=== PATIENT | female | born 1955 | race Caucasian/White ===

== ENCOUNTER 2016-09-28 15:03 | Emergency (ER) ==
[2016-09-28 15:11] VITALS: BP 131/71
[2016-09-28] MEDS ORDERED: NORCO-5 PO ONE (16:14)
--- NOTE | 2016-09-28 16:19 | PROVIDER DOCUMENTATION ---
HPI-Musculoskeletal Pain/Inj - GENERAL Source: patient - HX OF PRESENT ILLNESS-MUSKULOSKELTAL Quality of Pain: reports: aching Severity in ED: mild Onset/Duration: just prior to arrival Timing: still present, intermittent Modifying Factors: improves with: nothing Any recent injury?: Yes (fall ) Locality of Occurance: Home Similar Symptoms Previously?: Yes Recently seen or treated by another doctor?: No - FALL INJURY Location of Pain/Injury: reports: lower extremity (L knee) Pain Radiation: reports: no radiation Reason for Fall: reports: tripped Symptoms prior to fall:: reports: none Loss of Consciousness: no loss of consciousness Injury Associated Symptoms: reports: other (L knee pain) - LOWER EXTREMITY PAIN/INJURY Lower Extremities Pain: knee: left (pain ) Context / Method of Injury: reports: fell Associated Symptoms: reports: denies symptoms <Maia Bailey - Last Filed: 09/28/16 16:13> <Maxine Brannon - Last Filed: 09/28/16 16:26> - GENERAL Chief Complaint: Fall Stated Complaint: FALL Time Seen by Provider: 09/28/16 16:04 - HX OF PRESENT ILLNESS-MUSKULOSKELTAL Nature of Presenting Problem: Pt is 61 y/o F presents to the ED with L knee pain. Pt states tripping through door and landing on L knee. Pt denies LOC. Pt states fall happened today. (Maia Bailey) Review of Systems - Adult - REVIEW OF SYSTEMS - ADULT Constitutional: reports: no symptoms reported Eyes: reports: no symptoms reported Ears, Nose, Mouth & Throat: reports: no symptoms reported Cardiovascular: reports: no symptoms reported Respiratory: reports: no symptoms reported Gastrointestinal: reports: no symptoms reported Genitourinary: reports: no symptoms reported Musculoskeletal: reports: other (L knee). denies: bone pain, joint pain, neck pain Integumentary: reports: no symptoms reported Neurological: reports: no symptoms reported Psychiatric: reports: no symptoms reported Endocrine: reports: no symptoms reported Hematologic/Lymphatic: reports: no symptoms reported Allergic/Immunologic: reports: no symptoms reported All Other Systems: Reviewed and Negative <Maia Bailey - Last Filed: 09/28/16 16:13> Past History - Adult - PAST MEDICAL HISTORY-ADULT Review of Records: reports: Nursing Assessment Review, Medications Reviewed, Social history reviewed & non-contributory. Major Childhood Illnesses: reports: denies history Cardiovascular: reports: cardiac disease, HTN, hyperlipidemia Respiratory: reports: denies history Gastrointestinal: reports: denies history Obstetrical/Gynecological: reports: denies history Genitourinary: reports: denies history Musculoskeletal: reports: other (carpal tunnel) Neurological: reports: Multiple Sclerosis Endocrine/Immune: reports: Diabetes Other Conditions: reports: denies history - PRIOR SURGERIES/PROCEDURES Surgical/Procedure History: reports: CABG, hysterectomy, other (AAA repair, ulnar nerve release bilat UE) - IMMUNIZATION STATUS Childhood Immunizations: See Nurse Assessment Flu Vaccine: See Nurse Assessment - FAMILY HISTORY Family History: reviewed, not pertinent - SOCIAL HISTORY Smoking: denies Substance Use: denies Living Situation: family <Maia Bailey - Last Filed: 09/28/16 16:13> Physical Exam-Injury Related - Physical Exam-Injury Related Initial Vital Signs Reviewed: Yes General Appearance: appears well, alert, no apparent distress Eyes: PERRL/EOMI, pink conjunctivae, fundi clear, no AV nicking Head, Ears, Nose, Mouth & Throat: normocephalic/atraumatic, moist mucous membranes, normal ENT inspection, TMs normal, pharynx normal Neck: non-tender, full range of motion, supple, normal inspection Respiratory: chest non-tender, lungs clear, normal breath sounds, no pleuratic chest pain, no respiratory distress, no accessory muscle use Cardiovascular: normal peripheral pulses, regular rate, rhythm, no edema, no gallop, no JVD, no murmur Abdominal Exam: normal bowel sounds, non tender, soft, no organomegaly, no pulsatile mass Lymphatic: no adenopathy Back Exam: normal inspection, no CVA tenderness, no vertebral tenderness Extremity: normal range of motion, no pedal edema, no calf tenderness, normal capillary refill, tenderness (L knne) Integumentary: normal color, warm/dry Neurologic: grossly normal Psych/Mental Status: normal mood/affect, oriented x 3 <Maia Bailey - Last Filed: 09/28/16 16:13> Progress - XRAY 1 XRAY: Left XRAY Study: Knee Impression: Abnormal XRAY Interpretation: ? small nondepressed fracture of lateral tibial plateau <Maia Bailey - Last Filed: 09/28/16 16:13> <Maxine Brannon - Last Filed: 09/28/16 16:26> - PLAN OF CARE/RESULTS Progress/Plan/Lab Results: Orders Category Date Time Status Crutches DIRECTED Care 09/28/16 16:14 Active Knee Immobilizer .left Care 09/28/16 16:14 Active KNEE 3 VIEWS LEFT [RAD] Stat Exams 09/28/16 15:11 Taken Hydrocodone/APAP 5 mg/325 mg [Belt-5] Med 09/28/16 16:14 Discontinued 1 each PO NOW ONE Vital Signs - 24 hr 09/28/16 15:07 Temperature 98 F Pulse Rate 90 Respiratory 18 Rate Blood Pressure 131/71 O2 Sat by Pulse 98 Oximetry (Maia Bailey) Discussed results and plan of care with patient. Patient agrees with plan and verbalizes understanding. Vital Signs Temp Pulse Resp BP Pulse Ox 09/28/16 15:07 98 F 90 18 131/71 98 No Known Allergies Allergy (Verified 09/01/16 18:32) Aspirin 325 mg PO DAILY 05/15/15 Clonazepam [Klonopin] 0.5 mg PO DAILY PRN PRN 05/15/15 Clopidogrel Bisulfate [Plavix] 75 mg PO DAILY 05/15/15 Ezetimibe [Zetia] 10 mg PO DAILY 05/15/15 Levothyroxine [Synthroid] 25 mcg PO DAILY 05/15/15 Sertraline HCl 50 mg PO DAILY 05/15/15 Tramadol [Ultram] 50 - 100 mg PO Q6H PRN PRN 02/18/16 Amlodipine Besylate 10 mg PO DAILY 07/02/16 Atorvastatin Calcium 20 mg PO DAILY 07/02/16 Bupropion HCl 100 mg PO BID 07/02/16 Carvedilol 12.5 mg PO BID 07/02/16 Hydrocodone/Acetaminophen [Belt 5-325 Tablet] 1 each PO Q4-6H PRN PRN #20 tablet 07/02/16 Insulin Aspart [Novolog] 0 unit SQ DIRECTED 07/02/16 Insulin Aspart [Novolog] 28 unit SQ TID 07/02/16 Insulin Glargine [Lantus] 45 unit SUBQ BID 07/02/16 Nortriptyline HCl 75 mg PO HS 07/02/16 Phenytoin Sodium Extended 300 mg PO HS 07/02/16 Pregabalin [Lyrica] 300 mg PO BID 07/02/16 Tizanidine [Zanaflex] 4 - 8 mg PO TID 07/02/16 Trazodone HCl 150 mg PO HS 07/02/16 Tramadol [Ultram] 50 mg PO TID #10 tablet 09/01/16 Orders Category Date Time Status Crutches DIRECTED Care 09/28/16 16:14 Active Knee Immobilizer .left Care 09/28/16 16:14 Active KNEE 3 VIEWS LEFT [RAD] Stat Exams 09/28/16 15:11 Taken Hydrocodone/APAP 5 mg/325 mg [Belt-5] Med 09/28/16 16:14 Discontinued 1 each PO NOW ONE (Maxine Brannon) Departure <Maia Bailey - Last Filed: 09/28/16 16:13> - Departure Time of Disposition Order: 16:22 Certified Medical Emergency: Emergent <Maxine Brannon - Last Filed: 09/28/16 16:26> - Departure DIAGNOSIS: Tibia fracture Qualifiers: Encounter type: initial encounter Tibia location: proximal Fracture type: closed Fracture morphology: unspecified fracture morphology Laterality: left Qualified Code(s): S82.102A - Unspecified fracture of upper end of left tibia, initial encounter for closed fracture Disposition: HOME 01 Condition: Stable Additional Instructions: Follow up with primary care physician Follow up with orthopedic physician Take medications as directed Return to ED for any concerns or worsening of symptoms ED Follow Up Instructions: You have been treated by a care provider in the Emergency Department. These instructions are being provided to you so you can have an understanding of how to care for yourself upon discharge. Upon discharge from the Emergency Department, you are responsible for making arrangements for follow-up care by a physician of your choice. Take all prescribed medications as directed. Return to the Emergency Department immediately for any new or worsening symptoms. You may call the Physician Referral phone number at [phone] to obtain a list of Physicians who are taking new patients. Prescriptions: Hydrocodone/APAP 5 mg/325 mg [Belt-5] 1 each PO Q6H PRN PRN #12 tablet PRN Reason: Pain Referrals: Gumaro Person MD [Primary Care Provider] - Rubia Barraza MD [STAFF PHYSICIAN] - Attestation - Scribe Verification/Attestation Scribe:: Maia Bailey Acting as Scribe for:: Maxine Brannon Scribe documention review:: This chart was documented by a scribe and accurately reflects the service the provider performed and the decisions made by the provider. <Maia Bailey - Last Filed: 09/28/16 16:13> - Physician/ JHONATHAN Attestation Patient care was provided by Advanced Practice Provider:: Yes Advanced Practice Provider:: Maxine Brannon Advanced Practice Provider documentation review:: The Mid-level provider documentation, treatment plan and medical decision making was reviewed by the physician who agrees with all treatment and medical decision making by the MLP. <Maxine Brannon - Last Filed: 09/28/16 16:26> Physician Attestation
--- NOTE | 2016-09-28 19:07 | Diag Imaging Result Document ---
PROCEDURE NAME: KNEE 3 VIEWS LEFT - 09/28/2016 LEFT KNEE 3 VIEWS: FINDINGS: Compared with 07/02/2016. There is a questionable small nondisplaced fracture of the lateral tibial plateau. There is no other fracture identified. There is no dislocation seen. There is no substantial thickening of the suprapatellar bursa seen. There are scattered atherosclerotic calcifications, and metallic surgical clips noted. IMPRESSION: Questionable small nondepressed fracture of lateral tibial plateau.
== END 2016-09-28 16:50 | disposition home or self-care (01) ==
LOC: P.ED 15:03
DX: S82.102A Unspecified fracture of upper end of left tibia, initial encounter for closed fracture (principal); M25.562 Pain in left knee; I10 Essential (primary) hypertension; E78.5 Hyperlipidemia, unspecified; E11.9 Type 2 diabetes mellitus without complications; G35 Multiple sclerosis; Z95.1 Presence of aortocoronary bypass graft; W01.0XXA Fall on same level from slipping, tripping and stumbling without subsequent striking against object, initial encounter

== ENCOUNTER 2016-12-05 20:54 | Inpatient (IN) ==
[2016-12-05] MEDS ORDERED: DILAUDID IV ONE (23:20)
[2016-12-05] MEDS ORDERED: NORCO-5 PO PRN (23:34)
[2016-12-05] MEDS ORDERED: TYLENOL PO PRN (23:37)
[2016-12-05] MEDS ORDERED: DILAUDID IV PRN (23:37)
[2016-12-05] MEDS ORDERED: ZOFRAN IV PRN (23:37)
[2016-12-05] MEDS ORDERED: NS 1,000 ML IV SCH (23:37)
[2016-12-05] MEDS ORDERED: OXY IR PO PRN (23:48)
[2016-12-06] MEDS: COREG PO SCH ×3 (00:24→20:45)
[2016-12-06] MEDS: OFIRMEV 1000 MG/ISOTONIC SOLN 1,000 MG/100 ML BOTTLE IV SCH ×3 (00:24→17:01)
[2016-12-06] MEDS: KLONOPIN PO PRN ×2 (00:24→20:46)
[2016-12-06] MEDS: MIRALAX PO SCH ×3 (00:24→20:43)
[2016-12-06] MEDS: LANTUS SUBQ SCH ×3 (00:25→20:49)
--- NOTE | 2016-12-06 03:34 | HISTORY AND PHYSICAL ---
PRIMARY CARE PHYSICIAN: REASON FOR ADMISSION: Left hip pain after a fall today. HISTORY OF PRESENT ILLNESS: Analilia Birmingham is a 61-year-old lady with past medical history of multiple sclerosis, IBS, coronary artery disease, sleep apnea, type 2 diabetes, hyperlipidemia, reflux disease, kidney stones, multiple sclerosis. She reports that she has had numerous falls and sustained 3 fractures since July 02 of last year. The most recent fracture was 4 metatarsal fractures of her right foot for which she was prescribed an orthopedic boot. She was trying to put on the boot today when she for some reason fell backwards, hit her head, and landed on the left side of her body. She denies any loss of consciousness. No headache or visual problems. When she tried to get up she could not because she had excruciating pain on the left hip. Her daughter was nearby and she managed to get her up and drove her to the ER in [facility]. During the evaluation they discovered she had a nondisplaced femoral neck fracture and contacted Dr. Price, the orthopedist, who recommended she be transferred to our service. The patient is complaining of pain 8 out of 10, excruciating, nonradiating, worse when she moves the slightest. Denies any numbness in her left lower extremity. No urinary incontinence. No cardiorespiratory complaints. Last took Plavix 3 days ago because she ran out of it. She takes Plavix and aspirin for CABG done several years ago. No blood loss. No cardiorespiratory complaints, GI, or any neurological complaints. REVIEW OF SYSTEMS: Twelve system review is negative. Positives per HPI. Notable for constipation. ALLERGIES: None. HOME MEDICATIONS: 1. Norvasc 5 mg daily. 2. Amantadine 100 mg b.i.d. 3. Aspirin 325 mg daily. 4. Plavix 75 mg daily. 5. Lipitor 20 mg daily. 6. Baclofen 10 mg t.i.d. 7. Tizanidine 48 mg t.i.d. 8. Bupropion 75 mg b.i.d. 9. Coreg 25 mg b.i.d. 10. Klonopin 0.5 mg b.i.d. 11. Klonopin 0.1 mg daily p.r.n. 12. Zetia 10 mg daily. 13. [place] 7.5 q.4h. p.r.n. 14. Ibandronate 150 mg monthly I presume . 15. NovoLog 28 units subcutaneous. 16. Lantus 45 units b.i.d. 17. Synthroid 25 mcg daily. 18. Lisinopril 20 mg b.i.d. 19. Nortriptyline 50 mg at bedtime. 20. Phenytoin 200 mg at bedtime. 21. Lyrica 300 mg b.i.d. 22. Zoloft 50 mg daily. 23. Tramadol 50 mg to 100 mg p.r.n. 24. Trazodone 150 mg at bedtime. SURGICAL HISTORY: Patient has had bypass surgery. She has had a AAA repair. Carpal tunnel surgery x2. Right ulnar nerve release. Bilateral shoulder surgery. Hysterectomy. FAMILY HISTORY: Positive for heart disease, diabetes and lung cancer in first-degree relative. SOCIAL HISTORY: Lives with daughter. She is . She has no habits whatsoever. LABORATORY WORK: BUN 20, creatinine 0.8. Glucose 63. Urinalysis is clean. White count 8000, H and H 12 and 37, platelets 178,000. EKG showed LVH with normal sinus rhythm. X-rays showed nondisplaced femoral neck fracture. PHYSICAL EXAMINATION: VITAL SIGNS: Her blood pressure is 194/73, heart rate is 85, respirations 18, temperature is 98.1. GENERAL: She is a middle-aged woman who is in moderate distress from her pain. She is A and O x3. Normal mood and affect. HEENT: Head is normocephalic, atraumatic. Eyes: NICHOLE, EOMI. She is anicteric, not pale. ENT: Exam is grossly normal. No central cyanosis. NECK: Supple. No JVD or carotid bruit. No thyromegaly. CHEST: Clear to auscultation with good air entry both lung harper. CARDIOVASCULAR: First and second heart sounds heard. No gallops, rubs. Rhythm is regular. ABDOMEN: Full, soft, nontender. No masses or organomegaly. Bowel sounds are hypoactive. RECTAL: Deferred at this time. EXTREMITIES: Left lower extremity is slightly shorter than the right and is not rotated. Pulses distally both extremities are intact. No sensory deficits. The patient is able to wiggle both sets of toes, but left less so than right because of the pain. No edema, clubbing or cyanosis. NEUROLOGIC SYSTEM: Grossly intact, although left lower extremity exam is limited due to the pain. SKIN: Intact. No breakdown, lesions or erythema. MUSCULOSKELETAL: Exam is grossly normal. ASSESSMENT: 1. Left hip fracture. 2. Coronary artery disease. 3. Peripheral artery disease. 4. Type 2 diabetes. 5. Hypertension. 6. Multiple sclerosis. 7. Hyperlipidemia. 8. Sleep apnea. PLAN: At this time, the patient will be admitted for pain control in anticipation of surgery tomorrow. The patient has no acute coronary symptoms. Due to the acute nature of her problems and stability of her problems, she can proceed with surgery with usual cardiovascular risk. For now, she says she ran out of her Plavix and this can be restarted postoperatively; however, she needs to be on aspirin throughout the course of her stay. This patient is on a ton of medications which could influence her sensorium and level of lucidity. The patient does not think this is causing any problems, but I am concerned that she has had several falls culminated in 4 fractures in less than 6 months. I strongly recommend that her medications be reviewed and either discontinued or tapered off most of these medications. Follow labs in the a.m. and I have cut the dose of her Lantus and insulin in light of the fact that she will be n.p.o. and probably her oral intake will also decline. Recommended A1c in a.m. and modify her insulin regimen accordingly. cc: Rocco Reyes MD
[2016-12-06 06:07] LABS: MANUAL DIFF NEEDED? NO
[2016-12-06] MEDS ORDERED: DILAUDID IV ONE (06:08)
[2016-12-06 06:13] LABS: BASO% 0.3 % (0.0-0.8); EOS# 0.08 X1000 (0.0-0.7); EOS% 1.2 % (0.0-10.0); HEMATOCRIT 33.4 % (37.0-47.0); HEMOGLOBIN 11.2 g/dL (12.0-16.0); IMM GRAN# 0.04 X1000 (0.0-0.04); IMM GRAN% 0.6 % (0.0-0.5); LYMPH# 1.79 X1000 (1.2-3.4); LYMPH% 26.4 % (20.5-51.1); MCH 30.9 PG (27-31); MCHC 33.5 g/dL (33-37); MONO# 0.59 X1000 (0.11-0.59); MONO% 8.7 % (1.7-9.3); MPV 11.1 FL (7.4-10.4); NEUT% 62.8 % (42.2-75.2); PLT 143 X1000 (130-400); RBC 3.63 XMIL (4.2-5.4)
[2016-12-06] MEDS ORDERED: DILAUDID ONE (06:21)
[2016-12-06 06:28] LABS: HEMOGLOBIN A1C 7.3 % (4.8-6.0)
[2016-12-06 06:38] LABS: AGAP 15; ALBUMIN 3.5 g/dL (3.5-5.0); ALKALINE PHOSPHATASE 111 U/L (32-104); BUN 16 mg/dL (8-22); CALCIUM 8.6 mg/dL (8.8-10.2); CHLORIDE 103 mmol/L (98-107); COSMO 283; GOT 14 U/L (10-30); GPT 16 U/L (10-36); POTASSIUM 3.8 mmol/L (3.5-5.1); SODIUM 141 mmol/L (136-145); TCO2 23 mmol/L (25-35); TOTAL BILIRUBIN 0.16 mg/dL (0.20-1.00); TOTAL PROTEIN 6.3 g/dL (6.3-8.3)
[2016-12-06] MEDS: HUMALOG SUBQ SCH ×4 (06:59→20:45)
[2016-12-06] MEDS ORDERED: INSULIN PEN NEEDLES ONE (07:36)
[2016-12-06] MEDS: DILAUDID IV PRN ×3 (09:23→23:21)
[2016-12-06] MEDS: ZOLOFT PO SCH (09:28)
[2016-12-06] MEDS: LYRICA PO SCH ×2 (09:29→20:44)
[2016-12-06] MEDS: SYMMETREL PO SCH ×2 (09:29→20:45)
[2016-12-06] MEDS: WELLBUTRIN PO SCH ×2 (09:30→20:45)
[2016-12-06] MEDS: ASPIRIN PO SCH (09:30)
[2016-12-06] MEDS: PRINIVIL PO SCH ×2 (09:30→20:46)
[2016-12-06] MEDS: NORVASC PO SCH (09:30)
[2016-12-06] MEDS: LIORESAL PO SCH ×3 (09:31→17:02)
[2016-12-06] MEDS ORDERED: KEFZOL 1 GM/D5W 1 GM/50 ML IVPB IV ONE (09:36)
[2016-12-06] MEDS: DILAUDID ONE ×4 (14:42→14:57)
[2016-12-06] MEDS ORDERED: NS 1,000 ML ONE (14:44)
[2016-12-06] MEDS ORDERED: MILK OF MAGNESIA PO PRN (16:01)
[2016-12-06] MEDS ORDERED: ZOFRAN IV PRN (16:01)
[2016-12-06] MEDS ORDERED: NS 1,000 ML IV SCH (16:01)
[2016-12-06] MEDS ORDERED: HALDOL IV PRN (16:01)
[2016-12-06] MEDS: OXY IR PO PRN ×2 (17:01→20:56)
[2016-12-06] MEDS: TYLENOL PO SCH (17:01)
--- NOTE | 2016-12-06 17:19 | CONSULTATION ---
DATE OF CONSULTATION: 12/06/2016 CHIEF COMPLAINT: Left hip pain. HISTORY OF PRESENT ILLNESS: This is a 61-year-old female who had a fall last night. Presented to the ER in [facility] and diagnosed with an impacted subcapital femoral neck fracture suspected by x- ray and confirmed by CT scan and then was referred to [facility]. She complains of intractable left hip pain and inability to ambulate. PHYSICAL EXAMINATION: General: Well-developed, well-nourished female. She is alert, oriented, and cooperative with the exam. She is painful just lying in bed. She has pain with any range of motion of her hip. Her leg is neurovascularly intact. DIAGNOSTIC STUDIES: X-rays of her hip from [place] show an impacted femoral neck fracture. IMPRESSION: Left impacted femoral neck fracture. PLAN: I have discussed treatment options with her and she wishes to proceed with closed reduction and percutaneous pinning of her left hip. I have discussed with her the risks, benefits, and alternatives of this including, but not limited to, bleeding, nerve damage, infection, risk from anesthesia, continued hip pain, hardware failure, malunion, nonunion, possibility of further surgery required up to and including loss of limb, life, and other imponderables. She voices her understanding. All questions were answered. She would requests we proceed as planned. No guarantees were given. cc: Ruy Price MD
--- NOTE | 2016-12-06 18:23 | PROGRESS NOTE ---
DATE: 12/06/2016 SUBJECTIVE: Today Ms. Birmingham referred to be doing relatively fine. Continues to have some pain in the left hip. Has been evaluated by orthopedics and she is pending surgery today. OBJECTIVE: Vital signs: Blood pressure is 162/70, pulse of 72, respirations 18, temperature 98.6 degrees, O2 saturation is 93%. General: Ms. Birmingham is a 61-year-old female. She is in bed. No significant distress. HEENT: Mucosa slightly dry. Anicteric and acyanotic. Neck: Supple. Chest: Good air entry bilateral. No crepitations. No rhonchi. Cardiovascular: Regular rate and rhythm. Chest: There is an old sternotomy scar on the anterior chest wall. Abdomen: Soft, nontender. Bowel sounds are present. Extremities: No pedal edema. Musculoskeletal: There is tenderness mobilizing the left hip. LABORATORY DATA: WBC is 6.79, hemoglobin is 11.2, platelet count of 143,000. Chemistry is reviewed and completely unremarkable. ASSESSMENT: 1. Left hip fracture. The patient has been evaluated by orthopedics and there is a plan to intervene. 2. History of coronary artery disease status post coronary artery bypass graft. Patient does not have any active signs and does not have any chest pain, shortness of breath, and there is no active symptoms related to the heart. I will do an EKG to make sure that she is safe for the surgery. 3. History of multiple sclerosis. According to the patient that is the reason why she has very poor balance and keeps on falling down. 4. Hypertension. Stable. 5. Dyslipidemia. Stable. 6. Diabetes mellitus with a presenting A1c of 7.3. Stable. PLAN: So in general, I think Ms. Birmingahm is relatively stable. She does not have any acute cardiac symptoms. We will do an EKG. I think if the EKG is okay she should be okay for her orthopedic surgery. cc: Gabriel Gibson MD
[2016-12-06] MEDS ORDERED: DIPRIVAN 1% ONE (19:57)
[2016-12-06] MEDS: PERIDEX MT SCH (20:43)
[2016-12-06] MEDS: DILANTIN PO SCH (20:44)
[2016-12-06] MEDS: LIPITOR PO SCH (20:45)
[2016-12-06] MEDS: SYNTHROID PO SCH (20:45)
[2016-12-06] MEDS: COLACE PO SCH (20:45)
[2016-12-06] MEDS: KEFZOL 1 GM/D5W 1 GM/50 ML IVPB IV SCH (20:48)
--- NOTE | 2016-12-06 22:43 | OPERATIVE NOTE ---
PROCEDURE DATE: 12/06/2016 PREOPERATIVE DIAGNOSIS: Left impacted femoral neck fracture. POSTOP DIAGNOSIS: Left impacted femoral neck fracture. PROCEDURE: Closed reduction and percutaneous pinning of left impacted femoral neck fracture. ANESTHESIA: General. SURGEON: Ruy Price MD. COMPLICATIONS: None. BLOOD LOSS: Minimal. DESCRIPTION OF PROCEDURE: The patient brought to operative suite and placed in supine position. After successful administration of general anesthesia, the patient's left hip was reduced under fluoroscopy and the left hip was prepped and draped in usual sterile fashion on the OSI bed. A longitudinal incision made overlying the flare of the greater trochanter, cannulated screw, guide pin was placed in center of the femoral canal on AP and lateral images. Once it was verified to be in good position 2 other pins were placed in inverted triangle position. Excellent placement of the pins was obtained. They were measured 80 mm inferiorly and 85 mm for the 2 superior pins and then the lateral cortex was reamed and the screws were driven into place under fluoroscopy. Once they were verified to be in good position the guide pins were removed and fluoroscopy again showed the pins in good position with the fracture well reduced. Wound was copiously irrigated. Skin edge approximated with 2-0 Vicryl. Skin was closed with skin tyler and a sterile dressing was applied. The patient tolerated the procedure well without complication. At the end the procedure all counts correct x2. The patient transferred to recovery room in stable condition. cc: Ruy Price MD
[2016-12-07] MEDS: DILAUDID IV PRN ×3 (03:16→23:03)
[2016-12-07] MEDS: OXY IR PO PRN ×3 (04:32→20:02)
[2016-12-07 06:17] LABS: HEMATOCRIT 33.5 % (37.0-47.0)
[2016-12-07] MEDS: KEFZOL 1 GM/D5W 1 GM/50 ML IVPB IV SCH (06:25)
[2016-12-07] MEDS: TYLENOL PO SCH ×3 (06:31→16:08)
[2016-12-07 06:45] LABS: AGAP 13; BUN 8 mg/dL (8-22); CALCIUM 8.4 mg/dL (8.8-10.2); CHLORIDE 104 mmol/L (98-107); COSMO 274; POTASSIUM 4.5 mmol/L (3.5-5.1); SODIUM 139 mmol/L (136-145); TCO2 22 mmol/L (25-35)
[2016-12-07] MEDS: HUMALOG SUBQ SCH ×4 (07:40→20:00)
[2016-12-07] MEDS: MIRALAX PO SCH ×2 (09:00→19:59)
[2016-12-07] MEDS: FERROUS SULFATE PO SCH (09:01)
[2016-12-07] MEDS: PERIDEX MT SCH ×2 (09:01→19:59)
[2016-12-07] MEDS: SYMMETREL PO SCH ×2 (09:01→20:01)
[2016-12-07] MEDS: ASPIRIN PO SCH (09:02)
[2016-12-07] MEDS: WELLBUTRIN PO SCH ×2 (09:02→20:01)
[2016-12-07] MEDS: PRINIVIL PO SCH ×2 (09:02→20:01)
[2016-12-07] MEDS: ZOLOFT PO SCH (09:02)
[2016-12-07] MEDS: NORVASC PO SCH (09:02)
[2016-12-07] MEDS: LIORESAL PO SCH ×3 (09:02→16:08)
[2016-12-07] MEDS: LYRICA PO SCH ×2 (09:03→20:01)
[2016-12-07] MEDS: COREG PO SCH ×2 (09:06→20:01)
[2016-12-07] MEDS ORDERED: EPHEDRINE ONE (09:07)
[2016-12-07] MEDS ORDERED: XYLOCAINE-MPF 2% ONE (09:07)
[2016-12-07] MEDS ORDERED: OFIRMEV 1000 MG/ISOTONIC SOLN 1,000 MG/100 ML BOTTLE ONE (09:07)
[2016-12-07] MEDS ORDERED: ROBINUL ONE (09:07)
[2016-12-07] MEDS ORDERED: NEO-SYNEPHRINE ONE (09:07)
[2016-12-07] MEDS ORDERED: ZOFRAN ONE (09:07)
[2016-12-07] MEDS ORDERED: DECADRON ONE (09:07)
--- NOTE | 2016-12-07 17:16 | PROGRESS NOTE ---
DATE: 12/07/2016 SUBJECTIVE: Today Ms. Farrell refers to be doing a lot better. She says she is not hurting at all. She had the surgery done yesterday and she is fine. OBJECTIVE: Vital signs: Blood pressure is 113/50, pulse of 71, respirations 18, temperature is 98.3 degrees. General: Ms. Birmingham is a 61-year-old female. She is in bed, not seemingly distressed. HEENT: Mucosa is pink and moist. Anicteric and acyanotic. Neck: Supple. Chest: Clear. Cardiovascular: Regular rate and rhythm. Abdomen: Soft, nontender. Extremities: No pedal edema. The left hip is mildly tender on palpation. LABORATORY DATA: Hemoglobin is 11. Chemistry is reviewed, completely normal. ASSESSMENT: 1. Left hip fracture status post intervention. Two screws were applied. This was done by Dr. Price yesterday. 2. History of coronary artery disease status post coronary artery bypass graft . The patient is stable. There are not any active signs of coronary artery disease. 3. History of multiple sclerosis. 4. Hypertension. 5. Dyslipidemia. 6. Diabetes mellitus with presenting A1c of 7.3. PLAN: In general, Ms. Birmingham is doing fine. She got physical therapy today, she was able to sit up in a chair. She is going to continue with physical therapy. We will plan her discharge possibly for tomorrow. We did discuss the possibility of rehab with her, but she thinks she will be okay at home. She already has a home health agency that checks on her. cc: Gabriel Gibson MD
[2016-12-07] MEDS: LANTUS SUBQ SCH (19:59)
[2016-12-07] MEDS: SYNTHROID PO SCH (20:00)
[2016-12-07] MEDS: DILANTIN PO SCH (20:00)
[2016-12-07] MEDS: COLACE PO SCH (20:01)
[2016-12-07] MEDS: LIPITOR PO SCH (20:02)
[2016-12-07] MEDS: KLONOPIN PO PRN (23:03)
[2016-12-08] MEDS: TYLENOL PO SCH ×2 (04:02→05:20)
[2016-12-08] MEDS: OXY IR PO PRN (05:21)
[2016-12-08 05:37] LABS: HEMOGLOBIN 11.5 g/dL (12.0-16.0)
[2016-12-08] MEDS: HUMALOG SUBQ SCH (07:22)
[2016-12-08] MEDS: PRINIVIL PO SCH (08:18)
[2016-12-08] MEDS: SYMMETREL PO SCH (08:18)
[2016-12-08] MEDS: MIRALAX PO SCH (08:18)
[2016-12-08] MEDS: LYRICA PO SCH (08:19)
[2016-12-08] MEDS: ASPIRIN PO SCH (08:19)
[2016-12-08] MEDS: FERROUS SULFATE PO SCH (08:19)
[2016-12-08] MEDS: WELLBUTRIN PO SCH (08:19)
[2016-12-08] MEDS: ZOLOFT PO SCH (08:19)
[2016-12-08] MEDS: COREG PO SCH (08:19)
[2016-12-08] MEDS: NORVASC PO SCH (08:19)
--- NOTE | 2016-12-08 08:34 | PROGRESS NOTE ---
DATE: 12/08/2016 SUBJECTIVE: Analilia Birmingham is a 61-year-old female who is postoperative day 2 from closed reduction and percutaneous pinning of her left hip. 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 However, she has not progressed much with therapy. She has no complaints as far as pain of her hip is concerned, however. OBJECTIVE: General: She is a well-developed, well-nourished female. She is cooperative with exam. She has no pain with range of motion of her hip. Her wound is clean, dry, and intact without sign of infection. ASSESSMENT: Stable left hip. PLAN: Given her recent falls and the fact that she has been unable to ambulate, I do not recommend that she be discharge to home. However, if she does leave AMA recommend that she have home health which she already has and be sure that she has close supervision. I suspect if she goes home this early she will likely fall again and we will be seeing her back in the hospital. If she does go home I would like to see her back in the office next week. I have made an appointment in the computer. cc: Ruy Price MD
[2016-12-08] MEDS ORDERED: PLAVIX PO SCH (09:00)
[2016-12-08] MEDS ORDERED: LIORESAL PO SCH (09:00)
[2016-12-08 11:07] VITALS: BP 151/67
--- NOTE | 2016-12-08 19:08 | DISCHARGE SUMMARY ---
ADMISSION DATE: 12/05/2016 DISCHARGE DATE: 12/08/2016 CONSULTATIONS: Dr. Ruy Price with Orthopedics. PERTINENT PROCEDURES: A closed reduction and percutaneous pinning of left impacted femoral neck fracture. DISCHARGE DIAGNOSES: 1. Left hip fracture status post intervention, two screws were applied by Dr. Price. The patient has worked with physical therapy. We talked extensively to the patient as well as the daughter about the patient's need to be discharged to rehab however they have declined. The patient has been set up with [facility] with physical therapy. 2. History of falls. Aware. The patient and daughter have refused rehab. They have been set up with [facility]. 3. Coronary artery disease history status post CORONARY ARTERY BYPASS GRAFT. Stable. 4. Multiple sclerosis history. Aware. 5. Hypertension. 6. Dyslipidemia. 7. Diabetes mellitus with an A1c of 7.3. HOSPITAL COURSE: Ms. Birmingham is a 61-year-old female with past medical history multiple sclerosis, IBS, coronary artery disease, sleep apnea, type 2 diabetes, hyperlipidemia, GERD, kidney stones, multiple sclerosis. She reports that she has had numerous falls and sustained 3 fractures since July 02 of last year. Most recent fracture was for metatarsal fractures on the right foot for which she was just prescribed an orthopedic boot. She was trying to put the boot on and fell backwards and hit her head and landed on the left side of her body. She denied any loss of consciousness. No headache or visual problems. When she tried to get up she could not because she had excruciating pain in her left hip. Her daughter was nearby and managed to get the patient up and drove her to the ED in [facility]. During the evaluation she was discovered to have a nondisplaced femoral neck fracture. They contacted Dr. Price, the orthopedist who recommended her to be transferred to [facility] where she underwent a closed reduction and percutaneous pinning of the left impacted femoral neck fracture by Dr. Price. Dr. Price, as well as Dr. Gibson and social work instructor suggested rehab however her and her daughter have refused to go to rehab so [facility] has been set up. They did want the patient to go to rehab because they suspect if she goes home she will likely fall again and we will be seeing her back in the hospital. Dr. Price would like to see her back in 1 week. The patient did work with physical therapy while she was in the hospital. They did speak with the daughter again about the patient being a fall risk however she stated that there would be family members present to help care for the patient. Vital signs at time of her discharge, temperature is 98.1 degrees, heart rate 78, respirations 16, blood pressure 151/67, O2 is 97 % on 3 L nasal cannula. DISCHARGE DIET: Diabetic. DISCHARGE MEDICATIONS: As per Dr. Gibson. Please see MAR. FOLLOWUP: The patient is being discharged home with home health with [facility]. She will follow up with her primary care physician as well as Dr. Price on 12/17/2016 at 8:30 a.m. Patient can return to the ED for any worsening of symptoms. Discharge time 30 minutes. Dictated by BEHZAD Armstrong for Gabriel iGbson MD cc: Gabriel Gibson MD MTDD
[2016-12-09] MEDS ORDERED: XARELTO PO SCH (06:00)
== END 2016-12-08 12:26 | disposition home health service (06) ==
LOC: SUATTDRO 20:54 → 4N 20:54
PROVIDERS: ATTEND Internal Medicine

== ENCOUNTER 2017-03-03 20:30 | Inpatient (IN) ==
[2017-03-03] MEDS ORDERED: TYLENOL PO PRN (21:59)
[2017-03-03] MEDS ORDERED: ATIVAN IV PRN (22:13)
--- NOTE | 2017-03-03 22:49 | HISTORY AND PHYSICAL ---
REASON FOR ADMISSION: Possible intentional drug overdose and seizure. HISTORY OF PRESENT ILLNESS: Ms. Analilia Birmingham is a 61-year-old lady with multiple sclerosis, coronary artery disease, hypertension, hyperlipidemia, who was last seen here in November 2016 for a left hip fracture after a fall. She also has a history of type 2 diabetes, sleep apnea, irritable bowel syndrome, reflux disease. She called her daughter yesterday stating that she was in excruciating pain and numbness in her right extremity at 5 a.m. yesterday. She eventually was seen at [facility] where they did a CT scan and ruled out a stroke and assumed this was a flare up of multiple sclerosis. She then went home and about 8:30 a.m. she called her daughter who lives with her and told her that her pain had gotten worse. Daughter called her neurologist in [place] who scheduled an appointment to see her in the office tomorrow. The patient's daughter said she came home and found her mother on the floor altered, drowsy and then called EMS to bring her in. On arrival to the ER there, she was very obtunded and they thought she may have overdosed on tramadol. This is based on the fact that several pills of tramadol were scattered on the floor around her. She was given Narcan and about 30 minutes later she had a tonic-clonic seizure. She became very restless, and she was given some Ativan which calmed her down. The patient is unable to give me a good detailed history because she is very lethargic, but she did tell me that she had been hearing voices and she was depressed and she wanted to kill herself, but she said the voices did not tell her to hurt herself. The daughter tells me that she knows her mother is depressed, but she does not think she is psychotic. She thinks it might be something to do with an auditory problem she has from hearing apparatus in her head. REVIEW OF SYSTEMS: Twelve system review is very limited because of the patient's drowsy sensorium. She denies any GI or cardiorespiratory complaints at this time. ALLERGIES: No allergies. HOME MEDICATION LIST: Could not be ascertained because nobody knows what she is currently taking but per her old records, she was on amantadine, amlodipine, aspirin, Lipitor, baclofen, bupropion, Coreg, clonazepam, clonidine, Colace, ferrous sulfate, Boniva, NovoLog, Lantus, Synthroid, lisinopril, oxycodone, Dilantin, Lyrica, Xarelto, Zoloft, tramadol. PAST SURGICAL HISTORY: Patient has had bypass surgery. Abdominal aortic aneurysm repair. Carpal tunnel surgery. Right ulnar release. Bilateral shoulder surgery. Hysterectomy. More recently, left hip surgery. FAMILY HISTORY: Notable for heart disease, diabetes and lung cancer. SOCIAL HISTORY: Does not smoke, drink or use illicit drugs. She is . Lost her in July 2016. Lives with her daughter. LABORATORY WORK: Her white count is 9000, hemoglobin and hematocrit 12 and 35, platelets 155,000. BUN is 18, creatinine 0.5. UDS positive for barbiturates. EKG: First-degree AV block, normal sinus rhythm. Glucose 173. Urinalysis only 2+ protein was noted. PHYSICAL EXAMINATION: GENERAL: Middle-aged woman who is very lethargic. Will open eyes to her name. She is oriented only to person. She will follow basic commands i.e. move her fingers and toes when instructed, but other than that, I could not get much out of her. She has a flat affect. HEENT: Head is normocephalic, atraumatic. Eyes: NICHOLE, EOMI. She is anicteric and not pale. No nystagmus noted. No anisocoria noted. ENT and oropharyngeal exam is very limited, but no central cyanosis is noted. NECK: Supple. No JVD or carotid bruit. No thyromegaly. CHEST: Clear to auscultation. Good air entry both lung harper. CARDIOVASCULAR: First and second heart sounds heard. No gallops, murmurs, rubs. Rhythm is regular. ABDOMEN: Protuberant, soft, no tenderness. No megaly. Bowel sounds are hypoactive. RECTAL: Deferred at this time. EXTREMITIES: No edema, clubbing or cyanosis. Pulses distally in all extremities and have good volume and symmetrical. No edema. NEUROLOGIC: No focal deficits. SKIN: Intact. No breakdown lesion or erythema. MUSCULOSKELETAL: Grossly normal otherwise. ASSESSMENT: 1. Toxic encephalopathy probably from intentional drug overdose. 2. Seizures, probably related to Narcan, effect of inducing withdrawal from synthetic opioids. 3. Coronary artery disease. 4. Peripheral artery disease. 5. Type 2 diabetes. 6. Hypertension. 7. Multiple sclerosis. 8. Sleep apnea. 9. Hyperlipidemia. PLAN: At this time, we will keep patient in intensive care unit for close observation to ensure she does not have a repeat seizure, check her Dilantin level and if it is low, this may need to be corrected. We will resume all home medications that have antiepileptic properties i.e. Dilantin, Lyrica and clonazepam. I do believe patient's medication list needs to be re-evaluated because she is on several medications. May be interacting. She also might benefit from seeing a psychiatrist once she is medically stable due to the fact that she has a depressive component. DVT prophylaxis will be instituted. Fluids will be given and other supportive care will be instituted. cc: Rocco Reyes MD
[2017-03-03] MEDS: NS 1,000 ML IV SCH (23:40)
[2017-03-03] MEDS: ZOFRAN IV PRN (23:41)
[2017-03-03] MEDS: HEPARIN SUBQ SCH (23:54)
[2017-03-03] MEDS: COREG PO SCH (23:59)
[2017-03-03] MEDS: KLONOPIN PO SCH (23:59)
[2017-03-03] MEDS: DILANTIN PO SCH (23:59)
[2017-03-03] MEDS: LYRICA PO SCH (23:59)
[2017-03-04 06:34] LABS: MANUAL DIFF NEEDED? NO
[2017-03-04 06:38] LABS: BASO% 0.2 % (0.0-0.8); EOS# 0.02 X1000 (0.0-0.7); EOS% 0.2 % (0.0-10.0); HEMATOCRIT 34.8 % (37.0-47.0); HEMOGLOBIN 11.6 g/dL (12.0-16.0); IMM GRAN# 0.03 X1000 (0.0-0.04); IMM GRAN% 0.2 % (0.0-0.5); LYMPH# 1.53 X1000 (1.2-3.4); LYMPH% 12.4 % (20.5-51.1); MCH 31.1 PG (27-31); MCHC 33.3 g/dL (33-37); MCV 93.3 FL (81-99); MONO# 0.86 X1000 (0.11-0.59); MONO% 6.9 % (1.7-9.3); MPV 11.4 FL (7.4-10.4); NEUT% 80.1 % (42.2-75.2); PLT 150 X1000 (130-400); RBC 3.73 XMIL (4.2-5.4)
[2017-03-04 07:04] LABS: AGAP 13; ALBUMIN 3.8 g/dL (3.5-5.0); ALKALINE PHOSPHATASE 114 U/L (32-104); BUN 13 mg/dL (8-22); CALCIUM 8.5 mg/dL (8.8-10.2); CHLORIDE 104 mmol/L (98-107); COSMO 286; GOT 19 U/L (10-30); GPT 25 U/L (10-36); MAGNESIUM 1.5 mg/dL (1.5-2.7); POTASSIUM 4.1 mmol/L (3.5-5.1); SODIUM 143 mmol/L (136-145); TCO2 26 mmol/L (25-35); TOTAL BILIRUBIN 0.12 mg/dL (0.20-1.00); TOTAL PROTEIN 6.2 g/dL (6.3-8.3)
--- NOTE | 2017-03-04 07:45 | EKG Report ---
Test Performed on : 03/04/2017 05:56:10 AM Test Reason : chest pain Blood Pressure : / mmHG Vent. Rate : 078 BPM Atrial Rate : 078 BPM P-R Int : 168 ms QRS Dur : 096 ms QT Int : 410 ms P-R-T Axes : 057 -19 079 degrees QTc Int : 467 ms Normal sinus rhythm. Moderate voltage criteria for LVH, may be normal variant Borderline ECG When compared with ECG of 03-MAR-2017 22:44, (Unconfirmed) Nonspecific ST and T wave abnormality aVL T wave amplitude has increased in V1 shifted left persistant inferiorly Confirmed by Fantasma Michael DO ([id number]) on 03/06/2017 3:45:41 PM
--- NOTE | 2017-03-04 07:46 | EKG Report ---
Test Performed on : 03/03/2017 10:44:05 PM Test Reason : drug od Blood Pressure : / mmHG Vent. Rate : 085 BPM Atrial Rate : 085 BPM P-R Int : 238 ms QRS Dur : 092 ms QT Int : 404 ms P-R-T Axes : 030 -16 095 degrees QTc Int : 480 ms Sinus rhythm. with 1st degree AV block. Possible Left atrial enlargement Left ventricular hypertrophy with repolarization abnormality Abnormal ECG When compared with ECG of 01-SEP-2016 18:42, NH interval has increased Confirmed by Fantasma Michael DO ([id number]) on 03/06/2017 3:44:34 PM
[2017-03-04] MEDS: ZOFRAN IV PRN ×2 (08:18→15:15)
[2017-03-04] MEDS: LYRICA PO SCH ×2 (08:18→20:33)
[2017-03-04] MEDS: KLONOPIN PO SCH ×2 (08:19→20:33)
[2017-03-04] MEDS: COREG PO SCH ×2 (08:19→20:33)
[2017-03-04] MEDS: ASPIRIN PO SCH (08:19)
[2017-03-04] MEDS ORDERED: TYLENOL PO PRN (09:41)
--- NOTE | 2017-03-04 12:07 | Diag Imaging Result Doc PS360 ---
EXAM: MRI BRAIN W W/O CONTRAST HISTORY: multiple sclerosis TECHNIQUE: Axial, sagittal, and coronal images obtained in multiple sequences. These are followed the post contrasted axial and coronal images. COMPARISON: CT from 07/02/2016 FINDINGS: There is a 6 mm area of increased signal on the diffusion images in the left parietal lobe just above the lateral ventricle. This has increased signal on the FLAIR and T2-weighted images. No enhancement on the post contrasted images. There is only a single other tiny area of increased signal on the T2 and FLAIR weighted images within the left temporal lobe measuring only 1 to 2 mm. No other areas of abnormal signal. No midline shift. No hydrocephalus. No epidural or subdural fluid collection. Normal corpus callosum. Mild atrophy. IMPRESSION: 1.Mild atrophy 2.No enhancing mass 3.7 mm area of abnormal signal in the left parietal lobe. This may simply be a tiny recent lacunar infarct. No other abnormal areas to suggest multiple sclerosis. Electronically signed by Shant Marina 03/04/2017 12:05 PM
[2017-03-04] MEDS: NS 1,000 ML IV SCH ×2 (12:29→15:15)
[2017-03-04] MEDS: HEPARIN SUBQ SCH ×2 (13:15→23:09)
--- NOTE | 2017-03-04 13:43 | CONSULTATION ---
DATE OF CONSULTATION: 03/04/2017 HISTORY OF PRESENT ILLNESS: Ms. Birmingham is 61 years old and she had apparent first ever seizure yesterday. History from review of the available hospital chart and discussion with daughter at the bedside and discussion with the patient is that she took too many pills. There was earlier concern that she had taken too many tramadol because tramadol bottle and pills were discovered near her. However, her report to me now is that she did not take too many tramadol, but that she did take too many Zanaflex. When asked if this was "a few or a bunch," she said "a bunch." She reports not certain how many extra pills she took. Daughter supervises medicines. Home medicines include clonazepam 0.5 mg b.i.d. p.r.n. and daughter reports patient takes 1 dose each night. Daughter provides tramadol 50 mg 2 tablets each night, and patient has access to tramadol bottle during the day. Daughter reports tizanidine two tablets each night and patient has access to tizanidine bottle during the day. Daughter does not count tizanidine or tramadol pills. She also has phenytoin 300 mg daily recently for limb pain and phenytoin level was 4.3 this admission. She takes Lyrica 300 mg b.i.d. regularly without recent missed doses. Other than tramadol, medicines on board that might influence seizure threshold include bupropion possibly 75 mg b.i.d. Workup here includes lab showing WBC count 12,000, mildly elevated blood sugars , nothing else remarkable on chemistry profile. We do not have urine toxicology screen. Brain imaging this admission includes MRI done with and without contrast today reported to show 7 mm area of abnormal signal in the left parietal lobe, which seems most consistent with ischemic lesion. There are a few other scattered ischemic changes. Features are not typical of multiple sclerosis. There is no enhancement. The daughter and patient report no previous history of seizure. She has had some periods of sluggishness associated with blood sugar too high or too low, but never seizure. There may have been some medication errors in the past, but never seizure. On exam, Ms. Birmingham is supine, intermittently attentive, answering questions appropriately, following simple commands. I do not see any major focal neurologic deficit. I did not examine her motor and sensory systems thoroughly. There is no meningismus. Head is unremarkable. IMPRESSION: Clinical appearance is global encephalopathy, likely toxic encephalopathy related to either tramadol or tizanidine or both. Report that she had likely seizure is more consistent with tramadol effect than tizanidine. With Lyrica and phenytoin on board, although phenytoin level subtherapeutic, seizure would have been thought less likely. Appearance does not seem to be clonazepam withdrawal, and daughter's history sounds like she has not had clonazepam withdrawal. I do not have any urgent suggestion. When she is more alert and attentive, we can be more vigorous with neurologic exam and try to determine if the MRI finding correlates with any neurologic deficit. We might consider EEG later. For now, I would continue support and be optimistic she will continue spontaneous recovery. I have encouraged her and her daughter to take medicines as directed. Thanks for asking me to see Ms. Birmingham. cc: Nilam Alvarez III, MD MTDD
--- NOTE | 2017-03-04 17:41 | PROGRESS NOTE ---
DATE: 03/04/2017 SUBJECTIVE: The patient is groggy but able to answer questions. No acute events noted overnight. OBJECTIVE: Vital Signs: Temperature 98.5 degrees, blood pressure 162/73, heart rate 74, respirations 18, O2 saturation 94% on 4 L nasal cannula. General: This is an elderly female, lying in bed, in no acute distress. Head: Normocephalic, atraumatic. Heart: S1, S2. Normal. Regular rate and rhythm. Lungs: Clear to auscultation bilaterally. No wheezes. No rales. No rhonchi. Abdomen: Positive bowel sounds. Soft, nontender, nondistended. Extremities: No edema. No cyanosis. No calf tenderness. Neurologic: The patient is alert and oriented x3. No focal neurologic deficits noted. LABS: White blood cell count 12, hemoglobin 11, hematocrit 34, platelets 150,000. BUN 13, creatinine 0.5, sodium 143, potassium 4.1, chloride 104, CO2 26, glucose 120. ASSESSMENT AND PLAN: 1. Toxic encephalopathy. The patient took multiple medications and this is likely the reason for the patient's lethargy at this time. We will continue with gentle IV fluid hydration and wait for the medications to clear the patient's system. The patient has been seen by the neurologist and an MRI was done today that showed a possible left parietal area of ischemia. 2. Left parietal ischemia. The patient is on aspirin and Lipitor. We will continue to monitor the patient closely. Physical therapy has been consulted. 3. Coronary artery disease. Aware. 4. Multiple sclerosis. Aware. 5. Leukocytosis. Will check a urinalysis and urine culture. We will hold off on antibiotic therapy until those results are available. 6. Deep vein thrombosis prophylaxis. Continue on heparin. cc: Nadia Carr MD
[2017-03-04 18:55] LABS: URINE MICRO REVIEW NEEDED? NO; URINE SOURCE CATH
[2017-03-04 19:21] LABS: BILIRUBIN URINE NEGATIVE (NEGATIVE); BLOOD URINE SMALL (NEGATIVE); COLOR YELLOW; GLUCOSE URINE 100 mg/dL (NEGATIVE); LEUKOCYTES URINE NEGATIVE (NEGATIVE); NITRITE URINE NEGATIVE (NEGATIVE); PROTEIN URINE 70 mg/dL (NEGATIVE); SP GRAVITY URINE 1.025; TURBIDITY URINE CLEAR (CLEAR); UROBILINOGEN URINE NORMAL (NORMAL)
[2017-03-04 19:22] LABS: UR EPITHELIAL CELLS <10 /HPF (<10); URINE BACTERIA NEGATIVE /HPF; URINE RBC 20-40 /HPF (<10); URINE WBC <10 /HPF (<10)
[2017-03-04] MEDS: DILANTIN PO SCH (20:33)
[2017-03-04] MEDS: LIPITOR PO SCH (20:33)
[2017-03-05] MEDS: NS 1,000 ML IV SCH (02:28)
[2017-03-05] MEDS: PRILOSEC PO SCH (06:01)
[2017-03-05 07:17] LABS: HEMATOCRIT 34.1 % (37.0-47.0); HEMOGLOBIN 11.3 g/dL (12.0-16.0); MCH 32.3 PG (27-31); MCHC 33.1 g/dL (33-37); MCV 97.4 FL (81-99); MPV 12.3 FL (7.4-10.4); RBC 3.5 XMIL (4.2-5.4)
[2017-03-05 07:36] LABS: AGAP 12; BUN 9 mg/dL (8-22); CALCIUM 8.3 mg/dL (8.8-10.2); CHLORIDE 101 mmol/L (98-107); COSMO 278; POTASSIUM 3.8 mmol/L (3.5-5.1); SODIUM 139 mmol/L (136-145); TCO2 26 mmol/L (25-35)
[2017-03-05] MEDS: COREG PO SCH ×2 (08:55→21:10)
[2017-03-05] MEDS: ASPIRIN PO SCH (08:55)
[2017-03-05] MEDS: KLONOPIN PO SCH ×2 (08:55→21:11)
[2017-03-05] MEDS: LYRICA PO SCH ×2 (08:55→21:10)
--- NOTE | 2017-03-05 09:50 | PROGRESS NOTE ---
DATE: 03/05/2017 SUBJECTIVE/OBJECTIVE: Ms. Birmingham is awake, alert, attentive, oriented. She carried on appropriate conversation. Speech is not dysarthric. Language function is intact on brief bedside testing. Head and neck are unremarkable. There is no focal neurologic finding on bedside testing of power and coordination. I did not test her gait. Visual harper are full. Facial motility is symmetric. Tongue is midline. Shoulder shrug is equal. She reports being more certain now that she took 2 small cupfuls of tizanidine and that she did not take extra tramadol. IMPRESSION AND PLAN: 1. Global encephalopathy, toxic encephalopathy related to drug ingestion, resolving predictably, no evidence of permanent neurologic residual. I strongly encouraged her, with daughter present, to be careful with her medicines and to take them as directed. 2. Imaging evidence of small left hemisphere lesion consistent with infarction. I do not find a definite clinical deficit to correlate with that imaging finding. I think this is incidental and not responsible for her recent encephalopathy. 3. I do not have any new suggestion from neurologic standpoint. I hope she will continue to improve, be discharged soon, and be in touch with her treating neurologist in [place] at that point. Thanks for asking me to see Ms. Birmingham here. cc: Nilam Alvarez III, MD
--- NOTE | 2017-03-05 10:47 | PROGRESS NOTE ---
DATE: 03/05/2017 SUBJECTIVE: This patient is alert and oriented x3 today. She is moving all 4 extremities. She does not have any specific complaints. Vital signs are stable, blood pressure is a little bit high, though. I will restart her home medications of lisinopril and amlodipine. She is already on carvedilol, and I will transfer this patient to the medical floor. OBJECTIVE: Temperature is 98.4, pulse 67, respiratory rate on the monitor is 18, blood pressure on the monitor is 161/58, oxygen saturation is 96% on 3 L nasal cannula. HEENT: Head is atraumatic and normocephalic. PERRLA. Neck: Supple. No JVD. Normal central trachea. Chest: Clear to auscultation. No wheezing, no rales. Cardiovascular: Regular rate and rhythm. Abdomen: Soft, nontender, nondistended. No hepatosplenomegaly. Extremities: No edema, no clubbing, no cyanosis. Neurologic: The patient is alert and oriented x3. No focal neurological deficits. DIAGNOSTIC DATA: WBC is 8.9, hemoglobin 11.3, hematocrit 34.1, platelets 143. Sodium is 139, potassium 3.8, chloride 101, bicarbonate 26, BUN is 9, creatinine 0.6, glucose 127, calcium 8.3. ASSESSMENT AND PLAN: 1. Toxic encephalopathy, resolved. This is likely related to multiple medications. She is completely alert and oriented x3. No focal deficits. Neurology Department is following this patient. I will transfer this patient to the medical floor. 2. Likely tiny recent lacunar infarct around 3.7 mm area of abnormal signal in the left parietal lobe, this is likely secondary to her high blood pressure that apparently has been uncontrolled for the past month. As per her daughter, her blood pressure sometimes runs around 220 and 120. I have restarted her blood pressure medications today. 3. History of coronary artery disease. Aware. Continue with home medications. 4. Multiple sclerosis. Aware. 5. Leukocytosis. This is better. No signs of infection at this moment. 6. DVT prophylaxis. Continue with heparin. 7. Hypertension. I will restart her home medications. 8. Diabetes. I would put this patient on Lantus and sliding scale insulin. 9. Physical deconditioning. I will ask for Physical Therapy. Critical care time was 35 minutes. cc: Neymar Livingston MD
[2017-03-05] MEDS: PRINIVIL PO SCH (10:57)
[2017-03-05] MEDS: NORVASC PO SCH (10:57)
[2017-03-05] MEDS: HEPARIN SUBQ SCH ×3 (10:58→23:36)
[2017-03-05] MEDS: LANTUS SUBQ SCH (10:58)
[2017-03-05] MEDS: HUMULIN R SUBQ SCH ×3 (10:59→21:11)
[2017-03-05] MEDS ORDERED: HUMULIN R SUBQ SCH (11:00)
[2017-03-05] MEDS ORDERED: ALLEGRA D PO SCH (21:00)
[2017-03-05] MEDS: LIPITOR PO SCH (21:10)
[2017-03-05] MEDS: DILANTIN PO SCH (21:11)
[2017-03-06] MEDS: HUMULIN R SUBQ SCH ×2 (05:59→11:18)
[2017-03-06] MEDS: PRILOSEC PO SCH (06:00)
[2017-03-06 06:58] LABS: AGAP 14; BUN 13 mg/dL (8-22); CHLORIDE 99 mmol/L (98-107); COSMO 281; POTASSIUM 3.8 mmol/L (3.5-5.1); SODIUM 139 mmol/L (136-145); TCO2 26 mmol/L (25-35)
[2017-03-06 08:36] VITALS: BP 194/70
[2017-03-06] MEDS: PRINIVIL PO SCH (09:24)
[2017-03-06] MEDS: COREG PO SCH (09:25)
[2017-03-06] MEDS: NORVASC PO SCH (09:25)
[2017-03-06] MEDS: ASPIRIN PO SCH (09:25)
[2017-03-06] MEDS: LANTUS SUBQ SCH ×2 (09:26→11:12)
[2017-03-06] MEDS: KLONOPIN PO SCH (09:29)
[2017-03-06] MEDS: LYRICA PO SCH (09:29)
[2017-03-06] MEDS: HEPARIN SUBQ SCH (11:12)
[2017-03-06] MEDS ORDERED: INSULIN PEN NEEDLES ONE (11:57)
--- NOTE | 2017-03-07 06:20 | DISCHARGE SUMMARY ---
ADMISSION DATE: 03/03/2017 DISCHARGE DATE: 03/06/2017 DISCHARGE DIAGNOSES: 1. Global/toxic encephalopathy, resolved. 2. Likely tiny recent lacunar infarct, around 3.7 cm area, of abnormal signal, in the left parietal lobe. 3. History of coronary artery disease. 4. Hypertension. 5. Leukocytosis, resolved. 6. Diabetes. HOSPITAL COURSE: A 61-year-old female with a past medical history of multiple sclerosis, coronary artery disease, hypertension, hyperlipidemia, type 2 diabetes, sleep apnea, GERD. She called her daughter the day before admission stating that she was in excruciating pain and numbness in the right lower extremity at 5 a.m. She eventually was seen at [facility], where they did a CT scan and ruled out stroke. They assumed this was a flareup of multiple sclerosis. She then went home about 8:30 a.m., and because the pain was getting worse, the daughter called the neurologist in [place], who scheduled an appointment to see her in the office in a couple days. When the daughter went to her house to visit her mom, she found her on the floor, altered and drowsy. She called EMS to bring her in. Upon arrival to the ER, she was very obtunded, and they thought she may have overdosed on tramadol. She was given Narcan, and about 30 minutes later, she had a tonic-clonic seizure. She became very restless, and she was given some Ativan, which calmed her down. This patient was transferred to the ICU. Neurology Department evaluated this patient. We treated this patient with supportive measures, and also we treated her diabetes and hypertension. The patient was improving on a daily basis. She was not complaining of any pain or shortness of breath, or any specific problem. She was evaluated by Neurology Department, who agreed with supportive treatment. Today, this patient was completely fine, no more complaints, tolerating p.o. and ambulating. This is why we decided to discharge this patient with strict followup by her neurologist and primary care doctor. PHYSICAL EXAMINATION: Vital Signs: Temperature 98 degrees, pulse 65, respiratory rate 18, blood pressure 157/54, oxygen saturation 95 on room air. HEENT: Head normocephalic. No trauma. PERRLA. Neck: Supple. No JVD. No masses. Central trachea. Chest: Clear to auscultation. No wheezing. No rales. Abdomen: Soft, nontender, nondistended. No hepatosplenomegaly. Extremities: No edema. No clubbing. No cyanosis. Neurological: The patient was alert and oriented x3. No focal deficits. LABORATORY STUDIES: Sodium 139, potassium 3.8, chloride 99, bicarbonate 26, BUN 13, creatinine 0.5, glucose 154. Calcium 9. DISCHARGE MEDICATIONS: Amlodipine 10 mg p.o. daily, atorvastatin 40 mg p.o. at bedtime, lisinopril 20 mg p.o. daily, insulin Lantus 25 units subcu every morning, sertraline 50 mg p.o. daily, aspirin 325 mg p.o. daily, levothyroxine 25 mcg p.o. daily, Lyrica 300 mg p.o. twice a day, carvedilol 25 mg p.o. twice a day, phenytoin 300 mg at bedtime p.o., clonidine 0.1 mg p.o. daily p.r.n. as needed, Boniva 150 mg p.o. every 30 days, glatiramer 40 mg subcutaneously as directed, clonazepam 0.5 mg p.o. twice a day as needed, tramadol 50 mg p.o. q.6 hours as needed. This patient has been told not to take more than 1 every 6 hours. TIME SPENT: Time discharging this patient: 35 minutes. cc: Neymar Livingston MD
== END 2017-03-06 12:12 | disposition home or self-care (01) ==
LOC: SUATTDRO 20:30 → ICU 20:30 → 4N 03-05 13:11
PROVIDERS: ATTEND Internal Medicine

== ENCOUNTER 2018-10-06 07:05 | Inpatient (IN) ==
[2018-10-06] MEDS ORDERED: NS 1,000 ML IV ONE ×2 (07:46→10:00)
--- NOTE | 2018-10-06 07:50 | PROVIDER DOCUMENTATION ---
HPI-General Adult - General Chief Complaint: Altered Mental Status Stated Complaint: syncope Time Seen by Provider: 10/06/18 07:35 Source: family Allergies/Adverse Reactions: Patient Allergies Allergy/AdvReac Type Severity Reaction Status Date / Time No Known Allergies Allergy Verified 01/18/18 14:45 Home Medications: Home Medication List Medication Instructions Recorded Confirmed Last Taken Type Aspirin [Aspirin EC] 81 mg PO DAILY 10/06/18 10/06/18 10/05/18 History Atorvastatin Calcium [Lipitor] 40 mg PO DAILY 10/06/18 10/06/18 10/05/18 History Calcium Carbonate/Vitamin D3 1 ea PO BID 10/06/18 10/06/18 10/05/18 History [Calcium 500 + Vit D Caplet] Carvedilol 25 mg PO BID 10/06/18 10/06/18 10/05/18 History Clonazepam 0.5 mg PO DAILY 10/06/18 10/06/18 10/05/18 History Fenofibrate Nanocrystallized 160 mg PO DAILY 10/06/18 10/06/18 10/05/18 History [Fenofibrate] Furosemide 40 mg PO DAILY 10/06/18 10/06/18 10/05/18 History Hydralazine HCl 100 mg PO TID 10/06/18 10/06/18 10/05/18 History Isosorbide Mononitrate E.r. [Imdur] 60 mg PO DAILY 10/06/18 10/06/18 10/05/18 History Leflunomide 20 mg PO DAILY 10/06/18 10/06/18 10/05/18 History Lisinopril 20 mg PO DAILY 10/06/18 10/06/18 10/05/18 History Magnesium 250 mg PO BID 10/06/18 10/06/18 10/05/18 History Nortriptyline HCl [Pamelor] 75 mg PO DAILY 10/06/18 10/06/18 10/05/18 History [place]-3 Acid Ethyl Esters [Lovaza] 2 cap PO BID 10/06/18 10/06/18 10/05/18 H istory Phenytoin Sodium Extended 300 mg PO DAILY 10/06/18 10/06/18 10/05/18 History [Dilantin] Pramipexole [Mirapex] 0.5 mg PO QHS 10/06/18 10/06/18 10/05/18 History Pregabalin [Lyrica] 1 cap PO TID 10/06/18 10/06/18 10/05/18 History Sertraline [Zoloft] 50 mg PO DAILY 10/06/18 10/06/18 10/05/18 History Spironolactone 25 mg PO DAILY 10/06/18 10/06/18 10/05/18 History Ticagrelor [Brilinta] 90 mg PO BID 10/06/18 10/06/18 10/05/18 History - History of Present Illness -Gen Adult Nature of Presenting Problems: Pt accidently took another dose of muscle relaxant a few days ago, this cleared from her system and she returned back to her baseline, found on floor near bed 24 four hours ago, fall not witnessed; she had not been her normal self half a day prior to this. She is not ambulating, eating or drinking since yesterday morning, she is complaining of pain in her vagina, no bleeding reported, no fever. No known accidental overdose again. PMH MS dx 4 years ago DM very high cholesterol [place] 8 stents CABG 3V AO repair Location of Pain/Injury: reports: none Quality of Pain: reports: aching Severity: reports: mild Onset/Duration: reports: unsure Timing: reports: still present Review of Systems - Adult - REVIEW OF SYSTEMS - ADULT Constitutional: reports: fatique. denies: fever, night sweats, weight gain, weight loss Eyes: reports: no symptoms reported. denies: discharge Ears, Nose, Mouth & Throat: reports: no symptoms reported. denies: ear discharge Cardiovascular: reports: no symptoms reported. denies: chest pain, palpitations Respiratory: reports: no symptoms reported. denies: chronic cough, shortness of breath Gastrointestinal: reports: diarrhea. denies: difficulty swallowing, rectal bleeding, vomiting Genitourinary: reports: other (vaginal pain) Musculoskeletal: reports: no symptoms reported Integumentary: reports: no symptoms reported Neurological: reports: other (decreased interaction, weak) Psychiatric: reports: no symptoms reported Endocrine: reports: no symptoms reported Hematologic/Lymphatic: reports: no symptoms reported Allergic/Immunologic: reports: no symptoms reported All Other Systems: Reviewed and Negative Past History - Adult - PAST MEDICAL HISTORY-ADULT Review of Records: reports: Nursing Assessment Review, Medications Reviewed Major Childhood Illnesses: reports: denies history Cardiovascular: reports: cardiac disease, CAD, HTN, hyperlipidemia, DE Respiratory: reports: denies history Gastrointestinal: reports: denies history Obstetrical/Gynecological: reports: denies history Genitourinary: reports: kidney disease Musculoskeletal: reports: other (carpal tunnel) Neurological: reports: Multiple Sclerosis, Seizures/Epilepsy Endocrine/Immune: reports: Diabetes, thyroid disorder Other Conditions: reports: denies history - PRIOR SURGERIES/PROCEDURES Surgical/Procedure History: reports: CABG, hysterectomy, other (AAA repair, u lnar nerve release bilat UE) - IMMUNIZATION STATUS Childhood Immunizations: See Nurse Assessment Flu Vaccine: See Nurse Assessment - FAMILY HISTORY Family History: reviewed, not pertinent Physical Exam-General - PHYSICAL EXAM-ADULT Initial Vital Signs Reviewed: Yes - CONSTITUTIONAL General Appearance: alert, mild distress (moaning, between moaning, difficult to keep her attention to answer questions which she does with yes and no), other (pale) - EYES Eyes: pink conjunctivae. negative: meningismus, pale conjunctivae, photophobia, sclera injected, scleral icterus, subconjunctival hemorrhage - HEAD, EARS, NOSE, MOUTH & THROAT HENMT: other (dry mucus membranesl; PERRL) - NECK Neck: non-tender, supple - RESPIRATORY Respiratory: chest non-tender, lungs clear, normal breath sounds, no pleuratic chest pain, no respiratory distress, no accessory muscle use - CARDIOVASCULAR Cardiovascular: normal peripheral pulses, regular rate, rhythm, no edema, no murmur - GASTROINTESTINAL (ABDOMEN) Abdominal Exam: non tender, soft, other (diminished bowel sounds diffusley) - LYMPHATIC Lymphatic: no adenopathy - MUSCULOSKELETAL Extremity: normal range of motion, non-tender, normal inspection. negative: normal gait - SKIN Integumentary: normal turgor, warm/dry - NEUROLOGIC Neurologic: grossly normal, no motor/sensory deficits - PSYCHIATRIC Psych/Mental Status: normal mood/affect, normal thought content, other (Slow to answer yes and no and slow to tell me her name; Sultana 13) Progress - PLAN OF CARE/RESULTS Progress/Plan/Lab Results: Vital Signs - 8 hr 10/06/18 07:11 10/06/18 07:20 Temperature 97.9 F Pulse Rate 57 L 57 L Respiratory Rate 20 14 Blood Pressure 206/78 180/90 O2 Sat by Pulse Oximetry 98 98 Orders Category Date Time Status CBC WITH ELECTRONIC DIFF [HEME] Stat Lab 10/06/18 07:28 Ordered CK PROFILE [SP CHEM] Stat Lab 10/06/18 07:28 Ordered COMPREHENSIVE METABOLIC PANEL [CHEM] Stat Lab 10/06/18 07:28 Ordered TROPONIN T Stat Lab 10/06/18 07:28 Ordered CP/SOB/Palp >45 yrs of Age Stat Oth 10/06/18 07:12 Ordered EKG [EKG] Stat Ther 10/06/18 07:13 Ordered Wide differential not limited to post DE (EKG no stemi now), MS flare, AO problem, UTI, pneumonia, constipation Had on Depends opened for u cath, no blood in Depends or vaginal are Per chest xray worsening ill defined infiltrate in lingula, will start Rocephin and give Azithromycin by IV as pt po ability/safety may be limited at this time, WBC wnl but immature a bit elevated, lactate and trop wnl CK 314 likely reflects being in bed for 24 hours without leaving it, BUN/cr 56/1.8 last cr 1.67 with much lower BUN, dehydration, due to the fall rec to daughter head CT and CT cspine and would consider IV chest and abdomen CT if creatinine was not too high due to AO surgical history and vaginal pain (referred?), but creatinine elevated, will d/w hospitalist when CT results of head and cspine are done d/w daughter results and need to admit, she agreed 0951 d.w [place] HPI exam PMH results treatment, agreed to admit, will see pt in ED Result Diagrams: 10/06/18 08:00 10/06/18 08:00 - EKG 1 Time of EKG reading by physician:: 08:10 EKG Read and Signed by:: Jennifer Conde EKG Interpretation (*Must complete 3 of following elements*): Abnormal Rate: 63 Rhythm: NSR with PVCs [place]: normal QRS: normal [place] Interval: normal ST Wave: normal Departure - Departure Date of Disposition Decision: 10/06/18 Time of Disposition Decision: 10:01 DIAGNOSIS: Dehydration Altered mental status Qualifiers: Altered mental status type: unspecified Qualified Code(s): R41.82 - Altered mental status, unspecified Pneumonia Qualifiers: Laterality: left Lung location: unspecified part of lung Disposition: ADMITTED INPATIENT 09 Certified Medical Emergency: Emergent Condition: Good Referrals and Follow-Ups: Gumaro Person MD [Primary Care Provider] - - Critical Care Note This patient required my direct & personal management of CC.: No Attestation - Physician/ JHONATHAN Attestation The physician spent face to face time with patient:: Yes Advanced Practice Provider documentation review:: Supervising physician onsite and consulted in the evaluation and care of this patient. The physician did have a face to face encounter with the patient.
[2018-10-06 08:05] LABS: BASO# 0.03 X1000 (0.0-0.2); BASO% 0.4 % (0.0-0.8); EOS# 0.16 X1000 (0.0-0.7); EOS% 1.9 % (0.0-10.0); HEMATOCRIT 32.6 % (37.0-47.0); HEMOGLOBIN 10.5 g/dL (12.0-16.0); IMM GRAN# 0.05 X1000 (0.0-0.04); IMM GRAN% 0.6 % (0.0-0.5); LYMPH# 1.72 X1000 (1.2-3.4); LYMPH% 20.2 % (20.5-51.1); MCH 30.8 PG (27-31); MCHC 32.2 g/dL (33-37); MCV 95.6 FL (81-99); MONO# 0.46 X1000 (0.11-0.59); MONO% 5.4 % (1.7-9.3); MPV 11.8 FL (7.4-10.4); NEUT# 6.09 X1000 (1.4-6.5); NEUT% 71.5 % (42.2-75.2); PLT 149 X1000 (130-400); RBC 3.41 XMIL (4.2-5.4); RDW 13.7 % (11.5-14.5); WBC 8.51 X1000 (4.8-10.8)
--- NOTE | 2018-10-06 08:11 | Diag Imaging Result Doc PS360 ---
CHEST-PORTABLE - 10/06/2018 INDICATION: cough COMPARISON: 11/16/2017 FINDINGS: Stable sternotomy wires. There is some worsening ill-defined infiltrate in the lingula. Heart size and pulmonary vascularity are top normal. No pneumothorax or pleural effusion. IMPRESSION: Worsening ill-defined infiltrate in the lingula. Electronically signed by Randal Tao 10/06/2018 8:09 AM
[2018-10-06 08:17] LABS: BILIRUBIN URINE NEGATIVE (NEGATIVE); BLOOD URINE NEGATIVE (NEGATIVE); CLARITY CLEAR (CLEAR); COLOR YELLOW; GLUCOSE URINE NEGATIVE (NEGATIVE); KETONE URINE NEGATIVE (NEGATIVE); LEUKOCYTES URINE NEGATIVE (NEGATIVE); NITRITE URINE NEGATIVE (NEGATIVE); PH URINE 6.5; PROTEIN URINE NEGATIVE (NEGATIVE); SP GRAVITY URINE 1.015; UROBILINOGEN URINE NORMAL
[2018-10-06 08:19] LABS: URINE RBC <10 /HPF (<10); URINE SOURCE CATH
[2018-10-06 08:20] LABS: INR 1.05; PROTIME 14.2 Seconds (11.0-16.0)
[2018-10-06 08:23] LABS: AGAP 13; ALBUMIN 4.5 g/dL (3.5-5.0); ALKALINE PHOSPHATASE 23 U/L (32-104); BUN 56 mg/dL (8-22); CALCIUM 9.4 mg/dL (8.8-10.2); CHLORIDE 108 mmol/L (98-107); CK PROFILE 314 U/L (24-173); COSMO 308; CREATININE 1.8 mg/dL (0.5-0.9); ESTIMATED GFR 28; GLUCOSE 131 mg/dL (70-104); GOT 19 U/L (10-30); GPT 18 U/L (10-36); POTASSIUM 4.6 mmol/L (3.5-5.1); SODIUM 146 mmol/L (136-145); TCO2 25 mmol/L (25-35); TOTAL BILIRUBIN < 0.15 mg/dL (0.20-1.00); TOTAL PROTEIN 7.3 g/dL (6.3-8.3)
[2018-10-06] MEDS ORDERED: ROCEPHIN IM ONE (08:29)
[2018-10-06] MEDS ORDERED: XYLOCAINE-MPF 1% INJ ONE (08:29)
[2018-10-06] MEDS ORDERED: ZITHROMAX 500 MG/NS 500 MG/250 ML IVPB IV ONE (08:29)
[2018-10-06 08:30] LABS: UR AMPHETAMINES QUAL NONE DETECTED (NONE DETECT); UR BARBITUATES QUAL PRESUMPTIVE POSITIVE (NONE DETECT); UR BENZODIAZEPIN QUAL NONE DETECTED (NONE DETECT); UR COCAINE QUAL NONE DETECTED (NONE DETECT); UR METHADONE QUAL NONE DETECTED (NONE DETECT); UR METHAMPHETAMINE QUAL NONE DETECTED (NONE DETECT); UR OPIATES QUAL NONE DETECTED (NONE DETECT); UR OXYCODONE QUAL NONE DETECTED (NONE DETECT); UR PCP QUAL NONE DETECTED (NONE DETECT); UR PROPOXYPHENE QUAL NONE DETECTED (NONE DETECT); UR TCA QUAL PRESUMPTIVE POSITIVE (NONE DETECT)
[2018-10-06 08:31] LABS: UR CANNABINOIDS QUAL NONE DETECTED (NONE DETECT)
[2018-10-06 08:40] LABS: CK INDEX 1.1 (0.0-2.5); CK-MB 3.56 ng/mL (0.0-5.0)
--- NOTE | 2018-10-06 09:02 | Diag Imaging Result Doc PS360 ---
EXAM : CT HEAD/C-SPINE W/O CONTRAST HISTORY: head injury/pain TECHNIQUE: 1. CT head without contrast 2. CT cervical spine without contrast COMPARISON: Head compared to 07/02/2016 FINDINGS: Head: No parenchymal hemorrhage. No epidural or subdural hematoma. No subarachnoid hemorrhage. Old lacunar infarct near the frontal horn of the left internal capsule. This was not present on the prior study. No mass identified on this noncontrasted exam. No hydrocephalus. No skull fracture. Cervical spine: Mild scoliosis. No precervical soft tissue swelling. No subluxation. No fracture. IMPRESSION: Head: No hemorrhage. No injury. Cervical spine: No acute fracture. This exam was performed using automated exposure control, adjustment of mA or kV according to patient size, and/or use of iterative reconstruction technique. Electronically signed by Shant Marina 10/06/2018 8:59 AM
--- NOTE | 2018-10-06 09:05 | ED EKG INTERP ---
This chart was entered by La Raines Scribe, acting as scribe for Jennifer Conde MD. EKG Interpretation - EKG Time of EKG reading by physician:: 08:10 EKG Read and Signed by:: Jennifer Conde EKG Interpretation (*Must complete 3 of following elements*): Abnormal Rate: 63 Rhythm: sinus rhythm with occ pvc [place]: normal QRS: PVC's [place] Interval: normal ST Wave: normal Attestation - Physician/ JHONATHAN Attestation Patient care was provided by Advanced Practice Provider:: No The physician spent face to face time with patient:: Yes Advanced Practice Provider documentation review:: Supervising physician onsite and consulted in the evaluation and care of this patient. The physician did have a face to face encounter with the patient. This chart was documented by the indicated scribe, (La Raines Scribe) and accurately reflects the services I performed and decisions made by me, Jennifer Conde MD, as attested by the provider's signature.
--- NOTE | 2018-10-06 09:14 | EKG Report ---
Test Performed on : 10/06/2018 08:09:11 AM Test Reason : syncope Blood Pressure : / mmHG Vent. Rate : 063 BPM Atrial Rate : 063 BPM P-R Int : 178 ms QRS Dur : 094 ms QT Int : 446 ms P-R-T Axes : 057 015 077 degrees QTc Int : 456 ms Sinus rhythm. with occasional premature ventricular complexes. Cannot rule out Inferior infarct (cited on or before 25-JAN-2018) Abnormal ECG When compared with ECG of 06-OCT-2018 08:08, (Unconfirmed) premature ventricular complexes. are now present Unconfirmed Result
[2018-10-06] MEDS ORDERED: ZOFRAN IV PRN (10:39)
--- NOTE | 2018-10-06 13:33 | HISTORY AND PHYSICAL ---
CHIEF COMPLAINT: Altered mental status. HISTORY OF PRESENT ILLNESS: This is a 63-year-old female with a history of coronary artery disease, hypertension, diabetes mellitus. She presents to the emergency room with her daughter. The patient is altered. She mumbles. Occasionally she will answer with a yes or no question, so history is taken from the daughter as well as the chart. The daughter states that the patient was at an outlying facility Wednesday night for an accidental overdose of her medications. She stated that once that got out of her system, she was back to her normal self. The daughter states she has had work this week, so she had family members coming in and checking on the patient and she was found on the floor about 24 hours ago by a family member. She did not remember falling. She denied any specific pain. There is no visible injury. The daughter states that she has not walked, eaten or drank anything since yesterday morning. It is unsure if she took extra medications. PAST MEDICAL HISTORY: 1. Multiple sclerosis. 2. Hypertension. 3. Anxiety. 4. Coronary artery disease status post stents. 5. Coronary artery bypass grafting and subsequent PCI. 6. Hyperlipidemia. 7. Severe hypertriglyceridemia. 8. Diabetes mellitus type 2. 9. Hypothyroid. 10. Anemia. 11. Gastroparesis. 12. Gastroesophageal reflux disease. 13. PVD. PAST SURGICAL HISTORY: 1. Coronary artery bypass graft. 2. AAA repair. 3. Bilateral upper extremity ulnar nerve release. 4. Hysterectomy. 5. Cardiac stents x4, on Brilinta. 6. Left hip repair. SOCIAL HISTORY: They deny alcohol, tobacco, or illicit drug use. ALLERGIES: No known drug allergies. HOME MEDICATIONS: A list will be obtained by the nursing staff and once verified, will review and order as is appropriate. REVIEW OF SYSTEMS: Unable to obtain from the patient. At the time of my exam, the patient just moans. PHYSICAL EXAMINATION: GENERAL: This is a 63-year-old female who is lying in the bed in no distress. VITAL SIGNS: Blood pressure is 159/66 with a heart rate of 69, respirations are 20, temperature is 97.4 degrees with room air saturation 98%. EYES: Pupils are equal, round, react to light. EOMs are intact. She has pale conjunctivae. HEENT: Head is normocephalic, atraumatic. Mucous membranes are dry. NECK: Supple with trachea midline. She has no JVD. CARDIOVASCULAR: Regular rate and rhythm. S1 and S2 appreciated. Peripheral pulses are palpable x4 extremities. No murmur noted. PULMONARY: Breath sounds are clear. They are decreased in the bases. Chest rise and fall symmetric with respiration. Chest wall is nontender to palpation. GASTROINTESTINAL: Abdomen is soft, nondistended, nontender with decreased bowel sounds throughout. NEUROLOGIC: She does not follow commands. She does withdraw to pain. She will mumble yes or no occasionally, but this is not necessarily related to questions asked. LABORATORY DATA: WBC is 8.5 with hemoglobin 10.5, hematocrit 32.6, and platelets of 149,000. Sodium is 146, potassium 4.6, BUN 56, creatinine 1.8 with a glucose of 131. CPK is 314. Urinalysis is essentially negative. Urine drug screen is presumptive positive for barbiturates and tricyclics. IMAGIN. Chest x-ray reveals worsening ill-defined infiltrate in the lingula. 2. CT of the head and cervical spine reveal mild scoliosis, no precervical soft tissue swelling, no subluxation, no fracture, head with no hemorrhage, no injury. ASSESSMENT AND PLAN: 1. Altered mental status. Causes are multifactorial. The patient did overdose on Wednesday. She does have some pneumonia on the chest x-ray. There could be a component of aspiration. She is dehydrated. She does have polypharmacy with a history of overtaking her medications. She will be placed in ICU with neuro checks and close monitoring. 2. Pneumonia, left lung. We will obtain blood cultures. We will start her on Rocephin and azithromycin. We will add clindamycin in the chance that there is aspiration, and we will follow. We will give supplemental oxygen as needed. 3. Diabetes mellitus. She will be placed on patterned blood glucose with sliding scale insulin. 4. Acute kidney injury. This is very likely secondary to dehydration. We will rehydrate, renal dose any medications and trend labs. 5. History of coronary artery disease status post coronary artery bypass graft with subsequent PCI. She will be placed on telemetry. Will continue medications as is appropriate. 6. Hypothyroid. We will check a TSH and continue medications as appropriate. 7. Gastroesophageal reflux disease with Protonix q.12 hours. 8. Severe hypertriglyceridemia. Aware. 9. Deep venous thrombosis prophylaxis. We will use sequential compression devices. We will not give any anticoagulants as we are unsure of any injuries or exactly the component of her fall. 10. Gastrointestinal prophylaxis. Protonix. We will check a CBC with differential, CMP, and a total CK in the morning. Further treatments pending hospital course. Dictated by BEHZAD Espitia for Bo Lock MD This chart was documented by, BEHZAD Espitia and accurately reflects the services performed, treatment plan and medical decisions as attested by the providers signature Bo Lock MD. cc: BEHZAD Espitia MD
--- NOTE | 2018-10-06 13:40 | EKG Report ---
Test Performed on : 10/06/2018 1:36:26 PM Test Reason : PVCS Blood Pressure : / mmHG Vent. Rate : 091 BPM Atrial Rate : 065 BPM P-R Int : 190 ms QRS Dur : 092 ms QT Int : 384 ms P-R-T Axes : 075 024 054 degrees QTc Int : 472 ms Sinus rhythm. with marked sinus arrhythmia. with occasional premature ventricular complexes. ST & T wave abnormality, consider inferolateral ischemia Prolonged QT Abnormal ECG No previous ECGs available Unconfirmed Result
[2018-10-06] MEDS: ZITHROMAX 500 MG/NS 500 MG/250 ML IVPB IV SCH (15:41)
[2018-10-06 15:43] LABS: CK INDEX 1.6 (0.0-2.5); CK-MB 4.71 ng/mL (0.0-5.0)
[2018-10-06] MEDS: PROTONIX IV SCH ×2 (15:58→22:18)
[2018-10-06] MEDS: NS 1,000 ML IV SCH (15:59)
[2018-10-06] MEDS: ROCEPHIN 1 GM in NS 50 ML IV SCH (16:03)
[2018-10-06] MEDS: HUMALOG (PARKWAY) SUBQ SCH ×3 (16:32→20:00)
[2018-10-06] MEDS: CLINDAMYCIN 900 MG/D5W 900 MG/50 ML IVPB IV SCH ×2 (16:32→22:18)
--- NOTE | 2018-10-06 18:03 | CARDIOLOGY CONSULTATION ---
DATE: 10/06/2018 CHIEF COMPLAINT ON PRESENTATION: Altered mental status, drowsy. HISTORY OF PRESENT ILLNESS: Ms. Birmingham is a 63-year-old female with a history of coronary disease, normally followed by Dr. Sawyer, last visit September 22 of this year. She was in her usual state of health until just a few days ago when she mistakenly took extra medication. She lives with her daughter and her daughter told her that in a few days she would be out of some medications and she mistook what she had said and accidentally took an extra dose of another medication. She was somewhat drowsy. They brought her to the ER and she was evaluated and sent home. Over the next day or 2. She was a little bit more drowsy. The daughter had family members come in and check on her. Yesterday while the daughter was at work she had, I believe, a brother or a nephew come see her and they actually found her on the floor. The patient is not aware of how she got there. She is a somewhat poor historian. She cannot think of any pain complaints presently; she just say she does not feel good. The daughter woke up today and went to see how her mother was doing. Her mother would not wake up and she subsequently brought her into the ER for further evaluation. The patient cannot endorse any fevers. The daughter reports she has not been eating or drinking very well recently. She has maintained compliance with all of her medications. PAST MEDICAL HISTORY: 1. Coronary disease. Last cardiac catheterization was September 09, 2018. Left main had a widely patent stent. The LAD was a medium-sized vessel diffusely diseased to around 40%. The LAD was occluded in the mid segment. It was seen filling through the COL[place]N to the LAD that was widely patent with no significant disease. The circumflex had a small first obtuse marginal that had a focal 60 to 70% lesion. There was a vein graft to the marginal that has a critical 99% anastomotic stenosis. The previously placed stents in the vessel were widely patent. This anastomotic lesion was treated with a drug-eluting stent. The RCA was dominant and known to be occluded. Vein graft to the RCA was known to be occluded. The patient also had a cardiac catheterization in June of 2018 and had angioplasty/drug-eluting stent to the proximal mid saphenous vein graft to the first diagonal. She had a catheterization in January of 2018 with an eccentric 90% stenosis in a vein graft to an obtuse marginal, treated with a drug- eluting stent. 2. Ischemic cardiomyopathy. Most recent ejection fraction based on echo in August was 30 to 35% with severe hypokinesis of the basal inferior septal wall, basal inferior wall, mid inferior septal wall, and mid inferior wall. 3. SVT. 4. Hypertension. 5. Hyperlipidemia. 6. Severe hypertriglyceridemia with triglycerides greater than 4,000. She [place] a clinic [place] [facility] [place]. 7. Diabetes. 8. Abdominal aortic aneurysm. 9. CKD. 10. Carotid vascular disease. 11. Multiple sclerosis. 12. Reflux disease. 13. Seizure disorder. 14. Sleep apnea. SOCIAL HISTORY: She denies any alcohol, tobacco, or illicit drugs. She lives with her daughter. FAMILY HISTORY: Hypertension. REVIEW OF SYSTEMS: A 10 system review of systems is negative except for those things mentioned in HPI. PHYSICAL EXAMINATION: Vital signs: She is afebrile. Heart rate is in the 50s to 60s. Blood pressure 196/78. General: No acute distress. HEENT: Oropharynx moist. Poor dentition. Eye examination shows pink conjunctivae, white sclerae. Neck: No obvious thyromegaly or thyroid tenderness. Cardiovascular: She is a irregular rate and rhythm. She is in sinus with PVCs in a bigeminal pattern. She has no lower extremity edema. Chest: Clear bilaterally. She has no increased work of breathing. Abdomen: Soft, nontender, nondistended. She has no obvious organomegaly. Skin: Warm and dry throughout without any rashes. Neurological: Moving all extremities well. She has no lateralizing deficits. Psychiatric: She seems alert. She is somewhat tearful. She is able to answer all questions. PERTINENT DATA: She had an EKG performed at 1336 today that shows sinus rhythm. She has PVCs that are in a bigeminal to trigeminal pattern. EKG at 8:09 this morning, sinus rhythm with a single PVC identified. No ischemic changes. Laboratory data shows a white count 8.5, hematocrit 32, platelet count is 149,000. Sodium 146, potassium 4.6, BUN 56, creatinine is 1.8, magnesium 2.9, albumin 4.5. Cardiac enzymes were negative thus far. TSH 4.34 on the 25 of January. UA is unremarkable. She did have a UDS positive for barbiturates and tricyclics which is consistent with her medications. ASSESSMENT: Ms. Birmingham is a 63-year-old female with a history of coronary disease with multiple recent stents. PLAN: At this point, I agree with fluid resuscitation. Chest x-ray demonstrated a possible infiltrate in the lingula. She is on antibiotics. Her electrolytes are abnormal in the form of her creatinine, sodium, and magnesium. Hopefully with correction of these we will see improvement in her bigeminy. I have restarted her medications in the form of her Coreg, Imdur, Brilinta, and aspirin. We will check an echo as well. cc: Delvis Michael MD
[2018-10-06] MEDS: COREG PO SCH (19:59)
[2018-10-06] MEDS: ATIVAN PO PRN (19:59)
[2018-10-06] MEDS: LIPITOR PO SCH (19:59)
[2018-10-06] MEDS: BRILINTA PO SCH (19:59)
[2018-10-06] MEDS ORDERED: FISH OIL CONCENTRATE PO SCH (21:00)
[2018-10-06] MEDS: SODIUM CHLORIDE 0.9% INJ SCH (22:18)
[2018-10-07] MEDS: NS 1,000 ML IV SCH ×2 (03:41→17:22)
[2018-10-07 06:10] LABS: BASO# 0.02 X1000 (0.0-0.2); BASO% 0.2 % (0.0-0.8); EOS# 0.14 X1000 (0.0-0.7); EOS% 1.3 % (0.0-10.0); HEMATOCRIT 31.7 % (37.0-47.0); HEMOGLOBIN 10.2 g/dL (12.0-16.0); IMM GRAN# 0.03 X1000 (0.0-0.04); IMM GRAN% 0.3 % (0.0-0.5); LYMPH# 1.52 X1000 (1.2-3.4); LYMPH% 14.6 % (20.5-51.1); MCH 30.7 PG (27-31); MCHC 32.2 g/dL (33-37); MCV 95.5 FL (81-99); MONO# 0.65 X1000 (0.11-0.59); MONO% 6.2 % (1.7-9.3); MPV 12.3 FL (7.4-10.4); NEUT# 8.05 X1000 (1.4-6.5); NEUT% 77.4 % (42.2-75.2); PLT 162 X1000 (130-400); RBC 3.32 XMIL (4.2-5.4); RDW 13.8 % (11.5-14.5); WBC 10.41 X1000 (4.8-10.8)
[2018-10-07] MEDS: CLINDAMYCIN 900 MG/D5W 900 MG/50 ML IVPB IV SCH ×3 (06:20→22:04)
[2018-10-07 06:35] LABS: CALCIUM 8.2 mg/dL (8.8-10.2); CREATININE 1.3 mg/dL (0.5-0.9); MAGNESIUM 2.4 mg/dL (1.5-2.7); POTASSIUM 4.4 mmol/L (3.5-5.1); TOTAL BILIRUBIN 0.2 mg/dL (0.20-1.00); TOTAL PROTEIN 6.6 g/dL (6.3-8.3)
[2018-10-07] MEDS: HUMALOG (PARKWAY) SUBQ SCH ×4 (06:59→22:05)
[2018-10-07] MEDS: ASPIRIN EC PO SCH (09:56)
[2018-10-07] MEDS: TRICOR PO SCH (09:56)
[2018-10-07] MEDS: COREG PO SCH ×2 (09:56→22:06)
[2018-10-07] MEDS: BRILINTA PO SCH ×2 (09:57→22:05)
[2018-10-07] MEDS: IMDUR PO SCH (09:57)
[2018-10-07] MEDS: FISH OIL CONCENTRATE PO SCH ×2 (10:10→22:06)
[2018-10-07] MEDS: PROTONIX IV SCH ×2 (10:11→22:04)
[2018-10-07] MEDS ORDERED: ARAVA PO SCH (10:45)
[2018-10-07] MEDS: DILANTIN PO SCH (11:05)
[2018-10-07] MEDS: PAMELOR PO SCH (11:29)
[2018-10-07] MEDS: ROCEPHIN 1 GM in NS 50 ML IV SCH (12:30)
[2018-10-07] MEDS: APRESOLINE PO SCH ×2 (13:20→17:22)
--- NOTE | 2018-10-07 13:20 | ECHO REPORT ---
ORDER DATE: 10/07/2018 INDICATION FOR THE STUDY: 1. Acute kidney injury. 2. Bigeminy. 3. Coronary disease. FINDINGS: 1. The right atrium appears normal in size at 3.6 cm. 2. Mild tricuspid regurgitation. RV systolic pressure of 57. 3. Normal RV size and systolic function. 4. Mild pulmonic insufficiency. 5. Mild left atrial enlargement with a volume index of 33. 6. No mitral prolapse. There is mild and possibly moderate mitral regurgitation. This is a somewhat eccentric jet. 7. Normal LV size with an end-diastolic dimension of 5 cm. There is mild left ventricular hypertrophy with a posterior and interventricular septal wall thickness of 1.3 cm each. There is mild reduction in LV systolic function with an estimated EF of 45%. There does appear to be some hypokinesis in the inferior and inferior septum. This area is hyperechoic and thinned out suggesting previous infarct. 8. Aortic valve opens well. Trace insufficiency. It is trileaflet. No evidence of stenosis. 9. Aorta appears normal in visualized segments. 10. No pericardial effusion seen. cc: Delvis Michael MD MTDD
[2018-10-07] MEDS: ZITHROMAX 500 MG/NS 500 MG/250 ML IVPB IV SCH (14:00)
[2018-10-07] MEDS: ARAVA PO SCH (14:05)
[2018-10-07] MEDS ORDERED: MAGNESIUM 250 MG PO SCH (21:00)
[2018-10-07] MEDS: CALTRATE 600 + D PO SCH (22:06)
[2018-10-07] MEDS: MIRAPEX PO SCH (22:06)
[2018-10-07] MEDS: LIPITOR PO SCH (22:06)
--- NOTE | 2018-10-08 01:48 | PROGRESS NOTE ---
DATE: 10/07/2018 SUBJECTIVE: Patient is much more alert. She has actually eaten a little bit today. PHYSICAL EXAMINATION: Vital Signs: Temperature 97.9 degrees, pulse 97, respiratory 18, BP 107/61. General: Patient is awake, alert. She is currently getting an echo. She is in no respiratory distress. HEENT: Normocephalic. Neck: Supple. Cardiovascular: Regular rate. Chest: Decreased due to effort, but no crackles, no wheezing. Abdomen: Soft, nondistended, nontender. Extremities: Moves all extremities. Neurologic: Patient seems to be improving. She is able to tolerate lunch without much difficulty. ASSESSMENT: 1. Hypernatremia. 2. Chronic renal failure. 3. Altered mental status, appears to be getting closer back to her baseline. 4. Pneumonia. 5. Diabetes. 6. Known coronary artery disease. PLAN: We will continue patient in the hospital. Continue to follow her labs. Continue Rocephin, clindamycin. Get Physical Therapy involved. We will await echo results. Further orders. cc: Bo Lock MD
[2018-10-08] MEDS: NS 1,000 ML IV SCH ×2 (05:12→20:55)
[2018-10-08] MEDS: CLINDAMYCIN 900 MG/D5W 900 MG/50 ML IVPB IV SCH ×2 (05:12→13:00)
[2018-10-08 07:24] LABS: BASO# 0.02 X1000 (0.0-0.2); BASO% 0.3 % (0.0-0.8); EOS# 0.05 X1000 (0.0-0.7); EOS% 0.7 % (0.0-10.0); HEMATOCRIT 29.9 % (37.0-47.0); HEMOGLOBIN 9.4 g/dL (12.0-16.0); IMM GRAN# 0.03 X1000 (0.0-0.04); IMM GRAN% 0.4 % (0.0-0.5); LYMPH# 1.32 X1000 (1.2-3.4); LYMPH% 18.6 % (20.5-51.1); MCH 30.8 PG (27-31); MCHC 31.4 g/dL (33-37); MONO# 0.61 X1000 (0.11-0.59); MONO% 8.6 % (1.7-9.3); MPV 12.5 FL (7.4-10.4); NEUT# 5.07 X1000 (1.4-6.5); NEUT% 71.4 % (42.2-75.2); PLT 142 X1000 (130-400); RBC 3.05 XMIL (4.2-5.4); RDW 13.9 % (11.5-14.5)
[2018-10-08 07:33] LABS: ALBUMIN 3.9 g/dL (3.5-5.0); CALCIUM 7.9 mg/dL (8.8-10.2); CREATININE 1.1 mg/dL (0.5-0.9); POTASSIUM 4.6 mmol/L (3.5-5.1); TOTAL BILIRUBIN 0.2 mg/dL (0.20-1.00); TOTAL PROTEIN 6.5 g/dL (6.3-8.3)
[2018-10-08] MEDS: HUMALOG (PARKWAY) SUBQ SCH ×4 (07:45→21:32)
[2018-10-08] MEDS: ASPIRIN EC PO SCH (08:26)
[2018-10-08] MEDS: ZOLOFT PO SCH (08:27)
[2018-10-08] MEDS: APRESOLINE PO SCH ×3 (08:27→16:03)
[2018-10-08] MEDS: CALTRATE 600 + D PO SCH ×2 (08:30→20:56)
[2018-10-08] MEDS: COREG PO SCH ×2 (08:33→20:55)
[2018-10-08] MEDS: PAMELOR PO SCH (08:33)
[2018-10-08] MEDS: IMDUR PO SCH (08:33)
[2018-10-08] MEDS: BRILINTA PO SCH ×2 (08:34→20:56)
[2018-10-08] MEDS: TRICOR PO SCH (08:34)
[2018-10-08] MEDS: DILANTIN PO SCH (08:34)
[2018-10-08] MEDS: LASIX PO SCH (08:34)
[2018-10-08] MEDS: ARAVA PO SCH (08:35)
[2018-10-08] MEDS: FISH OIL CONCENTRATE PO SCH ×2 (08:56→20:55)
[2018-10-08] MEDS: SODIUM CHLORIDE 0.9% INJ SCH (11:05)
[2018-10-08] MEDS: SOLU-MEDROL IV SCH ×2 (11:05→18:26)
[2018-10-08] MEDS: PROTONIX IV SCH (11:05)
[2018-10-08] MEDS: ROCEPHIN 1 GM in NS 50 ML IV SCH (12:49)
[2018-10-08] MEDS: ZITHROMAX 500 MG/NS 500 MG/250 ML IVPB IV SCH (12:50)
[2018-10-08] MEDS: LIPITOR PO SCH (20:56)
[2018-10-08] MEDS: MIRAPEX PO SCH (20:56)
--- NOTE | 2018-10-09 00:36 | PROGRESS NOTE ---
DATE: 10/08/2018 SUBJECTIVE: Patient currently is stable. She is not answering questions nor following commands which is different from yesterday. PHYSICAL EXAMINATION: Vital Signs: Temperature 98.7 degrees, pulse 94, respiratory 18, BP 141/64. General: Patient is in no current respiratory distress. She is lying in bed flatly. She does respond to painful stimuli, but does not answer questions nor does she follows commands. She is lying in bed with her eyes closed in no respiratory distress. HEENT: Normocephalic. Neck: Supple. Cardiovascular: Regular rate. Chest: Clear and unlabored. No crackles. Abdomen: Soft, nondistended. Extremities: Patient is noted to move all extremities. Neurologic: Unable to assess due to her acute delirium. ASSESSMENT: 1. Acute delirium with altered mental status. 2. Pneumonia. 3. Diabetes. 4. Multiple sclerosis. 5. Known coronary artery disease. PLAN: We will continue patient in the hospital. Continue to follow. At this point, we will add high-dose steroids to see if this helps as she does have MS and this certainly could be an MS exacerbation. She has no history of dementia or major depression per the daughter. In the differential certainly could be seizures. If she does not improve, she will need to have an EEG. We will continue to follow. cc: Bo Lock MD
[2018-10-09] MEDS: CLINDAMYCIN 900 MG/D5W 900 MG/50 ML IVPB IV SCH ×4 (00:55→22:01)
[2018-10-09] MEDS: PROTONIX IV SCH ×3 (00:55→22:01)
[2018-10-09] MEDS: SOLU-MEDROL IV SCH ×3 (02:45→17:59)
[2018-10-09 04:22] LABS: BASO# 0.02 X1000 (0.0-0.2); BASO% 0.3 % (0.0-0.8); HEMATOCRIT 29.3 % (37.0-47.0); HEMOGLOBIN 9.3 g/dL (12.0-16.0); IMM GRAN# 0.07 X1000 (0.0-0.04); LYMPH# 0.67 X1000 (1.2-3.4); LYMPH% 9.8 % (20.5-51.1); MCH 30.6 PG (27-31); MCHC 31.7 g/dL (33-37); MCV 96.4 FL (81-99); MONO# 0.28 X1000 (0.11-0.59); MONO% 4.1 % (1.7-9.3); MPV 12.2 FL (7.4-10.4); NEUT# 5.77 X1000 (1.4-6.5); NEUT% 84.8 % (42.2-75.2); PLT 140 X1000 (130-400); RBC 3.04 XMIL (4.2-5.4); RDW 13.8 % (11.5-14.5); WBC 6.81 X1000 (4.8-10.8)
[2018-10-09 04:56] LABS: AGAP 13; ALBUMIN 3.9 g/dL (3.5-5.0); ALKALINE PHOSPHATASE 20 U/L (32-104); BUN 31 mg/dL (8-22); CALCIUM 8.3 mg/dL (8.8-10.2); CHLORIDE 116 mmol/L (98-107); COSMO 306; ESTIMATED GFR 56; GLUCOSE 231 mg/dL (70-104); GOT 12 U/L (10-30); GPT 13 U/L (10-36); POTASSIUM 4.6 mmol/L (3.5-5.1); SODIUM 147 mmol/L (136-145); TCO2 18 mmol/L (25-35); TOTAL BILIRUBIN < 0.15 mg/dL (0.20-1.00); TOTAL PROTEIN 6.6 g/dL (6.3-8.3)
[2018-10-09] MEDS: NS 1,000 ML IV SCH (09:27)
[2018-10-09] MEDS: PAMELOR PO SCH (09:28)
[2018-10-09] MEDS: TRICOR PO SCH (09:28)
[2018-10-09] MEDS: FISH OIL CONCENTRATE PO SCH ×2 (09:28→22:01)
[2018-10-09] MEDS: ASPIRIN EC PO SCH (09:28)
[2018-10-09] MEDS: APRESOLINE PO SCH ×3 (09:29→16:01)
[2018-10-09] MEDS: LASIX PO SCH (09:29)
[2018-10-09] MEDS: ZOLOFT PO SCH (09:29)
[2018-10-09] MEDS: CALTRATE 600 + D PO SCH ×2 (09:29→22:00)
[2018-10-09] MEDS: DILANTIN PO SCH (09:29)
[2018-10-09] MEDS: COREG PO SCH ×2 (09:29→22:01)
[2018-10-09] MEDS: BRILINTA PO SCH ×2 (09:29→22:01)
[2018-10-09] MEDS: IMDUR PO SCH (09:29)
[2018-10-09] MEDS: ARAVA PO SCH (09:30)
[2018-10-09] MEDS: HUMALOG (PARKWAY) SUBQ SCH ×4 (12:09→22:02)
[2018-10-09] MEDS: ZITHROMAX 500 MG/NS 500 MG/250 ML IVPB IV SCH (12:10)
[2018-10-09] MEDS: ROCEPHIN 1 GM in NS 50 ML IV SCH (12:10)
[2018-10-09] MEDS: SODIUM CHLORIDE 0.9% INJ SCH (12:10)
[2018-10-09] MEDS: MIRAPEX PO SCH (22:00)
[2018-10-09] MEDS: LIPITOR PO SCH (22:00)
--- NOTE | 2018-10-09 22:05 | PROGRESS NOTE ---
DATE: 10/09/2018 SUBJECTIVE: Staff notes that the patient was much more awake and alert last evening and this morning. States she told them she wanted mashed potatoes for breakfast. Currently, she is not answering my questions. OBJECTIVE: Vital signs: Temperature 97.9, pulse 86, respiratory rate 18, BP 183/88. General: Patient is much more alert this morning. Her eyes are open. She does respond when her daughter repeatedly asks her questions. She is in no current respiratory distress. HEENT: Normocephalic. Neck: Supple. Cardiovascular: Regular rate. Chest: Clear, nonlabored. Abdomen: Soft, nondistended. Extremities: Moves all extremities. ASSESSMENT: 1. Acute delirium of undetermined origin. 2. Pneumonia. 3. Diabetes. 4. Multiple sclerosis. 5. Acute kidney injury, resolved. 6. Hypernatremia. 7. Hypothyroidism. PLAN: We will continue antibiotics. Currently, patient is much improved, much more awake and alert today than she has been. Likely the steroids have had an effect. This certainly could be an MS exacerbation induced by her pneumonia. We will continue to follow. We will wean steroids as soon as possible, given her diabetes. We will leave her in the ICU today and hopefully can move to the floor tomorrow. Certainly may need an MRI if symptoms do not improve. cc: Bo Lock MD
[2018-10-10] MEDS: SOLU-MEDROL IV SCH ×3 (02:31→20:45)
[2018-10-10] MEDS: ATIVAN PO PRN (02:31)
[2018-10-10] MEDS: NS 1,000 ML IV SCH (06:31)
[2018-10-10] MEDS: HUMALOG (PARKWAY) SUBQ SCH ×5 (06:32→22:26)
[2018-10-10] MEDS: CLINDAMYCIN 900 MG/D5W 900 MG/50 ML IVPB IV SCH ×2 (06:32→13:50)
[2018-10-10] MEDS: PAMELOR PO SCH (09:02)
[2018-10-10] MEDS: APRESOLINE PO SCH ×3 (09:02→16:17)
[2018-10-10] MEDS: ARAVA PO SCH (09:02)
[2018-10-10] MEDS: CALTRATE 600 + D PO SCH ×2 (09:03→21:09)
[2018-10-10] MEDS: LASIX PO SCH (09:03)
[2018-10-10] MEDS: DILANTIN PO SCH (09:03)
[2018-10-10] MEDS: FISH OIL CONCENTRATE PO SCH ×2 (09:03→21:08)
[2018-10-10] MEDS: BRILINTA PO SCH ×2 (09:03→21:09)
[2018-10-10] MEDS: IMDUR PO SCH (09:03)
[2018-10-10] MEDS: ASPIRIN EC PO SCH (09:03)
[2018-10-10] MEDS: TRICOR PO SCH (09:03)
[2018-10-10] MEDS: ZOLOFT PO SCH (09:03)
[2018-10-10] MEDS: COREG PO SCH ×2 (09:03→21:09)
[2018-10-10] MEDS: SODIUM CHLORIDE 0.9% INJ SCH (11:30)
[2018-10-10] MEDS: PROTONIX IV SCH ×3 (11:30→22:42)
[2018-10-10] MEDS: ROCEPHIN 1 GM in NS 50 ML IV SCH (13:22)
--- NOTE | 2018-10-10 14:24 | DISCHARGE SUMMARY ---
ADMISSION DATE: 10/06/2018 DISCHARGE DATE: 10/10/2018 PRIMARY CARE PHYSICIAN: Dr. Person. ADMISSION DIAGNOSES: 1. Altered mental status, causes are multifactorial. 2. Overdose. 3. Left lung pneumonia. 4. Diabetes. 5. Acute kidney injury, likely secondary to dehydration. 6. History of coronary artery disease, status post coronary artery bypass graft with subsequent PCI. 7. Gastroesophageal reflux disease. 8. Severe hypertriglyceridemia. DISCHARGE DIAGNOSES: 1. Altered mental status, resolved. 2. Overdose, stable. 3. Left lung pneumonia, improved. 4. Diabetes. 5. Acute kidney injury likely secondary to dehydration resolved. 6. History of coronary artery disease status post coronary artery bypass graft with subsequent PCI. 7. Hypothyroidism. 8. Gastroesophageal reflux disease. 9. Severe hypertriglyceridemia. SUMMARY OF FINDINGS: This is a 63-year-old female who presented to the emergency room with her daughter and was altered, mumbling, would occasionally answer yes or no questions, but primarily the history was taken from the daughter and her chart. Daughter stated that the patient was at an outlying facility Wednesday night for an accidental overdose of her medications. Once that got out of her system, she was back to her normal self. The daughter stated she had to work this prior week, and she had family members coming in and out to check on the patient. The patient was found on the floor approximately 24 hours prior to arriving by a family member. The patient did not remember falling, but had no visible injury. The daughter had stated that she was not walking, eating or drinking anything since the morning prior to arrival, and it was unclear if she had taken some other medicines. When she arrived, her chest x-ray also showed worsening ill-defined infiltrate in the lingula. We did a head and cervical spine CT that was normal. We did an echocardiogram on 10/07/2018 that showed an ejection fraction of 45% with some mild reduction in LV systolic function. Cardiology was consulted and followed along with this patient. She has improved, and is much more alert and awake. She had a history of MS, and it was felt that this could certainly be an MS exacerbation induced by her pneumonia. We have weaned her steroids, and it is now felt that she can safely be discharged home. DISCHARGE MEDICATIONS: 1. Aspirin 81 mg p.o. daily. 2. Atorvastatin 40 mg p.o. daily. 3. Calcium with vitamin D 1 p.o. b.i.d. 4. Coreg 25 mg p.o. b.i.d. 5. Fenofibrate 160 mg p.o. daily. 6. Lasix 40 mg p.o. daily. 7. Hydralazine 100 mg p.o. t.i.d. 8. Imdur 60 mg p.o. daily. 9. Leflunomide 20 mg p.o. daily. 10. Nortriptyline 75 mg p.o. daily. 11. Lovaza 1 g 2 capsules p.o. b.i.d. 12. Dilantin 300 mg p.o. daily. 13. Mirapex 0.5 mg p.o. at bedtime. 14. Zoloft 50 mg p.o. daily. 15. Brilinta 90 mg p.o. b.i.d. 16. A prescription of Augmentin 875/125 1 p.o. q.12 hours #14 with no refills. 17. Klonopin 0.5 mg p.o. daily. 18. Lisinopril 20 mg p.o. daily. 19. Magnesium 250 mg p.o. b.i.d. 20. Prednisone taper as directed. 21. Lyrica 150 mg p.o. t.i.d. 22. Spironolactone 25 mg p.o. daily. FOLLOW-UP: She will need to follow up with her primary care physician in 1 to 2 weeks and call their office for an appointment. All discharge instructions have been reviewed with the patient and she verbalizes understanding. TIME SPENT: 33 minute discharge. Dictated by BEHZAD Ayala for Enrico Bean MD cc: MD Monica Hernandes CRNP Alexis R. Penot, MD
[2018-10-10] MEDS ORDERED: IMODIUM PO PRN (14:51)
--- NOTE | 2018-10-10 17:35 | DISCHARGE SUMMARY ---
ADMISSION DATE: 10/06/2018 DISCHARGE DATE: 10/10/2018 SUBJECTIVE: Patient is requesting to go home. She seems to be mentating better, alert, oriented x3. She has no focal complaints and very insistent on going home. OBJECTIVE DATA: No fever. She has got a little bit of tachycardia, but overall she is improved. I think she is probably stable to go home. Anticipate discharge today. We will discharge her on Augmentin and a slow prednisone taper for her presumed MS exacerbation and follow closely. cc: Enrico Bean MD
[2018-10-10] MEDS: TEARISOL OPH SOLUTION BOTH EYES SCH (21:06)
[2018-10-10] MEDS: LIPITOR PO SCH (21:09)
[2018-10-10] MEDS: MIRAPEX PO SCH (21:09)
[2018-10-11] MEDS: SOLU-MEDROL IV SCH (04:25)
[2018-10-11] MEDS: HUMALOG (PARKWAY) SUBQ SCH ×3 (06:22→16:08)
[2018-10-11] MEDS ORDERED: PROTONIX PO SCH (07:00)
[2018-10-11] MEDS: APRESOLINE PO SCH ×3 (09:28→16:08)
[2018-10-11] MEDS: TRICOR PO SCH (09:28)
[2018-10-11] MEDS: COREG PO SCH (09:28)
[2018-10-11] MEDS: LASIX PO SCH (09:28)
[2018-10-11] MEDS: ASPIRIN EC PO SCH (09:28)
[2018-10-11] MEDS: IMDUR PO SCH (09:28)
[2018-10-11] MEDS: FISH OIL CONCENTRATE PO SCH (09:29)
[2018-10-11] MEDS: CALTRATE 600 + D PO SCH (09:29)
[2018-10-11] MEDS: ZOLOFT PO SCH (09:29)
[2018-10-11] MEDS: DILANTIN PO SCH (09:29)
[2018-10-11] MEDS: PAMELOR PO SCH (09:29)
[2018-10-11] MEDS: ARAVA PO SCH (09:29)
[2018-10-11] MEDS: BRILINTA PO SCH (09:29)
[2018-10-11] MEDS: TEARISOL OPH SOLUTION BOTH EYES SCH ×3 (09:34→16:43)
--- NOTE | 2018-10-11 11:00 | DISCHARGE SUMMARY ---
ADMISSION DATE: 10/06/2018 DISCHARGE DATE: DISCHARGE ADDENDUM: The patient was monitored overnight because she had persistent diarrhea, which she has had intermittently now for several days. No other major issues. Her C. Diff test was negative. Blood sugars have been stable. I feel like she is stable for discharge today. Abdominal exam is benign. Lungs are clear. I did increase her Questran to 4 g b.i.d. She had been on 4 daily previously. Anticipate discharge today to family, and we will continue to monitor closely. cc: MD Gumaro Thomas MD
[2018-10-11] MEDS ORDERED: QUESTRAN LIGHT PO ONE (11:08)
[2018-10-11] MEDS: ROCEPHIN 1 GM in NS 50 ML IV SCH (12:40)
[2018-10-11] MEDS ORDERED: SOLU-MEDROL IV SCH (16:00)
[2018-10-11] MEDS ORDERED: QUESTRAN LIGHT PO SCH (16:00)
[2018-10-11 16:42] VITALS: BP 157/79
== END 2018-10-11 17:05 | disposition home or self-care (01) | DRG 58 ==
LOC: P.ED 07:05 → P.ICU 10:52 → SUATTDRO 10:52
PROVIDERS: ATTEND Internal Medicine
CPT/HCPCS: 51702; 70450; 71010; 71045; 72125; 80053; 80104; 80301; 80305; 81001; 82550; 82553; 82948; 83605; 83735; 84484; 85025; 85610; 87040; 87324; 93005; 93306; 96361; 96365; 96372; 99285; A9270; C9113; G0431; G0434; G0477; J0456; J0696; J1815; J2920; J2930; J7030; S0164; XXXXX

== ENCOUNTER 2018-11-28 17:19 | Inpatient (IN) ==
[2018-11-28] MEDS ORDERED: NS 500 ML ONE (19:42)
[2018-11-28] MEDS ORDERED: TYLENOL PO PRN (19:53)
[2018-11-28] MEDS ORDERED: NS 1,000 ML IV SCH (20:00)
[2018-11-28] MEDS ORDERED: MIRAPEX PO SCH (21:00)
[2018-11-28] MEDS ORDERED: LIPITOR PO SCH (21:00)
--- NOTE | 2018-11-28 21:08 | Diag Imaging Result Doc PS360 ---
EXAM: CHEST-PORTABLE HISTORY: CP TECHNIQUE: Portable chest single view COMPARISON: 10/06/2018 FINDINGS: The lungs are well expanded. The heart is borderline mildly prominent. There are sternal wires and surgical clips. The vessels are not distended. There are no infiltrates. No effusion identified. IMPRESSION: Borderline mildly prominent heart, but no pneumonia on current exam. Electronically signed by Shant Marina 11/28/2018 9:06 PM
[2018-11-28 21:20] LABS: HDL < 3 mg/dL (45-65); HEMOGLOBIN A1C 7.1 % (4.8-6.0); LDL 655 mg/dL; VLDL 163 mg/dL
[2018-11-28] MEDS: PAMELOR PO SCH (21:23)
[2018-11-28] MEDS: DILANTIN PO SCH (21:23)
[2018-11-28] MEDS: COREG PO SCH (21:25)
[2018-11-28] MEDS: BRILINTA PO SCH (21:25)
[2018-11-28] MEDS: HUMALOG SUBQ SCH (21:26)
[2018-11-28 21:29] LABS: BASO# 0.05 X1000 (0.0-0.2); BASO% 0.6 % (0.0-0.8); EOS# 0.16 X1000 (0.0-0.7); HEMATOCRIT 29.1 % (37.0-47.0); HEMOGLOBIN 11.6 g/dL (12.0-16.0); IMM GRAN# 0.05 X1000 (0.0-0.04); IMM GRAN% 0.6 % (0.0-0.5); LYMPH# 1.08 X1000 (1.2-3.4); LYMPH% 13.3 % (20.5-51.1); MCH 38.2 PG (27-31); MCHC 39.9 g/dL (33-37); MCV 95.7 FL (81-99); MONO# 1.11 X1000 (0.11-0.59); MONO% 13.7 % (1.7-9.3); NEUT# 5.66 X1000 (1.4-6.5); NEUT% 69.8 % (42.2-75.2); PLT 117 X1000 (130-400); RBC 3.04 XMIL (4.2-5.4); RDW 13.5 % (11.5-14.5); WBC 8.11 X1000 (4.8-10.8)
[2018-11-28] MEDS: OSCAL 500 + D PO SCH (21:30)
[2018-11-28] MEDS: QUESTRAN PO SCH (21:31)
[2018-11-28 21:32] LABS: CHOLESTEROL 858 mg/dL (0-200); TRIGLYCERIDES > 4425 mg/dL (35-135)
[2018-11-28 21:35] LABS: FERRITIN 295 ng/mL (13-150); TIBC 80 ug/dL; TOTAL IRON 0 ug/dL (49-151)
[2018-11-28 21:36] LABS: EOS 1 % (1-10); LYMPHS 11 % (21-51); MONO 2 % (1-9); SEGS 86 % (42-75)
[2018-11-28 21:37] LABS: UNBOUND IRON 0 ug/dL (112-346)
[2018-11-28 21:38] LABS: IRON SATURATION 0 %
[2018-11-28 22:28] LABS: CALCIUM 8.3 mg/dL (8.8-10.2); CREATININE 0.8 mg/dL (0.5-0.9); POTASSIUM 3.6 mmol/L (3.5-5.1)
[2018-11-28 23:12] LABS: UR AMPHETAMINES QUAL NONE DETECTED (NONE DETECT); UR BARBITUATES QUAL NONE DETECTED (NONE DETECT); UR BENZODIAZEPIN QUAL NONE DETECTED (NONE DETECT); UR CANNABINOIDS QUAL NONE DETECTED (NONE DETECT); UR COCAINE QUAL NONE DETECTED (NONE DETECT); UR METHADONE QUAL NONE DETECTED (NONE DETECT); UR OPIATES QUAL PRESUMPTIVE POSITIVE (NONE DETECT); UR OXYCODONE QUAL NONE DETECTED (NONE DETECT); UR PCP QUAL NONE DETECTED (NONE DETECT)
[2018-11-28 23:15] LABS: URINE SOURCE CLEAN CATCH
[2018-11-28 23:27] LABS: BILIRUBIN URINE NEGATIVE (NEGATIVE); BLOOD URINE NEGATIVE (NEGATIVE); COLOR YELLOW; GLUCOSE URINE TRACE mg/dL (NEGATIVE); KETONE URINE NEGATIVE (NEGATIVE); LEUKOCYTES URINE NEGATIVE (NEGATIVE); NITRITE URINE NEGATIVE (NEGATIVE); PH URINE 6.5; PROTEIN URINE NEGATIVE (NEGATIVE); SP GRAVITY URINE 1.005; TURBIDITY URINE CLEAR (CLEAR); UR EPITHELIAL CELLS <10 /HPF (<10); URINE BACTERIA NEGATIVE /HPF; URINE RBC <10 /HPF (<10); URINE WBC <10 /HPF (<10); UROBILINOGEN URINE NORMAL (NORMAL)
[2018-11-29] MEDS: HUMALOG SUBQ SCH ×4 (01:13→12:09)
--- NOTE | 2018-11-29 04:55 | HISTORY AND PHYSICAL ---
CHIEF COMPLAINT: Chest pain. HISTORY OF PRESENT ILLNESS: Ms. Birmingham is a 63-year-old female with a fairly large cardiac history. She has known coronary artery disease, status post bypass grafting and subsequently with multiple cardiac stents. She has hyperlipidemia, severe hypertriglyceridemia, multiple sclerosis, hypertension, diabetes mellitus type 2, now insulin dependent, hypothyroidism, anemia, diabetic gastroparesis, GERD, and peripheral vascular disease. She originally went to [facility] related to having elevated blood sugars. She has been working with her golf caddie, Dr. Escalante in [place]. They have been titrating her insulin up, however her blood sugars have remained high. She had complained of polydipsia, polyphagia, and polyuria as well as the chest pain that had been off and on for the last couple of days. She then started having substernal chest pain that radiated into her jaws, did not radiate into her back or arms. She had nausea with no vomiting and became diaphoretic. She was also having dyspnea on exertion. The patient is known to have mild congestive heart failure. I believe her ejection fraction is around 45%. At any rate, baseline laboratory data was obtained at [facility] but related to her extensive cardiac history she was sent here for followup with a trimming cutter machine. She will be admitted to the medical floor for further evaluation and treatment. PAST MEDICAL HISTORY: See HPI. PREVIOUS SURGICAL HISTORY: 1. Coronary artery bypass graft. 2. Multiple cardiac stenting. 3. AAA repair. 4. Bilateral upper extremity ulnar nerve release. 5. Hysterectomy. 6. Left hip repair. SOCIAL HISTORY: No tobacco, alcohol or illicit drugs. FAMILY HISTORY: Mother had coronary artery disease. Had her first coronary artery bypass grafting in her 50s. ALLERGIES: No known drug allergies. HOME MEDICATIONS: Aspirin 81 mg p.o. daily, atorvastatin 40 mg p.o. daily, calcium 500+ vitamin D one p.o. b.i.d., carvedilol 12.5 mg p.o. b.i.d., fenofibrate 160 mg p.o. daily, furosemide 40 mg p.o. daily, hydralazine 100 mg p.o. t.i.d., Isosorbide 60 mg p.o. daily, nortriptyline 75 mg p.o. daily, phenytoin 300 mg p.o. daily, Mirapex 0.5 mg p.o. at bedtime, Lyrica 150 mg p.o. t.i.d., sertraline 50 mg p.o. daily, Brilinta 90 mg p.o. b.i.d., clonazepam 0.5 mg p.o. b.i.d. p.r.n., magnesium 250 mg p.o. daily, spironolactone 25 mg p.o. daily, Questran 4 grams p.o. b.i.d., Zanaflex 8 mg p.o. t.i.d., vitamin D2 100,000 units p.o. as directed, insulin aspart 28 units subcutaneously t.i.d., Lovaza 2 grams p.o. b.i.d. REVIEW OF SYSTEMS: Fourteen point review of systems conducted with the patient. Pertinent positives listed above in the HPI. She also had complaint of diarrhea, which has been chronic, that she takes Questran for. She is seeing her primary care provider for this. All other systems reviewed and found to be negative. PHYSICAL EXAMINATION: VITAL SIGNS: Temperature 98.5, pulse 71, respirations 17, blood pressure 150/74, oxygen saturation 95% on room air. GENERAL: A 63-year-old well developed, well nourished female lying in the medical floor bed. Answers all questions appropriate. She is alert and oriented x3. HEENT: Head is atraumatic, normocephalic. Pupils equal, round, reactive to light. Extraocular eye movement is intact. Sclerae is anicteric. Conjunctivae is pale. Oral mucosa is moist. NECK: Supple. No JVD. No thyromegaly. Trachea is midline. No cervical lymphadenopathy. CARDIAC: S1, S2 appreciated. No murmurs, gallops or rubs. LUNGS: Clear to auscultation bilaterally. No rhonchi, wheezes or rales. Symmetric rise and fall with respirations. ABDOMEN: Soft, nondistended, nontender. Bowel sounds present in all four quadrants. Normoactive. No pulsatile masses or organomegaly. EXTREMITIES: No clubbing, cyanosis or edema. 2+ pedal pulses bilaterally. GENITOURINARY: No bladder distention. Patient voids. Otherwise deferred. NEUROLOGICAL: Alert and oriented x3. Cranial nerves II-XII appear to be grossly intact. SKIN: Warm, dry, and intact. Mildly pale. No acute lesions or rash. MUSCULOSKELETAL: All four extremities within normal limits. DIAGNOSTIC DATA: Chest x-ray is pending. LABORATORY DATA: New laboratory data is pending. Laboratory data that will be listed was from earlier at [facility]. WBC 7.1. Hemoglobin 9.6. Hematocrit 26.9. Platelet count 120. Sodium 122. Potassium 3.3. Chloride 84. Carbon dioxide 25. BUN 19. Creatinine 1.1. Glucose 322. ASSESSMENT AND PLAN: 1. Chest pain with known coronary artery disease, rule out acute myocardial infarction. Will trend cardiac enzymes. Check a lipid profile. Continue patient's home medications. Consult Cardiology. Nothing by mouth after midnight. 2. Unstable angina. See above. 3. Hyperlipidemia with severe hypertriglyceridemia. Check a direct lipid profile. Continue fenofibrate and atorvastatin. 4. Diabetes mellitus, type 2, now insulin dependent with hyperglycemia. Check hemoglobin A1c. Sliding scale insulin with finger stick blood sugars every four hours. Will use moderate dosing. 5. Gastroesophageal reflux disease. Will give Prilosec. 6. Hyponatremia. This is likely related to patient's multiple antipsychotic medications. Will continue these at this time. Will give gentle fluid hydration while being mindful of fluid volume status as the patient does have mild congestive heart failure, she is not in exacerbation. On previous encounters the patient's sodium has been around the same level. 7. Chronic renal insufficiency. The patient is around baseline creatinine. Continue to monitor. Further recommendations per patient clinical course. Dictated by BEHZAD Broussard for Yonatan Hopper MD I have performed a face to face diagnostic evaluation. Labs/ xrays - reviewed. Exam- chest - clear, CV- regular A/P. Chest Pain- Admit, Cardiac work up, Cardiology consult. Dr. Hopper cc: MD hSine Hernandes CRNP Lloyd James, MD MTDD
[2018-11-29 06:17] LABS: BASO# 0.04 X1000 (0.0-0.2); BASO% 0.5 % (0.0-0.8); EOS# 0.13 X1000 (0.0-0.7); EOS% 1.7 % (0.0-10.0); HEMOGLOBIN 10.4 g/dL (12.0-16.0); IMM GRAN# 0.06 X1000 (0.0-0.04); IMM GRAN% 0.8 % (0.0-0.5); LYMPH# 0.66 X1000 (1.2-3.4); LYMPH% 8.8 % (20.5-51.1); MCH 34.9 PG (27-31); MCHC 37.1 g/dL (33-37); MONO% 14.7 % (1.7-9.3); MPV 12.1 FL (7.4-10.4); NEUT# 5.51 X1000 (1.4-6.5); NEUT% 73.5 % (42.2-75.2); PLT 118 X1000 (130-400); RBC 2.98 XMIL (4.2-5.4); RDW 13.5 % (11.5-14.5)
[2018-11-29 07:12] LABS: CHLORIDE 92 mmol/L (98-107); POTASSIUM 3.9 mmol/L (3.5-5.1); SODIUM 125 mmol/L (136-145); TCO2 17 mmol/L (25-35)
[2018-11-29 07:13] LABS: AGAP 16; BUN 16 mg/dL (8-22); GLUCOSE 245 mg/dL (70-104)
[2018-11-29 07:14] LABS: CALCIUM 7.9 mg/dL (8.8-10.2); CREATININE 0.8 mg/dL (0.5-0.9)
[2018-11-29 07:21] LABS: COSMO 260
[2018-11-29] MEDS: ZOFRAN IV PRN ×2 (07:35→12:51)
[2018-11-29] MEDS: MORPHINE IV PRN ×4 (08:22→20:21)
[2018-11-29] MEDS ORDERED: MAGNESIUM GLUCONATE PO SCH (09:00)
[2018-11-29] MEDS ORDERED: LASIX PO SCH (09:00)
[2018-11-29] MEDS ORDERED: ZOLOFT PO SCH (09:00)
[2018-11-29] MEDS ORDERED: LOFIBRA PO SCH (09:00)
[2018-11-29] MEDS ORDERED: ALDACTONE PO SCH (09:00)
[2018-11-29] MEDS ORDERED: SYNTHROID PO ONE (10:18)
[2018-11-29 10:41] LABS: AMYLASE 1446 U/L (20-200); IRON SATURATION 13 %; TIBC 206 ug/dL; TOTAL IRON 27 ug/dL (49-151); UNBOUND IRON 179 ug/dL (112-346)
[2018-11-29 10:50] LABS: LIPASE 2136 U/L (13-60); TRIGLYCERIDES > 4425 mg/dL (35-135)
[2018-11-29] MEDS ORDERED: SAMSCA PO ONE (10:54)
--- NOTE | 2018-11-29 11:04 | EKG Report ---
Test Performed on : 11/29/2018 10:47:48 AM Test Reason : chest pain Blood Pressure : / mmHG Vent. Rate : 074 BPM Atrial Rate : 074 BPM P-R Int : 166 ms QRS Dur : 090 ms QT Int : 448 ms P-R-T Axes : 046 001 118 degrees QTc Int : 497 ms Sinus rhythm. with occasional premature ventricular complexes. Left ventricular hypertrophy with repolarization abnormality Inferior infarct , age undetermined Abnormal ECG When compared with ECG of 06-OCT-2018 13:36, Inferior infarct is now present T wave inversion no longer evident in Inferior leads Confirmed by Nestor WADSWORTH, Judson Vallecillo ([id number]) on 11/30/2018 10:20:06 AM
[2018-11-29] MEDS: BRILINTA PO SCH ×2 (11:23→20:43)
[2018-11-29] MEDS: APRESOLINE PO SCH ×2 (11:24→12:10)
[2018-11-29] MEDS: PRILOSEC PO SCH (11:26)
[2018-11-29] MEDS: ZANAFLEX PO SCH ×2 (11:26→12:11)
[2018-11-29] MEDS: ASPIRIN EC PO SCH (11:28)
[2018-11-29] MEDS: COREG PO SCH ×2 (11:29→20:20)
[2018-11-29] MEDS: IMDUR PO SCH (11:29)
[2018-11-29] MEDS: OSCAL 500 + D PO SCH (11:30)
[2018-11-29] MEDS: QUESTRAN PO SCH (11:31)
--- NOTE | 2018-11-29 11:46 | CARDIOLOGY CONSULTATION ---
DATE: 11/29/2018 REASON FOR CONSULTATION: Cardiology was consulted for coronary artery disease, coronary artery bypass grafting, unstable angina. HISTORY OF PRESENT ILLNESS: Ms. Birmingham is a 63-year-old, lady with history of diabetes, coronary artery disease, coronary artery bypass grafting with multiple interventions. Over the last few years, has had severe hypertriglyceridemia and multiple sclerosis as well. She had severe retrosternal chest discomfort. She says it felt like the first time when she had a heart attack, and this radiated to her jaw and down both arms. This was not associated with any nausea or vomiting, but she became diaphoretic. Subsequently, she had further episodes of chest discomfort. She came to the emergency room, was admitted, and her cardiac enzymes so far have been negative. Her last coronary intervention at [facility] was on 09/09/2018. She aslo complained of abdominal discomfort. REVIEW OF SYSTEMS: General: A 14-point review of system was done. GI System: There is history of nausea, no vomiting or diarrhea.She has had abdominal discomfort There is no history of hematemesis or melena. Central nervous system: No focal weakness to suggest a CVA, TIA. System: There is no dysuria or hematuria. Endocrine System: She is followed by practice performance manager in [place], Dr. Escalante. However, her blood sugars have been out of control. PAST MEDICAL HISTORY: 1. Coronary artery disease, status post coronary artery bypass grafting in 2008 with COLÓN to left anterior descending artery, SVG to OM, SVG to PLS. 2. She had multiple cardiac catheterizations and intervention; the most recent cardiac catheterization was on 09/09/[address] [facility]. 3. Left main was a large vessel. Widely patent. Stent in the left anterior descending artery which protrudes into the left main. Beyond that, it bifurcates into LAD and circumflex. LAD is a medium-sized vessel with 2 small diagonals. LAD subsequently occluded. Circumflex is a medium-sized vessel, 60 to 70 percent stenosis in the proximal portion. RCA is dominant. Chronically occluded. 4. Graft anatomy COLÓN to LAD was patent with distal small vessel disease. SVG to OM critical 99% stenosis; previously placed stent was patent. SVG to RCA occluded, not injected. The patient underwent a drug-eluting stent to the SVG to OM. 5. She had a previous cardiac catheterization on 07/14/2018. At that time she had a drug-eluting stent again to the vein graft to the diagonal branch. At that time, the graft to the right coronary artery was occluded. 6. Hypertension. 7. History of premature ventricular beats. Frequent and supraventricular tachycardia in the past. 8. Severe hypertriglyceridemia. 9. Diabetes. 10. Hyperlipidemia. 11. Multiple sclerosis. 12. Hypothyroidism. 13. Nephrolithiasis. 14. Sleep apnea. 15. Seizure disorder. 16. She does not smoke. Does not drink. FAMILY HISTORY: Premature coronary artery disease. HOME MEDICATIONS: Aspirin 81 mg a day, atorvastatin 40, Coreg 12.5 b.i.d., fenofibrate 160, Lasix 40 mg a day, hydralazine 100 p.o. t.i.d., isosorbide 60 mg daily, nortriptyline 75, phenytoin 300 mg a day, Mirapex 0.5 at bedtime, Lyrica 150 p.o. t.i.d., sertraline 50 mg daily, Brilinta 90 mg p.o. b.i.d., clonazepam 0.5 mg as needed, spironolactone 25, Questran 4 g p.o. b.i.d., Zanaflex 8 mg p.o. t.i.d., insulin as directed, vitamin D, Lovaza. PHYSICAL EXAMINATION: Vital Signs: Blood pressure was 150/70. Cardiovascular System: Normal jugular venous pressure. First and second heart sounds were heard. There was no S3 gallop. Respiratory System: Normal air entry. There are no crepitations or rhonchi. Abdomen: Soft, she has epigastric tenderness. Bowel sounds audible. There was no guarding or rigidity. Bowel sounds were heard. Central nervous system: Alert and was moving all 4 extremities. Extremities: Examination of extremities revealed no edema. LABORATORY EXAMINATION: Revealed sodium 125, potassium 3.9, BUN 16, creatinine 0.8. Lipase 2136, triglycerides elevated at 4425. Amylase 1446. Cardiac enzymes were negative. Sodium 125, potassium 3.9, BUN 16, creatinine 0.8. Hematology: Hemoglobin 10.4, hematocrit 13.5, platelet count of 118. Urine negative. IMAGING STUDIES: Chest x-ray: Mild prominent cardiomegaly, otherwise unremarkable. ASSESSMENT AND PLAN: 1. Ms. Analilia Birmingham is a 63-year-old, lady with multiple medical problems. She has had coronary artery disease, coronary artery bypass grafting, intervention in 2018 and in August 2018 had severe triglyceridemia. Comes in with complaints of severe retrosternal chest discomfort radiating to the neck, as well as to down the arms typical of her anginal symptoms. From a cardiac standpoint, she has been ruled out for myocardial infarction by cardiac enzymes. She has hyponatremia as well. This could be secondary to the severe triglyceridemia. Given her severe hypertriglyceridemia, it may be a false positive sodium level. We will check her serum sodium again. 2. She has severe elevated amylase and lipase given her severe triglyceridemia her abdominal pain is likely to be from pancreatitis. A CT scan of her abdomen has been ordered; we will follow up on that. 3. From a cardiac standpoint, symptoms very typical of angina as well. For the present time, I have not made any changes continue all cardiac medications. We will continue with the aspirin and Brilinta. Recommend GI consultation 4. Continue with her medications for diabetes. 5. Continue with her medications for hypothyroidism. Thank you for the consult. We will follow hospital course. cc: Basil Sawyer MD [facility]
[2018-11-29 11:50] LABS: CHOLESTEROL 807 mg/dL (0-200)
[2018-11-29 11:51] LABS: HDL 7 mg/dL (45-65); TRIGLYCERIDES > 4425 mg/dL (35-135)
[2018-11-29] MEDS: LYRICA PO SCH ×2 (11:52→12:09)
[2018-11-29] MEDS ORDERED: LR 1,000 ML IV SCH ×2 (12:15→14:35)
--- NOTE | 2018-11-29 13:34 | PROGRESS NOTE ---
DATE: 11/29/2018 SUBJECTIVE: Ms. Birmingham is having abdominal pain that started during the night. She is having abdominal distention and nausea. OBJECTIVE: Vital Signs: Blood pressure is 170/60 with a heart rate of 70, respirations are 20, temperature is 98.1 degrees oral, room air saturations are 95-97%. Eyes: Pupils equal, round, react to light. EOMs are intact. Sclerae anicteric. HENT: Head is normocephalic, atraumatic. Mucous membranes are dry. Neck : is supple with trachea midline. She has no JVD. Cardiovascular: Regular rate and rhythm. S1 and S2 are appreciated. No murmurs. She has no lower extremity edema. Peripheral pulses are palpable x4 extremities. Bilateral calves are nontender to palpation. Pulmonary: Breath sounds are clear with no increased work of breathing noted. Chest rises and falls symmetrically with respiration. Chest wall is nontender to palpation. Gastrointestinal: Abdomen is distended. It is soft. She is tender in the right upper quadrant, umbilical, to right lower quadrant. Bowel sounds are hyperactive. : She has no CVAT nor suprapubic tenderness. Neurologic: She is alert and oriented x3. Cranial nerves 2-12 grossly intact. Skin is warm and dry, pale. Laboratory Data: WBC is 7.5, with a hemoglobin of 10.4, hematocrit 28, platelets of 113,500. Sodium 125, potassium 3.9, BUN 16, with a creatinine of 0.8, CO2 is 17. Blood sugars are running in the 240s to 260 range. Triglycerides are greater than 4425 which is chronic, with a cholesterol of 858. She was noted to have an HDL of less than 3. TSH is 10.9. Urinalysis essentially negative. Urine drug screen is presumptive positive for opiates. A chest x-ray reveals borderline mildly prominent heart but no pneumonia. Repeat chemistries: Amylase is 1446, lipase 2136. ASSESSMENT AND PLAN: 1. Acute pancreatitis. NPO except for medications. change her intravenous fluids to lactated Ringer's at 150 an hour. consult gastroenterology. She will be transferred to the intensive care unit for close monitoring. 2. Severe hypertriglyceridemia. This is chronic. She will be transferred to the intensive care unit, placed on an insulin drip per protocol 3. Coronary artery disease, status post coronary artery bypass grafting and multiple stents. The patient has been ruled out by enzymes. Continue with telemetry. Continue her medications and consult cardiology. 4. Chest pain, very typical of unstable angina. Cardiology will follow. 5. Insulin-dependent diabetes mellitus. insulin drip. 6. Hypothyroidism. Since the patient has not been on medication over the last few months, her TSH is elevated. As she is nothing per oral at present, we will give 12.5 mg of levothyroxine intravenous daily. 7. History of multiple sclerosis. 8. Hypertension. We will monitor vital signs and continue her home medications as is appropriate. 9. Seizure disorder. Aware. 10. History of nephrolithiasis. Aware. CT of the abdomen and pelvis with intravenous contrast. If hemorrhagic pancreatitis is noted, we will stop her aspirin and Brilinta. Otherwise, we will continue. Dictated by BEHZAD Espitia for Neymar Livingston MD cc: BEHZAD Espitia MD [facility]
--- NOTE | 2018-11-29 13:44 | Diag Imaging Result Doc PS360 ---
EXAM: CT ABD/PELVIS W/IV CONT ONLY 11/29/2018 HISTORY: pancreatitis TECHNIQUE: This exam was performed using automated exposure control, adjustment of mA or kV according to patient size, and/or use of iterative reconstruction technique. COMMENT: There is bilateral basilar atelectasis in the costophrenic sulci posteriorly. This was not present on 01/18/2018. There is mucosal thickening in the distal esophagus and there is a small hiatal hernia. There are atherosclerotic calcifications in the abdominal aorta. There has been aortobifemoral graft placement. The graft is PA. The mesenteric and renal arteries are patent. There is peripancreatic edema. There is no evidence of abscess there is no evidence of necrosis. There is minimal free fluid. There is no evidence of bowel obstruction. There is no evidence of significant adenopathy. The kidneys are without evidence of hydronephrosis. There are small cortical cysts bilaterally. Pelvis: The appendix is not distended. The urinary bladder is unremarkable. There has been hysterectomy. There has been internal fixation of the proximal left femur. There is no evidence of acute bony disease. IMPRESSION: Acute pancreatitis. Electronically signed by Petey Hill 11/29/2018 1:41 PM
[2018-11-29] MEDS ORDERED: SODIUM CHLORIDE 0.9% INJ PRN (14:35)
[2018-11-29] MEDS ORDERED: SODIUM CHLORIDE 0.9% INJ ONE (14:39)
[2018-11-29] MEDS ORDERED: PHENERGAN IV ONE (14:39)
[2018-11-29] MEDS: SYNTHROID IV SCH (15:16)
[2018-11-29] MEDS ORDERED: D50W SYRINGE IV SCH (15:45)
[2018-11-29] MEDS ORDERED: HUMULIN R 100 UNIT in NS 100 ML IV SCH ×2 (15:45→16:13)
[2018-11-29] MEDS: HUMULIN R 100 UNIT in NS 100 ML IV SCH (16:17)
[2018-11-29] MEDS: D5 NS 1,000 ML IV SCH ×2 (18:06→19:22)
[2018-11-29 18:16] LABS: ALB/GLOB RATIO 1.2; ALBUMIN 3.2 g/dL (3.5-5.0); ALKALINE PHOSPHATASE 43 U/L (32-104); GOT < 5 U/L (10-30); GPT < 5 U/L (10-36); TOTAL BILIRUBIN < 0.15 mg/dL (0.20-1.00); TOTAL PROTEIN 5.8 g/dL (6.3-8.3)
[2018-11-29] MEDS: KLONOPIN PO PRN (20:20)
[2018-11-29] MEDS: DILANTIN PO SCH (20:21)
[2018-11-29] MEDS: PAMELOR PO SCH (20:44)
[2018-11-29] MEDS ORDERED: TYLENOL PO PRN (22:40)
--- NOTE | 2018-11-29 22:49 | GASTROENTEROLOGY CONSULTATION ---
DATE: 11/29/2018 Reason for consultation: acute pancreatitis HPI: Ms. Analilia Birmingham is a 63 year old woman with HTN, HLD, probable familial hypertriglyceridemia, IDDM2, CAD s/p OH and CABGxv3 and stents, systolic CHF with EF 45%, AAA repair, hypothyroidism, depression/anxiety, chronic anemia, MS, gastroparesis, GERD, colonic polyps, and PVD who presented from outside hospital for worsening substernal chest pain. She describes developed substernal chest pressure that started yesterday morning and lasting all day. She describes associated neck pain, right arm tingling, and SOB. She reports also having NBNB emesis, periumbilical abdominal pain and diarrhea. On presentation, she was found to have elevated lipase 2136 consistent with pancreatitis in the setting of TG >4425. Of note, patient was started on Repatha in 07/2018 for her elevated lipids; her next dose is due tomorrow. Her last EGD and colonoscopy was 5 years ago. Her primarily GI is Kaur Brown MD in [place]. ROS: as per HPI; otherwise 12 point ROS negative PAST MEDICAL HISTORY: See HPI. PREVIOUS SURGICAL HISTORY: 1. Coronary artery bypass graft. 2. Multiple cardiac stenting. 3. AAA repair. 4. Bilateral upper extremity ulnar nerve release. 5. Hysterectomy. 6. Left hip repair. SOCIAL HISTORY: No tobacco, alcohol or illicit drugs. FAMILY HISTORY: Mother had coronary artery disease. Had her first coronary artery bypass grafting in her 50s. Multiple family members with elevated triglycerides ALLERGIES: No known drug allergies. HOME MEDICATIONS: Aspirin 81 mg p.o. daily, atorvastatin 40 mg p.o. daily, calcium 500+ vitamin D one p.o. b.i.d., carvedilol 12.5 mg p.o. b.i.d., fenofibrate 160 mg p.o. daily, furosemide 40 mg p.o. daily, hydralazine 100 mg p.o. t.i.d., Isosorbide 60 mg p.o. daily, nortriptyline 75 mg p.o. daily, phenytoin 300 mg p.o. daily, Mirapex 0.5 mg p.o. at bedtime, Lyrica 150 mg p.o. t.i.d., sertraline 50 mg p.o. daily, Brilinta 90 mg p.o. b.i.d., clonazepam 0.5 mg p.o. b.i.d. p.r.n., magnesium 250 mg p.o. daily, spironolactone 25 mg p.o. daily, Questran 4 grams p.o. b.i.d., Zanaflex 8 mg p.o. t.i.d., vitamin D2 100,000 units p.o. as directed, insulin aspart 28 units subcutaneously t.i.d., Lovaza 2 grams p.o. b.i.d. PE: T 100.6 HR 85 RR 23 BP 115/57 94% GEN: awake, alert, NAD HEENT: anicteric, MMM, EOMI NECK: supple, no JVD PULM: CTAB, no wheezing ABD: ND, TTP throughout, no rebound, BS present EXT: no cce NEURO: nonfocal LABS: Na 125 K 3.9 Cl 92 CO2 17<--10 BUN 16 Cr 0.8 glu 245 WBC 7.5 Hgb 10.4 plts 118K Alb 3.2 pro 5.8 Calcium 7.9 iron 27 TIBC 206 ferritin 237 LFTs WNL troponin 0.81 TG >4425 TC 807 lipase 2136 TSH 10.9 folate 11.9 EXAM: CT ABD/PELVIS W/IV CONT ONLY 11/29/2018 COMMENT: There is bilateral basilar atelectasis in the costophrenic sulci posteriorly. This was not present on 01/18/2018. There is mucosal thickening in the distal esophagus and there is a small hiatal hernia. There are atherosclerotic calcifications in the abdominal aorta. There has been aortobifemoral graft placement. The graft is PA. The mesenteric and renal arteries are patent. There is peripancreatic edema. There is no evidence of abscess there is no evidence of necrosis. There is minimal free fluid. There is no evidence of bowel obstruction. There is no evidence of significant adenopathy. The kidneys are without evidence of hydronephrosis. There are small cortical cysts bilaterally. Pelvis: The appendix is not distended. The urinary bladder is unremarkable. There has been hysterectomy. There has been internal fixation of the proximal left femur. There is no evidence of acute bony disease. IMPRESSION: Acute pancreatitis. ASSESSMENT AND PLAN: Ms. Analilia Birmingham is a 63 year old woman with HTN, HLD, probable familial hypertriglyceridemia, IDDM2, CAD s/p OH and CABGxv3 and stents, systolic CHF with EF 45%, AAA repair, hypothyroidism, depression/anxiety, chronic anemia, MS, gastroparesis, GERD, colonic polyps, and PVD who presented from outside hospital for worsening substernal chest pain found to have uncomplicated acute pancreatitis. Labs notable for hyponatremia, low bicarb, hyperglycemia, anemia, thrombocytopenia, severely elevated TGs. #Acute pancreatitis: - NPO, IVFs, analgesics, antiemetics prn - serial abdominal exams - trend I/O - no need to trend lipase #Fever: likely from pancreatitis: would hold off on antibiotics at this time #Hypertriglyceridemia: insulin, give repatha tomorrow; may need apheresis worsens; check TG daily #Chest pain/CAD: mild troponin leak likely demand; continue home meds; cardiology following #IDDM2: SSI; glucose control #GERD: continue PPI #Chronic diarrhea: trend BMs; continue home questran when resume PO intake #Hyponatremia: likely pseudohyponatremia in setting of elevated TG; corrected Na is 134 #Low bicarbonate: IVFs as above #Anemia: no overt GI bleeding #Thrombocytopenia: unclear etiology; no Hx of cirrhosis or signs of splenomegaly on imaging Thank you for this consult. Will follow with you. RIRI
[2018-11-29 23:47] LABS: URINE SOURCE CATH
[2018-11-29 23:57] LABS: BILIRUBIN URINE NEGATIVE (NEGATIVE); BLOOD URINE NEGATIVE (NEGATIVE); CLARITY CLEAR (CLEAR); COLOR YELLOW; GLUCOSE URINE 100 mg/dL (NEGATIVE); KETONE URINE NEGATIVE (NEGATIVE); LEUKOCYTES URINE NEGATIVE (NEGATIVE); NITRITE URINE NEGATIVE (NEGATIVE); PROTEIN URINE TRACE mg/dL (NEGATIVE); SP GRAVITY URINE <= 1.005; UROBILINOGEN URINE 0.2 EU/dL (0.2-1.0)
[2018-11-29 23:58] LABS: URINE BACTERIA NEGATIVE /HFP; URINE EPITHELIAL CELLS <10 /HPF (<10); URINE RBC <10 /HPF (<10); URINE WBC <10 /HPF (<10); URINE YEAST NONE SEEN /HPF
[2018-11-29 23:59] LABS: URINE CAST NONE SEEN /LPF; URINE CRYSTAL NONE SEEN /HPF
[2018-11-30] MEDS: MORPHINE IV PRN ×4 (04:48→22:36)
[2018-11-30] MEDS: D50W SYRINGE IV SCH ×2 (05:14→12:06)
[2018-11-30] MEDS: ZOFRAN IV PRN ×3 (05:15→22:30)
[2018-11-30 06:01] LABS: HEMATOCRIT 26.7 % (37.0-47.0); HEMOGLOBIN 8.8 g/dL (12.0-16.0); MCV 97.1 FL (81-99); MPV 12.1 FL (7.4-10.4); RBC 2.75 XMIL (4.2-5.4); RDW 13.7 % (11.5-14.5); WBC 7.86 X1000 (4.8-10.8)
[2018-11-30] MEDS: SYNTHROID IV SCH (06:31)
[2018-11-30 06:36] LABS: CHOLESTEROL 462 mg/dL (0-200)
[2018-11-30 06:37] LABS: CALCIUM 8.1 mg/dL (8.8-10.2); MAGNESIUM 1.6 mg/dL (1.5-2.7); POTASSIUM 3.1 mmol/L (3.5-5.1)
[2018-11-30] MEDS ORDERED: POTASSIUM CHLORIDE IV SCH (07:00)
[2018-11-30] MEDS ORDERED: D5 NS IV SCH (07:00)
[2018-11-30] MEDS ORDERED: SYNTHROID PO SCH (07:00)
[2018-11-30] MEDS: HUMULIN R 100 UNIT in NS 100 ML IV SCH (07:01)
--- NOTE | 2018-11-30 07:20 | Diag Imaging Result Doc PS360 ---
EXAM: CHEST-PORTABLE INDICATION: SOB TECHNIQUE: One view COMPARISON: 11/28/2018 FINDINGS: There has been development of mild pulmonary venous congestion and mild interstitial edema. No other new consolidation is identified. Cardiac silhouette is stable. IMPRESSION: Interval development of mild coronary venous congestion and interstitial edema. Electronically signed by Rolly Pierce 11/30/2018 7:18 AM
[2018-11-30] MEDS ORDERED: POTASSIUM CHLORIDE IV PRN (07:30)
[2018-11-30] MEDS ORDERED: D5 NS IV PRN (07:30)
[2018-11-30 07:52] LABS: HDL 19 mg/dL (45-65); TRIGLYCERIDES 2006 mg/dL (35-135)
--- NOTE | 2018-11-30 07:55 | PROGRESS NOTE ---
DATE: 11/30/2018 SUBJECTIVE: This patient is feeling better. Her abdominal pain is a little bit better compared with yesterday, but mule tender around 7 to 8/10. Yesterday, it was 10/10. She has been getting fluid consistently, but the urine output is borderline low and the creatinine is increased a little bit. She does have a Green. I will request an evaluation by Nephrology Department because there is a high probability of having an acute kidney injury on this patient. Cardiology Department as well as Gastroenterology Department on board. We have been treating her hypertriglyceridemia with insulin drip, and it seems to be working. The triglyceride level today is 2061. Cholesterol also decreased to 462. She does have some rales mostly at the bases. She was complaining of shortness of breath during the night. Apparently, she uses a CPAP machine at home, but since she is receiving fluids and she is not having a good urine output I will decrease a little bit the rate of the Ringer lactate. I will ask for an x-ray. I will continue with the D5NS, and I will add potassium to these fluids. She is receiving a total of 150 mL/h. We will monitor. OBJECTIVE: Vital Signs: Temperature 99.4 degrees, pulse 90, respiratory rate 19, blood pressure 145/68, and oxygen saturation 95% on 2 L of nasal cannula. HEENT: Head normocephalic. No trauma. PERRLA. Neck: Supple. No JVD. No masses. Central trachea. Chest: Decreased breath sounds at the bases with some rales at the bases as well. Abdomen: Soft. Tenderness to palpation at the level of the epigastric area and periumbilical area. No signs of peritoneal irritation. Extremities: No edema. No clubbing. No cyanosis. Neurological: The patient is alert and oriented x3. No focal deficits. LABORATORY: WBC 7.8, hemoglobin 8.8, hematocrit 26.7, and platelets 109,000. Sodium 139, potassium 3.1, chloride 102, bicarbonate 26, BUN 9, creatinine 1, and glucose 63. The most recent at 5:21 of 219. Calcium 8.1, magnesium 1.6, triglycerides 2062, and cholesterol 462. ASSESSMENT AND PLAN: 1. Acute pancreatitis secondary to hypertriglyceridemia. We have placed this patient on Lactate Ringer's. Also, since she is getting a drip of insulin, she is receiving D5NS. I will decrease a little bit the rate of the Ringer lactate. She will receive a total of 150 mL/h of fluids. 2. Severe triglyceridemia. Continue with heparin drip. This is not the first time that this patient has elevated triglyceride level. Actually, she has been having elevated triglycerides since 2018, and it has been consistently. We will continue with the same management for now. She has been getting treatment with Repatha. I think these should be given every 2 weeks, and I think it she is due for that. We will try to contact her provider to find out. 3. Pseudohyponatremia, likely secondary to elevated triglyceride level, improved. 4. Mild acute kidney injury, creatinine increased a little bit. BUN within normal limits, but the urine output dropped. She had an output of 250 mL in 8 hours. There is a high possibility of having kidney dysfunction on this patient given her severe pancreatitis. I have requested an evaluation by the Nephrology Department just to keep an eye on this patient and suggestions. 5. History of coronary artery disease, status post CABG and multiple stents aware. Cardiology Department on board. 6. History of congestive heart failure with an ejection fraction of 45% 45% aware. Cardiology Department evaluated this patient yesterday, and I personally talked to Dr. Sawyer about this patient. He suggested to continue with treatment and give her fluids since pancreatitis has an elevated rate of mortality. He does not feel that the pain is coming from the heart, likely from the pancreatitis. 7. Chest pain. Cardiology on board. She is not complaining of chest pain today. 8. Shortness of breath during the night. She has been placed on nasal cannula. It looks like she uses a CPAP machine during the night so probably we can use a BiPAP machine during this hospitalization. She has some rales at the bases likely because of the fluids. We will continue to monitor. X-ray is pending at this moment. 9. Insulin-dependent diabetes mellitus. She is still on the insulin drip. We will monitor. 10. Hypothyroidism. We will continue with levothyroxine IV. Her TSH level is elevated, and apparently at some point in the past she stopped taking the levothyroxine so we will put her back on her previous medication. 11. History of multiple sclerosis. She continues in remission. 12. Hypertension, stable. 13. Seizure disorder. Aware. 14. History of nephrolithiasis aware. 15. Overall, this patient feels a little bit better compared with yesterday, but I do believe she is still showing signs of pancreatitis and decompensation. She has mild increase of the creatinine, and decrease of the urine output even though she has been receiving fluids, probably this will get better, but I will get Nephrology Department to keep an eye on her. CRITICAL CARE TIME: 35 minutes. cc: Neymar Livingston MD
--- NOTE | 2018-11-30 08:05 | EKG Report ---
Test Performed on : 11/30/2018 07:35:54 AM Test Reason : chest pain Blood Pressure : / mmHG Vent. Rate : 085 BPM Atrial Rate : 085 BPM P-R Int : 168 ms QRS Dur : 090 ms QT Int : 404 ms P-R-T Axes : 035 009 122 degrees QTc Int : 480 ms Normal sinus rhythm. Left ventricular hypertrophy with repolarization abnormality Possible Inferior infarct (cited on or before 29-NOV-2018) Abnormal ECG When compared with ECG of 29-NOV-2018 10:47, (Unconfirmed) premature ventricular complexes. are no longer present ST now depressed in Anterior leads Confirmed by Nestor WADSWORTH, Judson Vallecillo ([id number]) on 11/30/2018 10:23:58 AM
[2018-11-30] MEDS: D5 NS IV SCH (08:19)
[2018-11-30] MEDS: POTASSIUM CHLORIDE IV SCH (08:19)
[2018-11-30] MEDS: COREG PO SCH ×2 (08:21→22:17)
[2018-11-30] MEDS: PRILOSEC PO SCH (08:21)
[2018-11-30] MEDS: BRILINTA PO SCH ×2 (08:22→22:17)
[2018-11-30] MEDS: IMDUR PO SCH (08:22)
[2018-11-30] MEDS: ASPIRIN EC PO SCH (08:22)
[2018-11-30] MEDS: LR 1,000 ML IV SCH ×2 (09:01→20:30)
--- NOTE | 2018-11-30 09:13 | NEPHROLOGY CONSULTATION ---
DATE: 11/30/2018 REASON FOR ADMISSION: Chest pain. REASON FOR REQUEST: Acute kidney injury with decreased urinary output. CONSULTING PHYSICIAN: Dr. Livingston. HISTORY OF PRESENT ILLNESS: Ms. Birmingham is a 63-year-old white female who has a large cardiac history with known chronic kidney disease stage 3, followed by Dr. Gomez in [place]. The patient states that last week she was told that her creatinine was slightly elevated. At that time she did not feel that she had any decreased urinary output. During her hospital workup, she has been found to have Cardiology on board with a history of coronary artery disease and status post bypass grafting with multiple cardiac stents. She has also had GI on board with acute pancreatitis. She currently has polydipsia. Chest pain has improved. No increased work of breathing. Abdomen is tender. Complains of nausea, minimal emesis during her hospital stay. No diarrhea. She gets diaphoretic at times. She does have chronic back pain. No lower extremity edema present. Able to move all extremities well and assist with her exam. PAST MEDICAL HISTORY: Coronary artery disease with status post coronary artery bypass graft in 2008. Multiple cardiac catheterizations with previous stents, known hypertension, coronary artery disease, history of premature ventricular beats, severe hypertriglyceridemia, diabetes mellitus type 2, hyperlipidemia, multiple sclerosis, hypothyroidism, nephrolithiasis, chronic kidney disease stage 3, sleep apnea, seizure disorder. SOCIAL HISTORY: She has family who are attentive to her care. Denies tobacco, alcohol or illicit drug use. FAMILY HISTORY: Positive for early-onset coronary artery disease. Negative for kidney disease. ALLERGIES: Listed as no known drug allergies. HOME MEDICATIONS: Aspirin, atorvastatin, fenofibrate, hydralazine, isosorbide, nortriptyline, phenytoin, Mirapex, Lyrica, sertraline, Brilinta, clonazepam, spironolactone, Zanaflex, insulin as directed with vitamin D and Lovaza. REVIEW OF SYSTEMS: Review of systems x10 with pertinent positives listed above in the HPI. DATA: Her most recent vital signs show her last temperature is 99.4 degrees, blood pressure 145/68, heart rate respirations are 18. She is currently on 2 L nasal cannula. Last recorded saturation is 95%. She has had 3292 in. She has had 1250 out with total void and Green catheter combination in the last 24 hours. Her most recent labs: Sodium is 139, potassium 3.1, chloride 102, CO2 26, BUN 9, creatinine 1, glucose 63. Anion gap 11, calcium 8.1, magnesium 1.6, albumin 3.2. White count 7.86, hemoglobin 8.8, hematocrit 26.7 with a platelet count of 109,000. The patient's triglycerides were 4425 last drawn, cholesterol 462. Her LDL last drawn 655. Her HDL is less than 3 and up to 7. The patient had a TSH checked that showed 10.9. Her amylase was 1446. Her lipase was 2136. The patient's total bilirubin is less than 0.15, direct bilirubin 0.20, AST less than 5, ALT less than 5, alkaline phosphatase 43. PHYSICAL EXAM: General: This is a 63-year-old white female resting quietly in bed. She is in no acute distress. Skin: Warm and dry. HEENT: Normocephalic, atraumatic. Conjunctiva is pale pink. She has NICHOLE. Mucous membranes are dry. Neck: Supple. Trachea midline. There is no evidence of JVD. Cardiovascular: She is regular rate and rhythm. No murmur or gallop were appreciated. Lungs: Clear to auscultation bilaterally. Equal excursion on O2. Abdomen: Soft. She has epigastric tenderness to palpation. Audible bowel sounds. There is slight guarding upon palpation. Genitourinary: Green catheter is in place with adequate urine output present. Extremities: Have no edema. No clubbing or cyanosis. Neurological: Alert and oriented x3. ASSESSMENT AND PLAN: 1. Acute kidney injury on chronic kidney disease stage 3. Patient's creatinine is down to 1 today, has been at 0.8 during her hospital stay. Her estimated GFR is 56%. Her urine output has improved after placement of Green catheter. She continues to receive IV fluid resuscitation. She has a CT of the abdomen and pelvis that was completed with IV contrast showing acute pancreatitis. There is no indications for intervention at this time. We will sign off and remain available if needed for further consult during her hospital stay. 2. Electrolytes, acid-base balance, and anemia. These are acceptable. 3. Acute pancreatitis. This is followed by Gastroenterology and Primary Care. 4. History of acute pancreatitis with a history of coronary artery disease. This is followed by Cardiology. I would like to thank you for allowing us to follow with this pleasant patient. Dictated by BEHZAD Chambers for Chema Masters MD cc: BEHZAD Chambers MD [facility]
[2018-11-30 10:54] LABS: UR CREAT RANDOM 156.4 mg/dL (11-20)
[2018-11-30] MEDS: TYLENOL PO PRN ×2 (15:52→22:30)
[2018-11-30] MEDS: PAMELOR PO SCH (22:17)
[2018-11-30] MEDS: DILANTIN PO SCH (22:17)
--- NOTE | 2018-11-30 23:20 | PROVIDER PROGRESS NOTE ---
Progress Note SUBJECTIVE: No acute overnight events. Febrile overnight. No N/V, CP, SOB. Abdominal pain improving. 12/26 today. No bowel movement. She reports having some appetite. On insulin drip. OBJECTIVE: Last Vital Signs Temp 99.7 F H 11/30/18 19:35 Pulse 87 11/30/18 22:01 Resp 29 H 11/30/18 22:01 BP 131/63 11/30/18 22:01 Pulse Ox 95 11/30/18 22:01 Height 5 ft 1 in Weight 129 lb GEN: awake, alert, NAD HEENT: anicteric, MMM, EOMI NECK: supple, no JVD PULM: CTAB, no wheezing ABD: ND, mild TTP throughout, no rebound, BS present EXT: no cce NEURO: nonfocal LABS: 11/30/18 11/30/18 11/30/18 05:52 05:52 05:52 WBC 7.86 Hgb 8.8 L D Plt Count 109 L Sodium 139 Potassium 3.1 L D Chloride 102 Carbon Dioxide 26 BUN 9 Creatinine 1.0 H Glucose 63 L D Calculated Osmolality 274 Triglycerides 2006 H Cholesterol 462 H ASSESSMENT AND PLAN: Ms. Analilia Birmingham is a 63 year old woman with HTN, HLD, probable familial hypertriglyceridemia, IDDM2, CAD s/p [place] and CABGxv3 and stents, systolic CHF with EF 45%, AAA repair, hypothyroidism, depression/anxiety, chronic anemia, MS, gastroparesis, GERD, colonic polyps, and PVD who presented from outside hospital for worsening substernal chest pain found to have uncomplicated acute pancreatitis. Labs notable for hyponatremia, low bicarb, hyperglycemia, anemia, thrombocytopenia, and severely elevated TGs. #Acute pancreatitis: improving - start clear liquid diet; IVFs, analgesics, antiemetics prn - serial abdominal exams - trend I/O - no need to trend lipase as it does not correlate to symptoms of worsening on imaging #Fever: likely from pancreatitis: would hold off on antibiotics at this time #Hypertriglyceridemia: improving; on insulin gtt, give repatha today; check TG daily #Chest pain/CAD: chest pain resolved; mild troponin leak likely demand; continue home meds; cardiology following #IDDM2: SSI; glucose control #GERD: continue PPI #Hyponatremia: resolved #Low bicarbonate: IVFs as above #Anemia: no overt GI bleeding #Thrombocytopenia: unclear etiology; no Hx of cirrhosis or signs of splenomegaly on imaging; may need hematology evaluation Thank you for this consult. Will follow with you.
[2018-12-01] MEDS: D50W SYRINGE IV SCH ×5 (02:04→16:32)
[2018-12-01] MEDS: HUMULIN R 100 UNIT in NS 100 ML IV SCH ×2 (03:24→15:29)
[2018-12-01] MEDS: D5 NS IV SCH ×2 (03:27→11:46)
[2018-12-01] MEDS: POTASSIUM CHLORIDE IV SCH ×2 (03:27→11:46)
[2018-12-01] MEDS: MORPHINE IV PRN ×4 (05:23→21:07)
[2018-12-01] MEDS: LR 1,000 ML IV SCH (05:23)
[2018-12-01] MEDS: TYLENOL PO PRN (05:31)
--- NOTE | 2018-12-01 07:23 | Diag Imaging Result Doc PS360 ---
EXAM: CHEST-PORTABLE INDICATION: dyspnea TECHNIQUE: One view COMPARISON: 11/30/2018 FINDINGS: Pulmonary venous congestion and mild interstitial edema has continued to worsen slightly previous study. No other new consolidation is identified. Cardiac silhouette is stable. IMPRESSION: Interval slight worsening of pulmonary venous congestion and interstitial edema. Electronically signed by Rolly Pierce 12/01/2018 7:20 AM
[2018-12-01 07:52] LABS: AGAP 9; ALB/GLOB RATIO 1.5; ALBUMIN 2.9 g/dL (3.5-5.0); ALKALINE PHOSPHATASE 44 U/L (32-104); BUN 5 mg/dL (8-22); CALCIUM 7.1 mg/dL (8.8-10.2); CHLORIDE 109 mmol/L (98-107); COSMO 278; CREATININE 0.8 mg/dL (0.5-0.9); ESTIMATED GFR > 60; GLUCOSE 90 mg/dL (70-104); GOT 147 U/L (10-30); GPT 105 U/L (10-36); POTASSIUM 3.6 mmol/L (3.5-5.1); SODIUM 141 mmol/L (136-145); TCO2 23 mmol/L (25-35); TOTAL BILIRUBIN 0.29 mg/dL (0.20-1.00); TOTAL PROTEIN 4.9 g/dL (6.3-8.3)
[2018-12-01 07:57] LABS: CHOLESTEROL 327 mg/dL (0-200); HDL 27 mg/dL (45-65); TRIGLYCERIDES 625 mg/dL (35-135)
[2018-12-01] MEDS ORDERED: PATIENT'S OWN MED SUBQ SCH (08:00)
[2018-12-01 08:19] LABS: BASO# 0.02 X1000 (0.0-0.2); BASO% 0.3 % (0.0-0.8); EOS# 0.11 X1000 (0.0-0.7); EOS% 1.4 % (0.0-10.0); HEMATOCRIT 22.6 % (37.0-47.0); HEMOGLOBIN 7.2 g/dL (12.0-16.0); IMM GRAN# 0.02 X1000 (0.0-0.04); IMM GRAN% 0.3 % (0.0-0.5); LYMPH# 0.84 X1000 (1.2-3.4); LYMPH% 10.6 % (20.5-51.1); MCH 30.3 PG (27-31); MCHC 31.9 g/dL (33-37); MONO# 0.75 X1000 (0.11-0.59); MONO% 9.4 % (1.7-9.3); PLT 109 X1000 (130-400); RBC 2.38 XMIL (4.2-5.4); RDW 13.6 % (11.5-14.5); WBC 7.94 X1000 (4.8-10.8)
[2018-12-01] MEDS: ASPIRIN EC PO SCH (09:19)
[2018-12-01] MEDS: SYNTHROID IV SCH (09:19)
[2018-12-01] MEDS: COREG PO SCH ×2 (09:20→20:58)
[2018-12-01] MEDS: PRILOSEC PO SCH (09:20)
[2018-12-01] MEDS: BRILINTA PO SCH ×2 (09:20→20:58)
[2018-12-01] MEDS: IMDUR PO SCH (09:20)
[2018-12-01] MEDS ORDERED: LR 1,000 ML IV SCH (11:05)
[2018-12-01] MEDS ORDERED: LASIX IV ONE ×2 (11:07→17:35)
[2018-12-01] MEDS: ZOFRAN IV PRN ×3 (11:45→21:07)
--- NOTE | 2018-12-01 12:01 | PROGRESS NOTE ---
DATE: 12/01/2018 SUBJECTIVE: This patient is lying comfortably in bed. She is still complaining of abdominal pain, but compared with the previous days, is much better. She has been tolerating a little bit of ice chips and sip of water. We have an x-ray that showed pulmonary edema, and she has been requiring oxygen now, so I discussed the case with Cardiology Department, Dr. Sawyer, and we will decrease a little bit the rate of the fluids. She will receive now 75 mL/h, which will be normal saline and D5 since this patient is getting an insulin drip. Her hemoglobin also dropped to 7.2. She will receive a unit of PRBC. Also, we will start this patient on Lasix twice a day, 40 mg IV. Again, the patient's case has been discussed with Cardiology Department. OBJECTIVE: Vital Signs: Temperature 98.6 degrees, pulse 74, respiratory rate 20, blood pressure 125/67, oxygen saturation 98 on 3 L of nasal cannula. HEENT: Head normocephalic. No trauma. PERRLA. Neck: Supple. No JVD. No masses. Central trachea. Chest: Decreased breath sounds at the bases with some rales at the bases as well. Abdomen: Soft. Tenderness to palpation at the level of the epigastric area and periumbilical area. No signs of peritoneal irritation. Positive bowel sounds. Extremities: Trace edema. No clubbing, no cyanosis. Neurological: The patient is alert and oriented x3. No focal neurological deficits. LABORATORY DATA: WBC 7.9, hemoglobin 7.2, hematocrit 22.6. Sodium 141, potassium 3.6, chloride 109, bicarbonate 23, BUN 5, creatinine 0.8, glucose 90, calcium 7.1. AST 147, ALT 105, alkaline phosphatase 44, albumin 2.9. Triglyceride level 625, cholesterol 327. ASSESSMENT AND PLAN: 1. Acute pancreatitis secondary to hypertriglyceridemia. Continue with intravenous fluids, which I have decreased. She will receive D5 normal saline at 75 mL/h. She has been getting an insulin drip. The reason why we decreased the intravenous fluids is because she has congestive heart failure, and now it looks like she is in exacerbation and pulmonary edema. I discussed the case with Cardiology Department. We agreed to decrease the rate of the intravenous fluids, and put her on Lasix as well to see if that helps. Kidney function seems to be doing better. 2. Severe triglyceridemia. Continue with insulin drip. She seems to be doing better. Triglyceride level today is around 625, and upon admission, it was higher than 4425. 3. Pseudohyponatremia, likely secondary to hypertriglyceridemia, resolved. 4. Mild acute kidney injury. It looks like the kidney function is better now. We will keep an eye on that. We have started this patient today on Lasix due to her fluid overload. 5. Fluid overload in a patient with congestive heart failure. Ejection fraction 45%. We have decreased the rate of the intravenous fluids. We have placed this patient on Lasix twice a day. Since she has a history of myocardial myopathy and the hemoglobin is 7.2, we will transfuse this patient also with 1 unit of packed red blood cells. Case discussed with Dr. Sawyer. 6. History of coronary artery disease, status post coronary artery bypass graft and multiple stents. Aware. She will receive 1 unit of packed red blood cells. 7. Anemia. As above. 8. Shortness of breath, likely secondary to fluid overload. We will decrease the rate. We will put this patient on Lasix twice a day. We will monitor this patient closely. 9. Type 2 diabetes. Continue with insulin drip. Will monitor. 10. Hypothyroidism. Continue with intravenous levothyroxine. 11. History of multiple sclerosis. She continues in remission. 12. Hypertension. Stable. 13. Seizure disorder. Aware. 14. History of nephrolithiasis. Aware. CRITICAL CARE TIME: 40 minutes. cc: Neymar Livingston MD
--- NOTE | 2018-12-01 13:59 | CARDIOLOGY PROGRESS NOTE ---
DATE: 12/01/2018 PROBLEM LIST: 1. Acute pancreatitis secondary to severe hypertriglyceridemia. Patient is receiving intravenous fluids at a rate of 150 mL per minute and she is on an insulin pump which has drastically decreased her triglyceridemia from 4000 to 653. 2. Severe aggressive coronary artery disease, status post coronary artery bypass grafting, and multiple interventions in 2017 and August 2018. 3. Chest pain, suggestive of angina. 4. Recent congestive heart failure. Overnight, given her intravenous fluids. 5. Anemia. 6. Pseudohyponatremia. Patient complained of shortness of breath. Chest x-ray revealed heart failure, pulmonary edema. PHYSICAL EXAMINATION: Vital Signs: Blood pressure 134/70. Bibasilar inspiratory crepitations were noted. There was no S3 gallop. Respiratory System: Examination revealed as above. Cardiovascular System: First and second heart sounds were heard. There was no S3 gallop. Abdomen was soft. There was epigastric tenderness. LABORATORY EXAMINATION: Revealed WBC 2.38, hemoglobin 7.2, hematocrit 22, platelet count of 109,000. Hemoglobin decreased from 11.6. Hematocrit decreased from 29.6. Chemistry: Sodium 141, potassium 3.6, BUN 5, creatinine 0.8. Triglycerides today 625. RECOMMENDATIONS: 1. Heart failure secondary to severe fluid overload which is being given for her acute pancreatitis treatment. Would recommend decreasing the IV fluids to 75 mL an hour. We will start her on Lasix 40 mg IV twice daily. 2. She is anemic. No obvious GI bleed. We will transfuse her with 1 unit of packed red cells and given extra dose of 40 Lasix for the same. 3. We will get a limited echocardiogram to reassess her valvular function. 4. She has had chest pains today as well, retrosternal. She is very tenuous as far as ischemia is concerned. Cardiac enzyme was negative. We will continue with all her medications as far as cardiac medications are concerned including aspirin and Brilinta. She received morphine for the chest pain which has abated her symptoms. 5. For diabetes, she is on an insulin drip. Of note is that given her insulin infusion, her triglycerides were down to being normal. However, she does take insulin at home and I do not have an opinion as to whether or not she would benefit from a continuous insulin therapy with insulin pump to treat her but I will have her discuss this with her computer science teacher post discharge, either with Dr. Escalante in [place] or to the [facility] which she goes to for treatment as well. 6. Coronary artery disease, coronary artery bypass grafting, with multiple coronary interventions in the past. Thank you. We will follow hospital course. cc: Basil Sawyer MD
[2018-12-01] MEDS ORDERED: NS 500 ML ONE (14:31)
[2018-12-01] MEDS: KLONOPIN PO PRN (17:30)
--- NOTE | 2018-12-01 17:52 | ECHO REPORT ---
ORDER DATE: 12/01/2018 INDICATION FOR STUDY: Coronary disease. FINDINGS: 1. The right atrium is mildly enlarged at 4.5 cm. 2. Moderate tricuspid regurgitation. RV systolic pressure of 54. 3. Normal RV size and systolic function. 4. Trace pulmonic insufficiency. 5. Mild left atrial enlargement at 4.2 cm. 6. No mitral valve prolapse. Mild mitral regurgitation. 7. Dilated left ventricle with an end-diastolic dimension of 5.9. Mild left ventricular hypertrophy with a posterior and interventricular septal wall thickness 1.1 and 1.2 cm respectively. There is a reduction in LV systolic function with an estimated EF of 40%. On some views, there does appear to be some hypokinesis of the inferior and inferior septum. 8. Aortic valve opens well. It is trileaflet. Trace insufficiency. No stenosis. 9. The aorta appears normal in visualized segments. 10. No pericardial effusion is identified. cc: MD Basil Barnhart MD
[2018-12-01] MEDS: LASIX IV SCH (19:30)
[2018-12-01] MEDS: PAMELOR PO SCH (20:57)
[2018-12-01] MEDS: DILANTIN PO SCH (20:58)
[2018-12-02] MEDS: D50W SYRINGE IV SCH ×4 (00:07→08:21)
[2018-12-02] MEDS: POTASSIUM CHLORIDE IV SCH (01:00)
[2018-12-02] MEDS: D5 NS IV SCH (01:00)
[2018-12-02] MEDS: MORPHINE IV PRN ×4 (02:24→21:12)
[2018-12-02 05:50] LABS: BASO# 0.03 X1000 (0.0-0.2); BASO% 0.4 % (0.0-0.8); EOS# 0.19 X1000 (0.0-0.7); EOS% 2.3 % (0.0-10.0); HEMATOCRIT 25.4 % (37.0-47.0); HEMOGLOBIN 8.5 g/dL (12.0-16.0); IMM GRAN# 0.05 X1000 (0.0-0.04); IMM GRAN% 0.6 % (0.0-0.5); LYMPH# 1.11 X1000 (1.2-3.4); LYMPH% 13.3 % (20.5-51.1); MCH 30.4 PG (27-31); MCHC 33.5 g/dL (33-37); MCV 90.7 FL (81-99); MONO# 0.83 X1000 (0.11-0.59); MONO% 9.9 % (1.7-9.3); MPV 11.4 FL (7.4-10.4); NEUT# 6.15 X1000 (1.4-6.5); NEUT% 73.5 % (42.2-75.2); PLT 136 X1000 (130-400); RDW 14.7 % (11.5-14.5); WBC 8.36 X1000 (4.8-10.8)
[2018-12-02 06:03] LABS: ALBUMIN 2.9 g/dL (3.5-5.0); CALCIUM 7.6 mg/dL (8.8-10.2); POTASSIUM 3.4 mmol/L (3.5-5.1); TOTAL BILIRUBIN 0.26 mg/dL (0.20-1.00); TOTAL PROTEIN 5.8 g/dL (6.3-8.3)
[2018-12-02 06:15] LABS: CHOLESTEROL 326 mg/dL (0-200); HDL 27 mg/dL (45-65); TRIGLYCERIDES 438 mg/dL (35-135)
[2018-12-02] MEDS: SYNTHROID IV SCH (06:49)
--- NOTE | 2018-12-02 07:27 | Diag Imaging Result Doc PS360 ---
EXAM: CHEST-PORTABLE INDICATION: dyspnea TECHNIQUE: One view COMPARISON: 12/01/2018 FINDINGS: Inspiration is suboptimal. Pulmonary venous congestion and interstitial edema are approximately stable. No new consolidation is identified. Cardiac silhouette is stable. IMPRESSION: Slightly lower lung volumes. Stable chest, otherwise. Electronically signed by Rolly Pierce 12/02/2018 7:25 AM
[2018-12-02] MEDS ORDERED: NS 1,000 ML IV SCH (07:45)
[2018-12-02] MEDS: NS + KCL 20 MEQ 1,000 ML IV SCH ×2 (08:18→21:08)
[2018-12-02] MEDS: BRILINTA PO SCH ×2 (08:19→21:12)
[2018-12-02] MEDS: COREG PO SCH ×2 (08:19→21:11)
[2018-12-02] MEDS: ASPIRIN EC PO SCH (08:19)
[2018-12-02] MEDS: LASIX IV SCH ×3 (08:19→21:08)
[2018-12-02] MEDS: IMDUR PO SCH (08:20)
[2018-12-02] MEDS: PRILOSEC PO SCH (08:20)
[2018-12-02] MEDS: FISH OIL CONCENTRATE PO SCH ×2 (08:21→21:12)
[2018-12-02] MEDS: LOFIBRA PO SCH (08:28)
--- NOTE | 2018-12-02 08:49 | PROGRESS NOTE ---
DATE: 12/02/2018 SUBJECTIVE: This patient is lying comfortably in bed. She is complaining of abdominal soreness but the pain is much better. She has been tolerating a liquid diet. I will continue with that. I will stop the insulin drip since her triglyceride level is below 500. I will put her on fenofibrate and [place] 3/[place] 6/[place] 9 fatty acids, which is her home medications. Also, she received a dose of Repatha yesterday. Her abdomen is a little bit distended. She does have some bowel sounds. She has been passing gas a little bit. She is breathing better since she has been getting diuretics. We have a negative balance of 1.7 L, but her urine output was around 5.3 L in 24 hours. I will stop the D5NS, and I will put her on NS with potassium since her potassium level is slightly low. Hemoglobin improved after 1 PRBC. Cardiology and Gastroenterology Department on board. OBJECTIVE: Vital Signs: Temperature 99 degrees, pulse 72, respiratory rate 20, blood pressure 131/74, and oxygen saturation 96 on 3 L of nasal cannula. HEENT: Head normocephalic. No trauma. PERRLA. Neck: Supple. No JVD. No masses. Central trachea. Chest: Decreased breath sounds mostly at the bases with some rales at the bases as well. Abdomen: Soft. Tender to palpation at the level of the epigastric area and periumbilical area. No signs of peritoneal irritation. Positive bowel sounds. Extremities: Trace pedal edema. No clubbing. No cyanosis. Neurological: The patient is alert and oriented x3. No focal neurological deficits. LABORATORY: WBC 8.3, hemoglobin 8.5, hematocrit 25.4, and platelets 136,000. Sodium 142, potassium 3.4, chloride 106, bicarbonate 25, BUN 6, creatinine 1, glucose 126, calcium 7.6, AST 55, ALT 78, alkaline phosphatase 47, albumin 2.9, triglycerides 438, and cholesterol 326. ASSESSMENT AND PLAN: 1. Acute pancreatitis secondary to hypertriglyceridemia. I will continue with IV fluids since the triglyceride level is below 500. I will stop the insulin drip, and I will put her on normal saline with some potassium since her potassium is low as well. I am not going to be aggressive with IV fluids at this moment because she is having signs of CHF and pulmonary edema. She seems to be doing better after placing this patient on Lasix as well. Gastroenterology Department on board. She has been placed on a liquid diet. We will continue to monitor. 2. Severe hypertriglyceridemia as above. I have placed this patient back on her home medications, and also she received a dose of Repatha yesterday. 3. Pseudohyponatremia, likely secondary to hypertriglyceridemia, resolved. 4. Acute kidney injury. She has been having good urine output, and she is responding nicely with furosemide. We will keep an eye on this. Creatinine increased a little bit compared with yesterday. BUN is stable. 5. Fluid overload in a patient with CHF. Ejection fraction on a new echocardiogram is around 40%. Yesterday, we decreased the rate of the IV fluids and we put this patient on Lasix twice a day as recommended by the Cardiology Department. 6. Anemia, status post 1 PRBC. Hemoglobin improved from 7.2 to 8.5. We will continue with the same management. 7. History of coronary artery disease stable. No chest pain. 8. Shortness of breath, likely secondary to fluid overload. Continue with same management. 9. Type 2 diabetes. I will stop the insulin drip. I will put this patient on pattern of blood sugar and sliding scale insulin. We will monitor. 10. Hypothyroidism. Continue with IV levothyroxine for now. 11. History of multiple sclerosis. Aware. She continues in remission. 12. Hypertension, stable. 13. Seizure disorder aware. 14. History of nephrolithiasis. Aware. 15. Hypokalemia. I will add potassium to her IV fluids. 16. Elevated LFT's likely secondary to hepatic congestion due to fluid overload/CHF, better compared with yesterday. Continue to monitor. CRITICAL CARE TIME: 35 minutes. cc: Neymar Livingston MD
[2018-12-02] MEDS ORDERED: VITAMIN D PO SCH (09:00)
[2018-12-02] MEDS: HUMULIN R SUBQ SCH ×3 (10:27→21:09)
[2018-12-02] MEDS: ZOFRAN IV PRN ×2 (14:04→21:12)
[2018-12-02] MEDS: PAMELOR PO SCH (21:10)
[2018-12-02] MEDS: KLONOPIN PO PRN (21:11)
[2018-12-02] MEDS: DILANTIN PO SCH (21:12)
[2018-12-03] MEDS: SYNTHROID IV SCH (06:02)
[2018-12-03 06:11] LABS: BASO# 0.03 X1000 (0.0-0.2); BASO% 0.4 % (0.0-0.8); EOS# 0.11 X1000 (0.0-0.7); EOS% 1.6 % (0.0-10.0); HEMATOCRIT 26.9 % (37.0-47.0); HEMOGLOBIN 8.8 g/dL (12.0-16.0); IMM GRAN# 0.03 X1000 (0.0-0.04); IMM GRAN% 0.4 % (0.0-0.5); LYMPH# 0.85 X1000 (1.2-3.4); LYMPH% 12.6 % (20.5-51.1); MCH 30.4 PG (27-31); MCHC 32.7 g/dL (33-37); MCV 93.1 FL (81-99); MONO# 0.65 X1000 (0.11-0.59); MONO% 9.7 % (1.7-9.3); MPV 11.2 FL (7.4-10.4); NEUT# 5.05 X1000 (1.4-6.5); NEUT% 75.3 % (42.2-75.2); PLT 170 X1000 (130-400); RBC 2.89 XMIL (4.2-5.4); RDW 14.9 % (11.5-14.5); WBC 6.72 X1000 (4.8-10.8)
[2018-12-03] MEDS: HUMULIN R SUBQ SCH ×4 (06:19→22:03)
[2018-12-03 06:50] LABS: AGAP 14; ALB/GLOB RATIO 0.8; ALBUMIN 2.8 g/dL (3.5-5.0); ALKALINE PHOSPHATASE 55 U/L (32-104); BUN 11 mg/dL (8-22); CALCIUM 8.1 mg/dL (8.8-10.2); CHLORIDE 104 mmol/L (98-107); CHOLESTEROL 377 mg/dL (0-200); COSMO 278; ESTIMATED GFR 56; GLUCOSE 155 mg/dL (70-104); GOT 19 U/L (10-30); GPT 51 U/L (10-36); HDL 19 mg/dL (45-65); SODIUM 138 mmol/L (136-145); TCO2 20 mmol/L (25-35); TOTAL BILIRUBIN 0.23 mg/dL (0.20-1.00); TOTAL PROTEIN 6.2 g/dL (6.3-8.3); TRIGLYCERIDES 539 mg/dL (35-135)
--- NOTE | 2018-12-03 07:12 | Diag Imaging Result Doc PS360 ---
EXAM: CHEST-PORTABLE 12/03/2018 HISTORY: dyspnea TECHNIQUE: AP portable at 0526 COMMENT: Compared to 12/02/2018 the lungs are better expanded, there is less interstitial opacity and the obscuration of the left hemidiaphragm which was present previously has improved. IMPRESSION: Improved pulmonary edema and left lower lobe atelectasis. Electronically signed by Petey Hill 12/03/2018 7:10 AM
[2018-12-03] MEDS: LOFIBRA PO SCH (08:30)
[2018-12-03] MEDS: FISH OIL CONCENTRATE PO SCH ×2 (08:30→21:54)
[2018-12-03] MEDS: PRILOSEC PO SCH (08:31)
[2018-12-03] MEDS: IMDUR PO SCH (08:31)
[2018-12-03] MEDS: LASIX IV SCH (08:31)
[2018-12-03] MEDS: COREG PO SCH ×2 (08:31→21:55)
[2018-12-03] MEDS: ASPIRIN EC PO SCH (08:31)
[2018-12-03] MEDS: BRILINTA PO SCH ×2 (08:31→21:55)
[2018-12-03] MEDS: MORPHINE IV PRN ×2 (08:40→21:54)
[2018-12-03] MEDS ORDERED: NS + KCL 20 MEQ 1,000 ML IV SCH (08:49)
[2018-12-03] MEDS ORDERED: LASIX IV SCH (09:00)
[2018-12-03] MEDS: MIRALAX PO SCH (10:02)
--- NOTE | 2018-12-03 16:13 | PROVIDER PROGRESS NOTE ---
Progress Note SUBJECTIVE: No N/V/F, CP, SOB. She has minimal abdominal discomfort. She is tolerating cardiac diet. She is off insulin drip OBJECTIVE: Last Vital Signs Temp 98 F 12/03/18 11:51 Pulse 71 12/03/18 11:51 Resp 16 12/03/18 11:51 BP 137/69 12/03/18 11:51 Pulse Ox 99 12/03/18 11:51 Height 5 ft 1 in Weight 129 lb GEN: awake, alert, NAD HEENT: anicteric, MMM NECK: supple, no jvd CV: RRR, no murmurs PULM: CTA anteriorly ABD: soft ND, minimally TTP in epigastric area, BS present EXT: no cce NEURO: nonfocal LABS: 12/03/18 12/03/18 05:53 05:53 WBC 6.72 Hgb 8.8 L MCV 93.1 Plt Count 170 Sodium 138 Potassium 4.0 D Chloride 104 Carbon Dioxide 20 L BUN 11 D Creatinine 1.0 H Glucose 155 H Total Bilirubin 0.23 AST 19 ALT 51 H Alkaline Phosphatase 55 Total Protein 6.2 L Albumin 2.8 L Triglycerides 539 H Cholesterol 377 H A/: Ms. Analilia Birmingham is a 63 year old woman with HTN, HLD, probable familial hypertriglyceridemia, IDDM2, CAD s/p IN and CABGxv3 and stents, systolic CHF with EF 40%, AAA repair, hypothyroidism, depression/anxiety, chronic anemia, MS, gastroparesis, GERD, colonic polyps, and PVD who presented from outside hospital for worsening substernal chest pain found to have uncomplicated acute pancreatitis. Initial labs showed pseudohyponatremia, low bicarb, hyperglycemia, anemia, thrombocytopenia, and severely elevated TGs. Her symptoms have improved significantly with supportive care, insulin drip, and IVFs. #Acute pancreatitis: 2/2 to elevated TG; resolving - continue cardiac diet; analgesics, antiemetics prn - no need to trend lipase as it does not correlate to symptoms of worsening on imaging #Hypertriglyceridemia: improving; s/p insulin gtt and repatha; check TG daily #Chest pain/CAD: chest pain resolved; cardiology following #IDDM2: SSI; glucose control #GERD: continue PPI #Hyponatremia: resolved #Anemia: no overt GI bleeding #Thrombocytopenia: resolved Will sign off. Patient should follow-up with her primary GI. Please call with questions
--- NOTE | 2018-12-03 19:49 | PROGRESS NOTE ---
DATE: 12/03/2018 SUBJECTIVE: This patient is lying comfortably in bed, her abdomen is sore but is better, she has not had any kind of pain medications since yesterday night, she has been tolerating p.o. and she started having bowel movement since yesterday, but she feels constipated so I will add MiraLAX to her medications, normally she is on 40 mg of Lasix at home, I will decrease the dose of Lasix from 40 twice a day to 40 daily but I will decrease the rate of the IV fluids as well. We have been having negative balance for the past 2 days. I think she is stable enough to go to the floor and I will continue to monitor this patient closely. OBJECTIVE: Vital Signs: Temperature 98.6 degrees, pulse 74, respiratory rate 20, blood pressure 166/82, oxygen saturation 97% on 3 L of nasal cannula. HEENT: Head normocephalic, no trauma, PERRLA. Neck: Supple. No JVD. No masses. Central trachea. Chest: Decreased breath sounds at the bases with some rales at the bases as well. Abdomen: Soft, tender to palpation at the level of the epigastric and periumbilical area. No signs of peritoneal irritation. It is slightly distended. Positive bowel sounds. Extremities: Trace pedal edema. No clubbing. No cyanosis. Neurological: The patient is alert and oriented x3. No focal neurological deficits. LABORATORY: WBC 6.7, hemoglobin 8.8, hematocrit 26.9, platelets 170,000, sodium 138, potassium 4, chloride 104, bicarbonate 20, BUN 11, creatinine 1, glucose 155, calcium 8.1, AST 19, ALT 51, alkaline phosphatase 55, albumin 2.8. ASSESSMENT AND PLAN: 1. Acute pancreatitis secondary to hypertriglyceridemia, continue with IV fluids, but I will decrease the rate since she is getting better. She is tolerating p.o. I already stopped the insulin drip yesterday, and due to her signs of congestive heart failure exacerbation, I will continue with Lasix but I will put her on her home dose and I will monitor this closely. 2. Severe hypertriglyceridemia, as above. I placed this patient back on her home medications. Also, she received a dose of Repatha 2 days ago. 3. Pseudohyponatremia, likely secondary to hypertriglyceridemia, resolved. 4. Acute kidney injury. She has been having good urine output and she is responding really well to furosemide. We have been having negative balance for the past 2 days. I will monitor. 5. Fluid overload with CHF exacerbation, ejection fraction on a new echocardiogram is around 40%, yesterday we decreased the rate of the IV fluid and today I will decrease it even more. She was getting Lasix twice a day. I will put it once a day since clinically she is improving and actually the x-ray showed an improved pulmonary edema and left lower lobe atelectasis. 6. Anemia, status post one PRBC. Hemoglobin has been stable afterwards. 7. History of coronary artery disease. No chest pain at this moment. 8. Shortness of breath, likely secondary to fluid overload. We will continue with oxygen supplementation and treatment. 9. Type 2 diabetes. I have stopped the insulin drip. Continue with pattern of blood sugar and sliding scale insulin. We will monitor. 10. Hypothyroidism. Continue with IV levothyroxine for now. Hopefully tomorrow we will switch it to p.o. 11. History of multiple sclerosis, aware. She continues in remission. 12. Hypertension, stable. 13. Seizure disorder, aware. 14. History of nephrolithiasis, aware. 15. Hypokalemia, resolved. Continue with potassium on her IV fluids due to her treatment with furosemide. 16. Elevated LFTs, likely secondary to hepatic congestion due to fluid overload/CHF, better. Improving on a daily basis. 17. Constipation. I will add MiraLAX to her medications. CRITICAL CARE TIME: 35 minutes. cc: Neymar Livingston MD
[2018-12-03] MEDS: DILANTIN PO SCH (21:54)
[2018-12-03] MEDS: KLONOPIN PO PRN (21:54)
[2018-12-03] MEDS: PAMELOR PO SCH (21:55)
[2018-12-03] MEDS: ZOFRAN IV PRN (22:04)
[2018-12-04 06:16] LABS: BASO# 0.04 X1000 (0.0-0.2); BASO% 0.6 % (0.0-0.8); EOS# 0.13 X1000 (0.0-0.7); EOS% 2.1 % (0.0-10.0); HEMATOCRIT 29.5 % (37.0-47.0); HEMOGLOBIN 9.5 g/dL (12.0-16.0); IMM GRAN# 0.07 X1000 (0.0-0.04); IMM GRAN% 1.1 % (0.0-0.5); LYMPH# 1.06 X1000 (1.2-3.4); LYMPH% 16.7 % (20.5-51.1); MCH 30.4 PG (27-31); MCHC 32.2 g/dL (33-37); MCV 94.6 FL (81-99); MONO# 0.71 X1000 (0.11-0.59); MONO% 11.2 % (1.7-9.3); MPV 10.5 FL (7.4-10.4); NEUT# 4.32 X1000 (1.4-6.5); NEUT% 68.3 % (42.2-75.2); PLT 202 X1000 (130-400); RBC 3.12 XMIL (4.2-5.4); RDW 14.7 % (11.5-14.5); WBC 6.33 X1000 (4.8-10.8)
[2018-12-04] MEDS: SYNTHROID IV SCH (06:44)
[2018-12-04 06:47] LABS: AGAP 12; ALB/GLOB RATIO 0.9; ALBUMIN 3.3 g/dL (3.5-5.0); ALKALINE PHOSPHATASE 54 U/L (32-104); BUN 14 mg/dL (8-22); CHLORIDE 105 mmol/L (98-107); COSMO 288; CREATININE 0.9 mg/dL (0.5-0.9); ESTIMATED GFR > 60; GLUCOSE 174 mg/dL (70-104); GOT 10 U/L (10-30); GPT 37 U/L (10-36); POTASSIUM 4.4 mmol/L (3.5-5.1); SODIUM 142 mmol/L (136-145); TCO2 25 mmol/L (25-35); TOTAL BILIRUBIN 0.19 mg/dL (0.20-1.00)
--- NOTE | 2018-12-04 07:00 | Diag Imaging Result Doc PS360 ---
EXAM: CHEST-PORTABLE 12/04/2018 HISTORY: dyspnea TECHNIQUE: AP portable at 0435 COMMENT: Compared to 12/03/2018 there has been clearing of some opacity in the right lower lobe. Otherwise are has been no significant change. IMPRESSION: Improved atelectasis. Electronically signed by Petey Hill 12/04/2018 6:57 AM
--- NOTE | 2018-12-04 07:27 | CARDIOLOGY PROGRESS NOTE ---
DATE: 12/03/2018 SUBJECTIVE: Ms Birmingham reports improvement in her overall abdominal pain. No chest pain in the last 24 hours. She is tolerating oral intake. OBJECTIVE: Vital signs: Afebrile. Heart rate 71. Blood pressure 137/69. General: She is in no acute distress. Cardiovascular: She sounds to be in a regular rate and rhythm. She has no murmurs. No S3. She has no lower extremity edema. Chest: Sounds clear bilaterally. She has no increased work of breathing. Abdomen: Soft, mild tenderness in the epigastric area. No rebound. PERTINENT DATA: White count 6.7, hematocrit 26, platelet count is 170,000. Her sodium is 138, potassium 4, BUN 11, creatinine is 1. ASSESSMENT: Ms. Birmingham is a 63-year-old female with a history of coronary artery disease, who presented with pancreatitis. PLAN: Tentative plans on previous notes were to consider cardiac catheterization in the near future. She has not had any chest pain recently. I will make her n.p.o. after midnight on Wednesday for potential procedure. Dr. Sawyer will be back at that time, and consider that course of action. We will increase her nitrate today to 90 mg. cc: Delvis Michael MD
[2018-12-04] MEDS: HUMULIN R SUBQ SCH ×4 (07:28→21:21)
[2018-12-04] MEDS: COREG PO SCH ×2 (08:56→21:20)
[2018-12-04] MEDS: FISH OIL CONCENTRATE PO SCH ×2 (08:56→21:20)
[2018-12-04] MEDS: BRILINTA PO SCH ×2 (08:56→21:20)
[2018-12-04] MEDS: ASPIRIN EC PO SCH (08:56)
[2018-12-04] MEDS: PRILOSEC PO SCH (08:56)
[2018-12-04] MEDS: LOFIBRA PO SCH (08:56)
[2018-12-04] MEDS: MIRALAX PO SCH (08:58)
[2018-12-04] MEDS ORDERED: IMDUR PO SCH (09:00)
[2018-12-04] MEDS: ALDACTONE PO SCH (09:18)
[2018-12-04] MEDS: APRESOLINE PO SCH ×3 (09:18→21:20)
[2018-12-04] MEDS: LASIX PO SCH (09:18)
[2018-12-04] MEDS: MORPHINE IV PRN ×2 (10:26→23:15)
[2018-12-04] MEDS: ZOFRAN IV PRN ×2 (10:26→23:16)
--- NOTE | 2018-12-04 13:04 | PROGRESS NOTE ---
DATE: 12/04/2018 SUBJECTIVE: This patient is feeling better today. Blood pressure is still uncontrolled. I will place this patient back on her home medications to see how she does, including her hydralazine and spironolactone. I will switch the IV Lasix to p.o. Lasix. Hopefully, tomorrow, we will be able to discharge this patient home. OBJECTIVE: Vital Signs: Temperature 98 degrees, pulse 68, respiratory rate 20, blood pressure 153/61, oxygen saturation 99 on 2 L of nasal cannula. HEENT: Head normocephalic. No trauma. PERRLA. Neck: Supple. No JVD. No masses. Central trachea. Chest: Decreased breath sounds at the bases with some rales at the bases as well. Abdomen: Soft. Tender to palpation at the level of the epigastric area and periumbilical area but no signs of peritoneal irritation. Protuberant. Positive bowel sounds. Extremities: Trace pedal edema. No clubbing. No cyanosis. Neurologic Examination: The patient is alert and oriented x3. No focal neurological deficits. Laboratory: WBCs 6.3, hemoglobin 9.5, hematocrit 29.5, platelets 202,000. Sodium 142, potassium 4.4, chloride 105, bicarbonate 25, BUN 14, creatinine 0.9, glucose 174, calcium 9. AST 10, ALT 37, alkaline phosphatase 54, albumin 3.3. ASSESSMENT AND PLAN: 1. Acute pancreatitis secondary to hypertriglyceridemia. We will continue to monitor. I will stop the intravenous fluids today since the pancreatitis seems to be resolved, and she is tolerating oral intake and having bowel movements. Her abdomen is sore but no signs of peritoneal irritation. 2. Severe hypertriglyceridemia, treated with intravenous insulin. She also received a dose of Repatha three days ago. I will continue with her home medications. 3. Pseudohyponatremia, secondary to hypertriglyceridemia, resolved. 4. Acute kidney injury, resolved. She is having a good urine output. 5. Fluid overload with congestive heart failure exacerbation. Ejection fraction on a new echocardiogram is around 40%. I will put this patient back on her home medications. She seems to be breathing much better. Continue to monitor. 6. Anemia, status post 1 unit of packed red blood cells. Hemoglobin stable afterwards. 7. History of coronary artery disease. No chest pain. 8. Shortness of breath, likely secondary to fluid overload. This is much better. 9. Type 2 diabetes. Continue with pattern of blood sugar and sliding scale insulin. 10. Hypothyroidism. She has been placed on intravenous levothyroxine, which I have stopped. I will continue with her home medications which is levothyroxine 25 mg by mouth daily. 11. History of multiple sclerosis. Aware. 12. Hypertension. It has been a little bit uncontrolled, likely due to fluid overload and normal saline running. I have stopped the intravenous fluids. I have placed this patient back on her home medications. Let us see how she does. 13. History of seizure disorder. Aware. Continue with the same management. 14. History of nephrolithiasis. Aware. 15. Hypokalemia, resolved. 16. Elevated liver function tests, likely secondary to hepatic congestion due to fluid overload, much better. 17. Constipation. Continue with MiraLAX. She has been having bowel movements. cc: Neymar Livingston MD
--- NOTE | 2018-12-04 16:11 | CARDIOLOGY PROGRESS NOTE ---
DATE: 12/04/2018 SUBJECTIVE: She had a bout of chest pain yesterday at rest, it was only 1 bout. She is tolerating oral intake. OBJECTIVE: Vital signs: Afebrile. Heart rate 66. Her blood pressures have been in the 130s to 160s. General: No acute distress. Cardiovascular: She sounds to be in a regular rate and rhythm. She has no murmurs. No S3. She has no lower extremity edema. Chest: Clear bilaterally. No increased work of breathing. Abdomen: Mild tenderness diffusely. No rebound. No guarding. PERTINENT DATA: White count 6.3, hematocrit 29, platelet count is 202,000. Sodium 142, potassium 4.4, BUN 14, creatinine 0.9. ASSESSMENT: Ms. Birmingham is a 63-year-old female with pancreatitis and a history of coronary disease. PLAN: I will increase her Imdur up to 120. We will remove her Green catheter. She did have a bout of chest pain overnight. She has been made NPO. Previously there were considerations for possible cardiac catheterization. We will make final decisions in the morning. cc: Delvis Michael MD
[2018-12-04] MEDS: DILANTIN PO SCH (21:20)
[2018-12-04] MEDS: PAMELOR PO SCH (21:20)
[2018-12-04] MEDS: TYLENOL PO PRN (21:25)
[2018-12-04] MEDS ORDERED: MORPHINE IV PRN (23:30)
[2018-12-05 05:27] LABS: INR 0.88; PROTIME 12.7 Seconds (11.0-16.0)
[2018-12-05 06:01] LABS: AGAP 11; BUN 17 mg/dL (8-22); CALCIUM 8.4 mg/dL (8.8-10.2); CHLORIDE 103 mmol/L (98-107); COSMO 287; CREATININE 0.9 mg/dL (0.5-0.9); ESTIMATED GFR > 60; GLUCOSE 281 mg/dL (70-104); POTASSIUM 3.7 mmol/L (3.5-5.1); SODIUM 138 mmol/L (136-145); TCO2 24 mmol/L (25-35)
[2018-12-05] MEDS: HUMULIN R SUBQ SCH ×3 (06:49→16:38)
[2018-12-05] MEDS ORDERED: SYNTHROID PO SCH (07:00)
--- NOTE | 2018-12-05 07:17 | EKG Report ---
Test Performed on : 12/05/2018 06:56:50 AM Test Reason : CHEST PAIN Blood Pressure : / mmHG Vent. Rate : 061 BPM Atrial Rate : 061 BPM P-R Int : 158 ms QRS Dur : 092 ms QT Int : 442 ms P-R-T Axes : 047 027 010 degrees QTc Int : 444 ms Normal sinus rhythm. Moderate voltage criteria for LVH, may be normal variant Nonspecific ST and T wave abnormality Abnormal ECG When compared with ECG of 04-DEC-2018 23:16, (Unconfirmed) No significant change was found Confirmed by Nestor WADSWORTH, Judson Vallecillo ([id number]) on 12/05/2018 9:28:31 AM
--- NOTE | 2018-12-05 07:25 | EKG Report ---
Test Performed on : 12/04/2018 11:16:37 PM Test Reason : chest pain Blood Pressure : / mmHG Vent. Rate : 068 BPM Atrial Rate : 068 BPM P-R Int : 148 ms QRS Dur : 090 ms QT Int : 420 ms P-R-T Axes : 051 012 016 degrees QTc Int : 446 ms Normal sinus rhythm. Minimal voltage criteria for LVH, may be normal variant Cannot rule out Anterior infarct , age undetermined Abnormal ECG When compared with ECG of 30-NOV-2018 07:35, Nonspecific T wave abnormality, worse in Inferior leads T wave inversion no longer evident in Lateral leads Confirmed by Nestor WADSWORTH, Judson Vallecillo ([id number]) on 12/05/2018 9:28:28 AM
[2018-12-05] MEDS: ASPIRIN EC PO SCH (08:06)
[2018-12-05] MEDS: COREG PO SCH (08:06)
[2018-12-05] MEDS: FISH OIL CONCENTRATE PO SCH (08:06)
[2018-12-05] MEDS: ALDACTONE PO SCH (08:06)
[2018-12-05] MEDS: LASIX PO SCH (08:06)
[2018-12-05] MEDS: LOFIBRA PO SCH (08:06)
[2018-12-05] MEDS: MIRALAX PO SCH (08:07)
[2018-12-05] MEDS: PRILOSEC PO SCH (08:07)
[2018-12-05] MEDS: APRESOLINE PO SCH ×2 (08:07→16:06)
[2018-12-05] MEDS: BRILINTA PO SCH (08:07)
[2018-12-05] MEDS ORDERED: IMDUR PO SCH (09:00)
[2018-12-05] MEDS ORDERED: TRESIBA FLEXTOUCH U-100 SUBQ SCH (10:00)
--- NOTE | 2018-12-05 10:00 | CARDIOLOGY PROGRESS NOTE ---
DATE: 12/05/2018 PROBLEM LIST: 1. Patient admitted with pancreatitis. 2. Patient also had chest pain. 3. Diabetes mellitus. 4. Severe hypertriglyceridemia. 5. Coronary artery disease, status post multiple interventions. SUBJECTIVE: Patient has progressed well. Does not complain of chest pain. There is no palpitations or worsening shortness of breath. OBJECTIVE: Blood pressure was 129/62. Cardiovascular system normal jugular venous pressure. First and second heart sounds were heard. There was no S3 gallop. Respiratory system normal air entry. There is no crepitations or rhonchi. Abdomen Soft, nontender. There was no guarding or rigidity. Bowel sounds were heard. LABORATORY EXAMINATION: Sodium 138, potassium 3.7, BUN 17, creatinine 0.9. The patient had borderline abnormal troponin as well 0.2. The patient is currently asymptomatic. PLAN: 1. We will discharge her home on her current medications. 2. I will see her back in a couple of weeks in the office. If she has any further chest pains we will plan for invasive coronary angiography as an outpatient. 3. I would recommend continuing with all medications. She is has been pain free. She will be followed up at the [facility] for her hyperlipidemia as well. 4. recovered from pancreatitis cc: Basil Sawyer MD [facility]
--- NOTE | 2018-12-05 14:34 | DISCHARGE SUMMARY ---
ADMISSION DATE: 11/28/2018 DISCHARGE DATE: 12/05/2018 ADMISSION DIAGNOSES: 1. Chest pain with known coronary artery disease, rule out acute myocardial infarction. 2. Unstable angina. 3. Hyperlipidemia with severe hypertriglyceridemia. 4. Diabetes mellitus, type 2, insulin dependent. 5. Gastroesophageal reflux disease. 6. Hyponatremia. 7. Chronic kidney disease. DISCHARGE DIAGNOSES: 1. Acute pancreatitis secondary to hypertriglyceridemia, resolved with treatment of hypertriglyceridemia that required insulin drip, intravenous fluids, and statin and fenofibrate. 2. Severe hypertriglyceridemia, likely familial, hypercholesterolemia. Will be followed by Hemalatha Hyunh located out of [place], [place]. 3. Pseudohyponatremia secondary to severe hypertriglyceridemia, which has resolved. 4. Acute kidney injury on chronic kidney disease, resolved. 5. Fluid volume overload with congestive heart failure exacerbation. Ejection fraction 40%. Was followed by Cardiology. This is much improved. 6. Anemia requiring one unit of packed red blood cells. 7. History of coronary artery disease but no chest pain. 8. Shortness of breath secondary to volume overload. That is improved. 9. Diabetes mellitus, type 2, insulin dependent, stable. 10.Hypothyroidism. Continue on oral thyroid medication. 11.Multiple sclerosis, stable. 12.Hypertension. Home antihypertensives resumed. 13.History of seizure disorder. 14.History of nephrolithiasis. 15.Hypokalemia, resolved. 16.Transaminitis, likely secondary to hepatic congestion due to volume overload, improved. 17.Constipation, now having bowel movements with MiraLAX. CONSULTATIONS: 1. Cardiology, Dr. Sawyer. 2. Gastroenterology, Dr. Sheffield. 3. Dr. Calles, also with Gastroenterology. 4. She had Nephrology on board as well, Dr. Masters. SURGERIES/PROCEDURES: None. HOSPITAL COURSE: On 11/28/2018, Ms. Birmingham, a 63-year-old female with a cardiac history presented with complaints of chest pain. Apparently she had also had a history of CABG and multiple cardiac stents. Workup revealed no myocardial infarction but she did have congestive heart failure, which was treated. A new echocardiogram revealed an ejection fraction of 45%. During her workup her triglycerides and total cholesterol levels were obtained but due to the severe hypertriglyceridemia she had developed acute pancreatitis. She was transferred to the ICU for insulin drip. Statin and fenofibrate was initiated as well. Her initial triglyceride level on 11/28/2018 was greater than 4425. On the it was 2006. On the it was 625 and it continued to downtrend. She was weaned off the insulin drip and started on sliding scale insulin and eventually transferred to the medical floor. She did have elevation in her troponin, likely secondary to the congestive heart failure and the fluid volume overload. She was chest pain free. She was dyspneic at one point in time. That has improved as well. During her stay she was also anemic and required one unit of packed red blood cells. Vitals remained stable. Labs were stable and she was deemed appropriate for discharge home. She is to follow up with her physician who is caring for her high triglycerides at [facility]. DISCHARGE VITAL SIGNS: Temperature 97.8, heart rate 67, respiratory rate 12, blood pressure 116/60, oxygen saturation 97% on room air. LABORATORY DATA: Yesterday on 12/04/2018, white blood cells 6000, hemoglobin 9, hematocrit 29, platelet count 202. INR today 0.88. Sodium 138, potassium 3.7, BUN 17, creatinine 0.9, glucose 281, calcium 8.4. Troponin 0.184. The last triglyceride level was 539 and that was on 12/03/2018. Total cholesterol is 377. PERTINENT IMAGING: Chest x-ray on admission: Borderline mild prominent heart; no pneumonia. Abdominopelvic CT: Acute pancreatitis. Repeat chest x-ray showed interstitial edema; had some atelectasis on chest x-ray but had improved on 12/04/2018. Limited echocardiogram on 12/01/2018 showed an ejection fraction of 40%. Last EKG was normal sinus rhythm, rate 61, QTC 444. DISCHARGE MEDICATIONS: 1. Mirapex 0.5 mg p.o. nightly. 2. Aspirin enteric coated 81 mg p.o. daily. 3. Brilinta 90 mg p.o. twice daily. 4. Calcium and vitamin D once, twice daily. 5. Coreg 12.5 mg p.o. twice daily. 6. Clonazepam 0.5 mg p.o. twice daily p.r.n. 7. Dilantin 300 mg p.o. nightly. 8. Fenofibrate 160 mg p.o. daily. 9. Lasix 40 mg p.o. daily. 10.Hydralazine 100 mg p.o. t.i.d. 11.Imdur 60 mg p.o. daily. 12.Lipitor 40 mg p.o. daily. 13.Lovaza 2 grams p.o. twice daily. 14.Lyrica 150 mg p.o. t.i.d. 15.Magnesium 250 mg p.o. daily. 16.Insulin aspart 28 units subcutaneously three times a day. 17.Nortriptyline 75 p.o. nightly. 18.Evolocumab 140 mg subcutaneously every 14 days. 19.Spironolactone 25 mg p.o. daily. 20.Vitamin D2 100,000 units p.o. as directed. 21.Zoloft 50 mg p.o. daily. 22.MiraLAX 17 grams p.o. daily. 24.Prilosec 40 mg p.o. daily. 25.Synthroid 25 mcg p.o. daily. 25.Tresiba 70 units subcutaneously daily. DISCHARGE DIET: Diabetic diet, heart healthy. DISCHARGE ACTIVITY: As tolerated. PHYSICIAN FOLLOWUPS: Dr Sawyer and Dr. Sheffield. Also, will need to follow up with Hemalatha Huynh through [facility] and will be contacted in the next 48 hours to schedule that appointment. DISCHARGE INSTRUCTIONS: Follow up with your dinker, already scheduled that appointment and practitioner at [facility], Dr. Hemalatha Huynh, who will contact you in 48 hours for an appointment, that phone number is [phone]. If your condition changes, contact your physician and/or return to the emergency department. Changes may include, but are not limited to, shortness of breath, increased fatigue, excessive bleeding, unexplained weight loss of gain, unimaginable pain, signs or symptoms of infection. DISCHARGE DISPOSITION: Home. Dictated by BEHZAD Covarrubias for Neymar Livingston MD cc: BEHZAD Covarrubias MD
[2018-12-05 15:25] VITALS: BP 147/60
--- NOTE | 2018-12-05 19:45 | GASTROENTEROLOGY PROGRESS NOTE ---
DATE: 12/05/2018 SUBJECTIVE: Patient is feeling better. She states she has discharge orders. She was admitted with pancreatitis, thought to be related to severe hypertriglyceridemia. Patient reports this is her first episode of pancreatitis. She usually follows with final canoe inspector, Dr. Kaur Brown in [place]. Patient's primary physician is Dr. Person. She has also had some problems with chest pain and has been seen by Cardiology. They plan to follow up with her as an outpatient for coronary angiography. As noted, patient reports having discharge orders for today. OBJECTIVE: Vital Signs: Temperature 98.0 degrees, pulse 72, respirations 12, blood pressure 147/60. General: Patient is awake and alert, in no acute distress. Her abdominal pain has improved. LABORATORY: Hematology: WBC 6.33, hemoglobin 9.5, hematocrit 29.5, MCV 94.6. Chemistry: Sodium 138, potassium 3.7, chloride 103, CO2 24, BUN 17, creatinine 0.9, glucose 281. ASSESSMENT AND PLAN: 1. Acute pancreatitis, related to hypertriglyceridemia. Continue her medications once discharged. Follow low fat diet. 2. Chest pain. Following with Cardiology and plans to follow up with them as an outpatient for further workup. 3. Anemia has improved. 4. Congestive heart failure. Continue her current medications. PLAN: Patient has been following with Dr. Kaur Brown in [place]. Recommend she follow back with her once discharged. Patient was also seen by Dr. Calles. Dictated by BEHZAD Coreas for Kannan Calles MD cc: BEHZAD Mcmullen MD [facility]
== END 2018-12-05 16:45 | disposition home or self-care (01) | DRG 642 ==
LOC: DIRADM → SUATTDRO 17:19 → OBSVTOIN 17:19 → 3N 19:22 → ICU 11-29 14:34 → 4N 12-03 11:42
PROVIDERS: ATTEND Internal Medicine
CPT/HCPCS: 36430; 71010; 71045; 74177; 80048; 80053; 80061; 80076; 80101; 80301; 80307; 80324; 80345; 80346; 80353; 80358; 80361; 80365; 81001; 82150; 82550; 82570; 82607; 82728; 82746; 82948; 83036; 83540; 83550; 83690; 83735; 83930; 83935; 83992; 84300; 84443; 84478; 84484; 85025; 85027; 85610; 86850; 86870; 86900; 86901; 86920; 86922; 87040; 93005; 93010; 93308; 94761; A9270; G0431; G0434; G0479; G0480; J1815; J1940; J2270; J2405; J2550; J3480; J7030; J7040; J7042; J7120; P9016; Q9967; XXXXX

== ENCOUNTER 2019-04-13 12:50 | Inpatient (IN) ==
--- NOTE | 2019-04-13 13:33 | Diag Imaging Result Doc PS360 ---
CHEST-1 VIEW - 04/13/2019 INDICATION: SOB COMPARISON: 12/04/2018 FINDINGS: There is borderline cardiomegaly. Stable surgical changes to the heart. Normal pulmonary vascularity. No infiltrates or edema. Stable vertebroplasty change in the midthoracic spine. IMPRESSION: Mild cardiomegaly. Electronically signed by Randal Tao 04/13/2019 1:30 PM
[2019-04-13 14:11] LABS: URINE SOURCE CLEAN CATCH
[2019-04-13 14:14] LABS: BILIRUBIN URINE NEGATIVE (NEGATIVE); BLOOD URINE NEGATIVE (NEGATIVE); COLOR YELLOW; GLUCOSE URINE 500 mg/dL (NEGATIVE); KETONE URINE NEGATIVE (NEGATIVE); LEUKOCYTES URINE NEGATIVE (NEGATIVE); NITRITE URINE NEGATIVE (NEGATIVE); PROTEIN URINE NEGATIVE (NEGATIVE); SP GRAVITY URINE 1.014; TURBIDITY URINE CLEAR (CLEAR); UROBILINOGEN URINE NORMAL (NORMAL)
[2019-04-13 14:15] LABS: UR EPITHELIAL CELLS <10 /HPF (<10); URINE BACTERIA NEGATIVE /HPF; URINE RBC <10 /HPF (<10); URINE WBC <10 /HPF (<10)
[2019-04-13 14:17] LABS: BASO# 0.02 X1000 (0.0-0.2); BASO% 0.4 % (0.0-0.8); EOS# 0.07 X1000 (0.0-0.7); EOS% 1.4 % (0.0-10.0); HEMATOCRIT 32.6 % (37.0-47.0); HEMOGLOBIN 12.4 g/dL (12.0-16.0); LYMPH# 1.18 X1000 (1.2-3.4); LYMPH% 23.2 % (20.5-51.1); MCH 35.8 PG (27-31); MCV 94.2 FL (81-99); MONO# 1.32 X1000 (0.11-0.59); MONO% 25.9 % (1.7-9.3); MPV 13.3 FL (7.4-10.4); NEUT% 49.1 % (42.2-75.2); PLT 179 X1000 (130-400); RBC 3.46 XMIL (4.2-5.4); RDW 12.7 % (11.5-14.5); WBC 5.09 X1000 (4.8-10.8)
[2019-04-13 14:25] LABS: LYMPHS 52 % (21-51); MONO 2 % (1-9); SEGS 46 % (42-75)
[2019-04-13 14:49] LABS: AGAP 17; ALB/GLOB RATIO 1.5; ALBUMIN 4.1 g/dL (3.5-5.0); ALKALINE PHOSPHATASE 34 U/L (32-104); AMYLASE 145 U/L (20-200); BUN 31 mg/dL (8-22); CALCIUM 9.2 mg/dL (8.8-10.2); CHLORIDE 91 mmol/L (98-107); COSMO 273; CREATININE 1.3 mg/dL (0.5-0.9); ESTIMATED GFR 41; GLUCOSE 238 mg/dL (70-104); GOT 21 U/L (10-30); GPT 11 U/L (10-36); LIPASE 60 U/L (13-60); POTASSIUM 4.6 mmol/L (3.5-5.1); SODIUM 129 mmol/L (136-145); TCO2 21 mmol/L (25-35); TOTAL BILIRUBIN < 0.15 mg/dL (0.20-1.00); TOTAL PROTEIN 6.9 g/dL (6.3-8.3)
--- NOTE | 2019-04-13 18:29 | PROVIDER DOCUMENTATION ---
HPI-General Adult - General Chief Complaint: Shortness of Breath Stated Complaint: SOB Time Seen by Provider: 04/13/19 13:06 Source: patient Allergies/Adverse Reactions: Patient Allergies Allergy/AdvReac Type Severity Reaction Status Date / Time No Known Allergies Allergy Verified 04/13/19 18:18 Home Medications: Home Medication List Medication Instructions Recorded Confirmed Last Taken Type Aspirin [Aspirin EC] 81 mg PO DAILY 10/06/18 04/13/19 04/13/19 History Atorvastatin Calcium [Lipitor] 40 mg PO DAILY 10/06/18 04/13/19 04/13/19 History Calcium Carbonate/Vitamin D3 1 ea PO DAILY 10/06/18 04/13/19 04/13/19 History [Calcium 500 + Vit D Caplet] Clonazepam 0.5 mg PO BID PRN PRN 10/06/18 04/13/19 04/12/19 History Furosemide 40 mg PO DAILY PRN 10/06/18 04/13/19 10/05/18 History Hydralazine HCl 100 mg PO TID PRN 10/06/18 04/13/19 10/05/18 History Isosorbide Mononitrate E.r. [Imdur] 60 mg PO DAILY 10/06/18 04/13/19 04/13/19 History Phenytoin Sodium Extended 100 mg PO TID 10/06/18 04/13/19 04/12/19 History [Dilantin] Pramipexole [Mirapex] 0.5 mg PO QHS 10/06/18 04/13/19 04/12/19 History Sertraline [Zoloft] 50 mg PO DAILY 10/06/18 04/13/19 04/13/19 History Spironolactone 25 mg PO PRN PRN 10/06/18 04/13/19 10/05/18 History Ticagrelor [Brilinta] 90 mg PO BID 10/06/18 04/13/19 04/13/19 History Insulin Aspart [Novolog] 35 unit SQ DIRECTED 11/28/18 04/13/19 04/13/19 History Rupert-3 Acid Ethyl Esters [Lovaza] 2 gm PO BID 11/28/18 04/13/19 04/13/19 History Carvedilol 1 tab PO BID 04/13/19 04/13/19 04/13/19 History Ergocalciferol (Vitamin D2) 1 cap PO DAILY 04/13/19 04/13/19 04/13/19 History [Vitamin D2] Evolocumab [Repatha Sureclick] 1 ml SUBQ DIRECTED 04/13/19 04/13/19 04/08/19 History Fenofibrate [Tricor] 1 tab PO DAILY 04/13/19 04/13/19 04/13/19 History Insulin Degludec [Tresiba 85 units SUBQ DAILY 04/13/19 04/13/19 04/13/19 History Flextouch U-200] LISINOpril [Prinivil] 1 tab PO BID 04/13/19 04/13/19 04/13/19 History Levothyroxine [Synthroid] 1 tab PO DAILY 04/13/19 04/13/19 04/13/19 History Nitroglycerin [Nitroquick] 1 tab SUBLINGUAL PRN PRN 04/13/19 04/13/19 Unknown History - History of Present Illness -Gen Adult Nature of Presenting Problems: This is a 64yo female who presents with CC of shortness of breath and abdominal discomfort. The patient reports that over the last few days she has not been feeling well and was in [place] today and was not feeling well, so she came to the hospital this evening. She reports a full feeling in her abdomen as well as some weakness in her legs with walking. The patient reports that she is a patient of Dr. Sawyer and does have a history of heart attacks with stenting. The patient denies any nausea or sweats. Location of Pain/Injury: reports: chest Quality of Pain: reports: pressure Onset/Duration: reports: 2 days ago Timing: reports: still present Modifying Factors: improves with: movement (worse with movment.) Associated Symptoms: reports: shortness of breath, other (abdominal fullness) Review of Systems - Adult - REVIEW OF SYSTEMS - ADULT Constitutional: denies: fever Eyes: denies: blurred vision Ears, Nose, Mouth & Throat: reports: no symptoms reported Cardiovascular: reports: chest pain (chest pressure) Respiratory: reports: shortness of breath Gastrointestinal: reports: abdominal pain (fullness) Genitourinary: reports: no symptoms reported. denies: hematuria Musculoskeletal: reports: muscle weakness Neurological: reports: loss of balance Psychiatric: reports: no symptoms reported Endocrine: reports: no symptoms reported Hematologic/Lymphatic: reports: no symptoms reported, other (no bleeding) Allergic/Immunologic: reports: no symptoms reported Past History - Adult - PAST MEDICAL HISTORY-ADULT Review of Records: reports: Old Records Reviewed Major Childhood Illnesses: reports: denies history Cardiovascular: reports: cardiac disease, CAD, HTN, hyperlipidemia, NC Respiratory: reports: denies history Gastrointestinal: reports: denies history Obstetrical/Gynecological: reports: denies history Genitourinary: reports: kidney disease Musculoskeletal: reports: other (carpal tunnel) Neurological: reports: Multiple Sclerosis, Seizures/Epilepsy Endocrine/Immune: reports: Diabetes, thyroid disorder Other Conditions: reports: denies history - PRIOR SURGERIES/PROCEDURES Surgical/Procedure History: reports: CABG, hysterectomy, other (AAA repair, ulnar nerve release bilat UE) - IMMUNIZATION STATUS Childhood Immunizations: See Nurse Assessment Flu Vaccine: See Nurse Assessment - FAMILY HISTORY Family History: reviewed, not pertinent - SOCIAL HISTORY Smoking: denies Substance Use: none/never Alcohol Use Frequency: never Physical Exam-General - PHYSICAL EXAM-ADULT Initial Vital Signs Reviewed: Yes - CONSTITUTIONAL General Appearance: alert, no apparent distress - EYES Eyes: negative: photophobia, scleral icterus - HEAD, EARS, NOSE, MOUTH & THROAT HENMT: normocephalic/atraumatic, moist mucous membranes - RESPIRATORY Respiratory: lungs clear. negative: respiratory distress - CARDIOVASCULAR Cardiovascular: regular rate, rhythm, no edema, JVD - GASTROINTESTINAL (ABDOMEN) Abdominal Exam: soft, distended, tenderness (diffuse lower abdominal tenderness) . negative: rebound - MUSCULOSKELETAL Peripheral Pulses: dorsalis-pedis (R): 1+, dorsalis-pedis (L): 1+ - SKIN Integumentary: normal color - NEUROLOGIC Neurologic: grossly normal - PSYCHIATRIC Psych/Mental Status: normal mood/affect, normal thought content, normal thought process Progress - PLAN OF CARE/RESULTS Progress/Plan/Lab Results: Vital Signs - 8 hr 04/13/19 13:04 04/13/19 14:15 04/13/19 17:15 Temperature 97.8 F 98.0 F 98.2 F Pulse Rate 63 58 L 55 L Respiratory Rate 20 18 17 Blood Pressure 152/65 131/84 158/65 O2 Sat by Pulse Oximetry 95 99 97 Laboratory Results - last 24 hr 04/13/19 04/13/19 04/13/19 13:13 13:13 13:13 WBC 5.09 RBC 3.46 L Hgb 12.4 Hct 32.6 L MCV 94.2 MCH 35.8 H MCHC 38.0 H RDW Std Deviation 12.7 Plt Count 179 MPV 13.3 H Neut % (Auto) 49.1 Lymph % (Auto) 23.2 Scurry % (Auto) 25.9 H Eos % (Auto) 1.4 Baso % (Auto) 0.4 Neut # (Auto) 2.50 Lymph # (Auto) 1.18 L Scurry # (Auto) 1.32 H Eos # (Auto) 0.07 Baso # (Auto) 0.02 Segmented Neutrophils 46 Lymphocytes 52 H Monocytes 2 Sodium 129 L Potassium 4.6 Chloride 91 L Carbon Dioxide 21 L Anion Gap 17 BUN 31 H Creatinine 1.3 H Estimated GFR/1.73 m2 41 BUN/Creatinine Ratio 24 Glucose 238 H Calculated Osmolality 273 Calcium 9.2 Total Bilirubin < 0.15 L AST 21 ALT 11 Alkaline Phosphatase 34 Troponin T < 0.010 Total Protein 6.9 Albumin 4.1 Globulin 2.8 Albumin/Globulin Ratio 1.5 Amylase 145 Lipase 60 Urine Source Urine Color Urine Turbidity Urine pH Ur Specific Pearson Urine Protein Ur Glucose (Stick) Ur Ketones (Stick) Urine Blood Urine Nitrite Urine Bilirubin Urobilinogen Dipstick Urine Leukocytes Urine WBC (Auto) Urine RBC (Auto) U Epithel Cells (Auto) Urine Bacteria (Auto) 04/13/19 14:05 WBC RBC Hgb Hct MCV MCH MCHC RDW Std Deviation Plt Count MPV Neut % (Auto) Lymph % (Auto) Scurry % (Auto) Eos % (Auto) Baso % (Auto) Neut # (Auto) Lymph # (Auto) Scurry # (Auto) Eos # (Auto) Baso # (Auto) Segmented Neutrophils Lymphocytes Monocytes Sodium Potassium Chloride Carbon Dioxide Anion Gap BUN Creatinine Estimated GFR/1.73 m2 BUN/Creatinine Ratio Glucose Calculated Osmolality Calcium Total Bilirubin AST ALT Alkaline Phosphatase Troponin T Total Protein Albumin Globulin Albumin/Globulin Ratio Amylase Lipase Urine Source CLEAN CATCH Urine Color YELLOW Urine Turbidity CLEAR Urine pH 7.0 Ur Specific Pearson 1.014 Urine Protein NEGATIVE Ur Glucose (Stick) 500 A Ur Ketones (Stick) NEGATIVE Urine Blood NEGATIVE Urine Nitrite NEGATIVE Urine Bilirubin NEGATIVE Urobilinogen Dipstick NORMAL Urine Leukocytes NEGATIVE Urine WBC (Auto) <10 Urine RBC (Auto) <10 U Epithel Cells (Auto) <10 Urine Bacteria (Auto) NEGATIVE Orders Category Date Time Status CHEST-1 VIEW [RAD] Stat Exams 04/13/19 13:07 Completed AMYLASE [CHEM] Stat Lab 04/13/19 13:13 Completed BNP [PRO B-NATRIURETIC PEPTIDE] Stat Lab 04/13/19 17:35 Ordered CBC WITH DIFF [HEME] Stat Lab 04/13/19 13:13 Completed COMPREHENSIVE METABOLIC PANEL [CHEM] Stat Lab 04/13/19 13:13 Completed LIPASE [CHEM] Stat Lab 04/13/19 13:13 Completed TROPONIN T Stat Lab 04/13/19 13:13 Completed URINALYSIS W/POSS RFLX CULT [URINALYSIS] Stat Lab 04/13/19 14:05 Completed EKG [EKG] Stat Ther 04/13/19 13:07 Ordered Result Diagrams: 04/13/19 13:13 04/13/19 13:13 - REASSESSMENT Reassessment #1 Status: other (Discussed case wtih Dr. Sawyer of cardiology who recomends admission to the hospitalist team.) Reassessment #2 Status: other (Discussed case with hospitalist team who has accepted the patient.) - EKG 1 EKG Read and Signed by:: Goyo Liz EKG Interpretation (*Must complete 3 of following elements*): Abnormal Rate: 56 Rhythm: sinus [place]: normal QRS: normal NH Interval: normal ST Wave: normal, non-specific ST changes Departure - Departure Date of Disposition Decision: 04/13/19 Time of Disposition Decision: 19:43 DIAGNOSIS: Chest pressure, Bradycardia, Shortness of breath Disposition: ADMITTED INPATIENT 09 Certified Medical Emergency: Emergent Condition: Fair Referrals and Follow-Ups: Gumaro Person MD [Primary Care Provider] - - Critical Care Note This patient required my direct & personal management of CC.: No Attestation - Physician/ JHONATHAN Attestation Patient care was provided by Advanced Practice Provider:: No The physician spent face to face time with patient:: Yes Advanced Practice Provider documentation review:: Supervising physician onsite and consulted in the evaluation and care of this patient. The physician did have a face to face encounter with the patient.
--- NOTE | 2019-04-13 18:31 | EKG Report ---
Test Performed on : 04/13/2019 5:24:43 PM Test Reason : SOB Blood Pressure : / mmHG Vent. Rate : 056 BPM Atrial Rate : 056 BPM P-R Int : 190 ms QRS Dur : 094 ms QT Int : 472 ms P-R-T Axes : 048 005 057 degrees QTc Int : 455 ms Sinus bradycardia. Minimal voltage criteria for LVH, may be normal variant Inferior infarct , age undetermined Abnormal ECG When compared with ECG of 05-DEC-2018 06:56, Inferior infarct is now present Non-specific change in ST segment in Inferior leads Nonspecific T wave abnormality no longer evident in Inferior leads T wave inversion more evident in Lateral leads Unconfirmed Result
[2019-04-13 19:23] LABS: AMYLASE 151 U/L (20-200); LIPASE 93 U/L (13-60)
[2019-04-13] MEDS ORDERED: KLONOPIN PO PRN (20:15)
[2019-04-13] MEDS ORDERED: APRESOLINE PO PRN (20:15)
[2019-04-13] MEDS ORDERED: ALDACTONE PO PRN (20:15)
[2019-04-13] MEDS ORDERED: NITROGLYCERIN SL PRN (21:47)
[2019-04-13] MEDS ORDERED: NS 1,000 ML IV ONE (21:47)
[2019-04-13] MEDS ORDERED: TYLENOL PO PRN (21:47)
[2019-04-13] MEDS: PRINIVIL PO SCH (22:10)
[2019-04-13] MEDS: BRILINTA PO SCH (22:11)
[2019-04-13] MEDS: DILANTIN PO SCH (22:11)
[2019-04-13] MEDS: MIRAPEX PO SCH (22:11)
[2019-04-13] MEDS: COREG PO SCH (22:11)
[2019-04-13] MEDS: HUMALOG SUBQ SCH (22:13)
[2019-04-14] MEDS: MORPHINE IV PRN ×2 (03:37→20:56)
[2019-04-14] MEDS: ZOFRAN IV PRN ×2 (03:37→20:56)
[2019-04-14] MEDS: HUMALOG SUBQ SCH ×6 (03:38→21:05)
--- NOTE | 2019-04-14 05:48 | HISTORY AND PHYSICAL ---
CHIEF COMPLAINT: Shortness of breath. HISTORY OF PRESENT ILLNESS: This is a 64-year-old female who presented to the emergency room today after having the feeling of abdominal fullness and shortness of breath. States that she has not felt well for the past three or four days. Today she was in [place] and continued not to feel well so she came into the ER. She does have a history of coronary artery bypass grafting, multiple cardiac stenting, AAA repair, hyperlipidemia, hypertriglyceridemia, I believe multiple sclerosis, hypertension, diabetes mellitus type 2 that is insulin-dependent, hypothyroidism, diabetic gastroparesis, GERD and peripheral vascular disease. Dr. Sawyer was spoken to about the patient who recommended being admitted for further evaluation and treatment. She has also had a history of fairly recent abdominal pain that she felt was chest pain but it was found to be related to acute pancreatitis from her hypertriglyceridemia. Her lipase is again mildly elevated. She may have chronic pancreatitis possibly. At any rate, she will be admitted for further evaluation and treatment. PAST MEDICAL HISTORY: See HPI. PREVIOUS SURGICAL HISTORY: 1. AAA repair. 2. Coronary artery bypass graft. 3. Multiple cardiac stenting. 4. Bilateral upper extremity ulnar nerve release. 5. Left hip repair. 6. Hysterectomy. SOCIAL HISTORY: No tobacco, alcohol or illicit drugs. FAMILY HISTORY: Mother had coronary artery disease. Had her first coronary artery bypass grafting in her 50s. She has a large family history of coronary artery disease and hyperlipidemia. ALLERGIES: No known drug allergies. HOME MEDICATIONS: Repatha p.r.n., NovoLog 35 units subcutaneously sliding scale, Tresiba 85 units subcutaneously daily, nitroglycerin 0.4 sublingual p.r.n. chest pain, Lovaza 2 grams p.o.b.i.d., aspirin 81 mg p.o. daily, Lipitor 40 mg p.o.daily, calcium 500+ vitamin D one p.o. b.i.d., carvedilol 12.5 mg p.o. b.i.d., clonazepam 0.5 mg p.o. b.i.d. p.r.n., vitamin D2 50,000 units p.o. daily, fenofibrate 48 mg p.o. daily, furosemide 40 mg p.o. daily, hydralazine 100 mg p.o. t.i.d., Isosorbide 60 mg p.o. daily, levothyroxine 50 mcg p.o. daily, lisinopril 20 mg p.o. b.i.d., Dilantin 100 mg p.o. b.i.d., Mirapex 0.5 mg p.o. nightly, sertraline 50 mg p.o. daily, spironolactone 25 mg p.o. p.r.n., Brilinta 90 mg p.o. b.i.d. REVIEW OF SYSTEMS: Fourteen point review of systems conducted with the patient. Pertinent positives listed above in the HPI. All other systems reviewed and found to be negative. PHYSICAL EXAMINATION: VITAL SIGNS: Temperature 98, pulse 62, respirations 17, blood pressure 118/43, oxygen saturation 96% on 2 L nasal cannula. GENERAL: A pleasant 64-year-old female lying in the ER stretcher. Answers all questions appropriately. Alert and oriented x3. She is in no acute distress. HEENT: Head is atraumatic, normocephalic. Pupils equal, round, reactive to light. Extraocular eye movement is intact. Sclerae is anicteric. Conjunctivae is mildly pale. Oral mucosa is dry. NECK: Supple. No JVD. No thyromegaly. Trachea is midline. No cervical lymphadenopathy. CARDIAC: S1, S2 appreciated. No murmurs, gallops or rubs. LUNGS: Clear to auscultation bilaterally. No rhonchi, wheezes or rales. Symmetric rise and fall with respirations. ABDOMEN: Soft, nondistended, diffusely tender. Bowel sounds present in all four quadrants. Normoactive. No pulsatile masses. No organomegaly. EXTREMITIES: No clubbing, cyanosis or edema. Two-plus pedal pulse bilaterally. GENITOURINARY: No bladder distention. Patient voids. Otherwise deferred. SKIN: Warm, dry, and intact. Mildly pale. No acute lesions or rash. NEUROLOGICAL: Alert and oriented x3. No focal motor deficits. Otherwise nonfocal examination. DIAGNOSTIC DATA: Abdominal x-ray is pending. Chest x-ray, mild cardiomegaly. EKG shown at sinus bradycardia, rate of 56. Nonspecific ST changes. LABORATORY DATA: WBC 5.09. Hemoglobin 12.4. Hematocrit 32.6. Platelet count 179. Sodium 129. Potassium 4.6. Chloride 91. Carbon dioxide 21. BUN 31. Creatinine 1.3. Glucose 238. Lipase 93. CKs and troponins were within normal limits. ASSESSMENT AND PLAN: 1. Chest pain. Rule out acute myocardial infarction. Will trend cardiac enzymes. Check a lipid profile. Continue patient's home medications. Will consult Dr. Sawyer. She does have known coronary artery disease. 2. Hypertriglyceridemia with questionable acute or chronic pancreatitis. Her lipase is very marginally elevated. Will recheck this morning. Hold patient NPO. Will give morphine as needed for pain. As noted, lipid panel will be checked. Will continue her fenofibrate and statin. 3. Hyponatremia. This could be multifactorial. It could be pseudohyponatremia related to her hypertriglyceridemia. It could also be related to her chronic SSRI use. She will given fluid as she has a mild acute kidney injury. Recheck laboratory data in the morning. 4. Diabetes mellitus, type 2, with hyperglycemia. The patient is insulin- dependent. Check hemoglobin A1c, q.4 hour blood sugars with sliding scale insulin. 5. Acute kidney injury with mild renal insufficiency. Will give fluids. Recheck laboratory data tomorrow morning. Further recommendations per patient clinical course. Dictated by BEHZAD Broussard for Yonatan Hopper MD I have performed a face to face diagnostic evaluation. Labs/ Xrays- reviewed. Exam- Chest -clear, CV- regular . A/P- Chest Pain-Admit, cardiac work up. cardiology consult, [facility] Dr. Ward Valdes#: [id number] cc: BEHZAD Broussard MD [facility]
[2019-04-14] MEDS: PRILOSEC PO SCH (06:46)
--- NOTE | 2019-04-14 06:56 | Diag Imaging Result Doc PS360 ---
EXAM: ABDOMEN FLAT/UPRIGHT HISTORY: abd pain TECHNIQUE: Flat and upright three views COMPARISON: None. FINDINGS: No free air beneath the diaphragm. Prominent stool throughout the colon. No bowel obstruction. There are multiple surgical clips in the abdomen. Liver is mildly prominent. Prior surgery to the left hip. IMPRESSION: Constipation. Prominent liver. Electronically signed by Shant Marina 04/14/2019 6:55 AM
--- NOTE | 2019-04-14 07:03 | EKG Report ---
Test Performed on : 04/14/2019 06:31:58 AM Test Reason : CP Blood Pressure : / mmHG Vent. Rate : 055 BPM Atrial Rate : 055 BPM P-R Int : 186 ms QRS Dur : 088 ms QT Int : 510 ms P-R-T Axes : 052 013 037 degrees QTc Int : 487 ms Sinus bradycardia. Nonspecific T wave abnormality Prolonged QT Abnormal ECG When compared with ECG of 13-APR-2019 17:24, (Unconfirmed) No significant change was found Confirmed by Jovany WADSWORTH, Melchor Amos ([id number]) on 04/14/2019 1:57:04 PM
[2019-04-14 07:25] LABS: CALCIUM 8.4 mg/dL (8.8-10.2); POTASSIUM 4.2 mmol/L (3.5-5.1)
[2019-04-14 07:56] LABS: CHOLESTEROL 503 mg/dL (0-200); DIRECT LDL 34 mg/dL; HDL 12 mg/dL (45-65)
[2019-04-14 08:17] LABS: TRIGLYCERIDES 4329 mg/dL (35-135)
[2019-04-14 08:25] LABS: VLDL > 499 mg/dL
[2019-04-14] MEDS: DILANTIN PO SCH ×3 (08:45→20:57)
[2019-04-14] MEDS ORDERED: LASIX PO PRN (09:00)
[2019-04-14] MEDS ORDERED: LIPITOR PO SCH ×2 (09:00→21:00)
[2019-04-14] MEDS ORDERED: CALTRATE 600 + D PO SCH (09:00)
[2019-04-14] MEDS ORDERED: VITAMIN D PO SCH (09:00)
[2019-04-14] MEDS ORDERED: LASIX IV SCH (10:00)
--- NOTE | 2019-04-14 12:42 | Diag Imaging Result Doc PS360 ---
EXAM: US ABDOMEN-COMPLETE INDICATION: evaluate for ascites COMPARISON: None. FINDINGS: No ascites is appreciated. The gallbladder appears normal with no stones, wall thickening, or pericholecystic fluid. The common bile duct is normal in diameter. Sonographic Quigley's sign was reported to be negative. The liver echotexture is somewhat increased suggesting likely hepatic steatosis. No discrete hepatic mass is identified. Portal venous flow is hepatopetal. The visualized pancreas is unremarkable. The aorta and IVC are grossly unremarkable. The spleen is unremarkable. The kidneys are grossly unremarkable. IMPRESSION: Likely hepatic steatosis. No evidence of ascites. Electronically signed by Rolly Pierce 04/14/2019 12:40 PM
[2019-04-14] MEDS ORDERED: LEXISCAN ONE (12:54)
[2019-04-14] MEDS ORDERED: AMINOPHYLLINE ONE (13:04)
--- NOTE | 2019-04-14 15:33 | PROGRESS NOTE ---
DATE: 04/14/2019 The patient admitted with upper abdominal/lower chest pain, dyspnea on exertion. Has history of hypertriglyceridemia, which is not well controlled, and occasional pancreatitis, which may be contributing to what she has going on here though. However, lipase was only minimally elevated on admission and is already coming back down to normal. It was more significantly elevated on her previous admission pancreatitis. Her symptoms are somewhat improved, however. Evaluation for acute coronary syndrome has been negative thus far. I suspect her symptoms are related to her chronic medical issues, but given progressive dyspnea on exertion, we will see what Cardiology says and whether they think she needs further evaluation with stress test or heart catheterization. Increased atorvastatin to 80 given ongoing hypertriglyceridemia. If jeffery pancreatitis develops, then we will consider transfer to ICU for insulin drip. If cleared by cardiac and symptoms remain resolved, then may be able to be discharged home.
--- NOTE | 2019-04-14 16:05 | Diag Imaging Result Document ---
PROCEDURE NAME: MYOCARDIAL PERF SCAN, STR/REST - 04/14/2019 PROCEDURE: Lexiscan Cardiolite stress test. SUMMARY: Lexiscan was infused per standard protocol. There was no chest pain. Baseline electrocardiogram revealed normal sinus rhythm, nonspecific ST-T changes in the inferolateral leads. Stress electrocardiogram was nondiagnostic. Following Lexiscan infusion, Cardiolite was injected. Gated SPECT images were obtained in standard views. The patient had chest discomfort during Lexiscan infusion, received 125 mg of aminophylline given intravenously. Next, 10.5 mCi of Cardiolite was injected for the rest phase, 30.7 mCi of Cardiolite was injected for the stress phase. Images were obtained in standard views. Images revealed severe-grade fixed defect in the inferior and the inferolateral wall diagnostic of infarct or scar. There is no evidence of ischemia. Left ventricular ejection fraction by gated SPECT was 65%. Inferior wall hypokinesis. CONCLUSION: 1. The patient had chest discomfort during Lexiscan infusion treated with aminophylline. 2. Nondiagnostic stress electrocardiogram. 3. Myocardial perfusion images revealed no evidence of ischemia. 4. There is severe-grade fixed defect in the inferior and inferolateral wall suggestive of infarct or scar. Left ventricular ejection fraction by gated SPECT was 65%. Inferior wall hypokinesis noted. cc: MD Shalonda Cardenas PA
--- NOTE | 2019-04-14 16:19 | ECHO REPORT ---
ORDER DATE: 04/14/2019 ECHOCARDIOGRAPHIC MEASUREMENTS: 1. Interventricular septum 1.2. 2. Left ventricular posterior wall 1.4. 3. Diastolic diameter 4.4 4. Left atrium 3.7. SUMMARY: 1. Aortic valve leaflets were trileaflet. 2. Pulmonic valve was normal. 3. Mitral valve was normal. 4. Tricuspid valve was normal. 5. There is moderate tricuspid regurgitation. 6. Peak velocity across the tricuspid valve was 2.6 m/sec. 7. There is left atrial enlargement. 8. There is mild mitral regurgitation. 9. Peak velocity across aortic valve less than 2 m/sec. 10. There is no aortic stenosis or regurgitation. 11. Normal left ventricular cavity size. 12. Estimated ejection fraction of 60%. 13. There is diastolic dysfunction. 14. Peak velocity across aortic valve less than 2 m/sec. 15. There is no aortic stenosis or regurgitation. 16. Pulmonary artery systolic pressure of 37 mmHg. 17. There is no pericardial effusion or obvious intracardiac mass or thrombus. cc: MD Shalonda Cardenas PA
[2019-04-14] MEDS: BRILINTA PO SCH ×2 (16:52→20:57)
[2019-04-14] MEDS: ASPIRIN EC PO SCH (16:52)
[2019-04-14] MEDS: ALDACTONE PO SCH (16:53)
[2019-04-14] MEDS: PRINIVIL PO SCH ×2 (16:54→20:57)
[2019-04-14] MEDS: SYNTHROID PO SCH (16:54)
[2019-04-14] MEDS: TRICOR PO SCH (16:54)
[2019-04-14] MEDS: ZOLOFT PO SCH (16:54)
[2019-04-14] MEDS: IMDUR PO SCH (16:54)
[2019-04-14] MEDS: COREG PO SCH ×2 (16:55→20:57)
--- NOTE | 2019-04-14 17:09 | CARDIOLOGY CONSULTATION ---
DATE: 04/14/2019 HISTORY OF PRESENT ILLNESS: The patient is a 64-year-old lady who has a complicated medical history. She was yesterday at her [facility] [employer] [facility] in [facility] and was noted to have increasing episodes of shortness of breath and has noted some shortness of breath, and she thought she had increased abdominal discomfort. She denies any retrosternal chest pain per se. However, she says she has had some fullness in her chest and in the epigastric region. She has significant coronary artery disease, has had multiple admissions with hypertriglyceridemia and pancreatitis as well. She says her symptoms this time are not as severe as what she has had before, but she was advised by her physician in [place] to see us and be admitted given her weight gain as well. The symptoms of discomfort are neither similar to her previous anginal or pancreatitis symptoms. There are no palpitations. There is no dizziness or syncope. She has significant anxiety given her multiple significant medical history. REVIEW OF SYSTEM: A 14-point review of systems was done.Gastrointestinal System: There is no nausea, vomiting or diarrhea. There is no history of hematemesis or melena. Central Nervous System: No focal weakness to suggest a CVA or TIA. Genitourinary: There is no dysuria or hematuria. PAST MEDICAL HISTORY: 1. Coronary artery disease, status post coronary artery bypass grafting in 2008 with COLÓN to left anterior descending artery, saphenous vein graft to OM, saphenous vein graft to PLS. 2. She has had multiple cardiac catheterizations at [facility], the last one being on 09/09/2018 where the left main artery was large vessel widely patent, stent in the left anterior descending artery protrudes into the left main, left anterior descending artery had small to diagonal, left anterior descending artery subsequently occluded. Circumflex is a midsized vessel, 60% to 70% stenosis, RCA dominant chronically occluded, the graft anatomy revealed COLÓN to left anterior descending artery was patent distal small vessel, saphenous vein graft to obtuse marginal artery had a critical 99% stenosis treated with a drug-eluting stent, SVG to right coronary artery was occluded from the past. 3. Hypertension. 4. Premature ventricular beats noted. 5. Severe hypertriglyceridemia. 6. Diabetes. 7. Multiple sclerosis. 8. Nephrolithiasis. 9. Sleep disorder. 10. Seizure disorder. 11. Hyperlipidemia. 12. She was admitted at [facility] with severe pancreatitis and subsequently had another episode of admission earlier this year at [place] with pancreatitis, which at that time was evaluated by Neurology and by a renal physician at [facility] given her worsening renal function. Creatinine had worsened to 1.5. Because she has a history of multiple sclerosis, neurology also had evaluated her. There were no new neurological symptoms. As far as kidney function is concerned, she is followed by a supervisor spring up in [place]. 13. She has diabetes, has been on insulin. She is followed by geosciences faculty member, Dr. Escalante in [place]. 14. She also has hypothyroidism. 15. History of heart failure. 16. Seizure disorder. HOME MEDICATIONS: Her home medications include aspirin 81 mg a day, atorvastatin 40, Lasix 40 mg p.r.n.; hydralazine 100 mg t.i.d., and she uses that p.r.n. as well; isosorbide mononitrate 60, phenytoin 100 mg 3 times a day, Mirapex 0.5 mg every night at bedtime, sertraline 50 mg, Brilinta 90 mg p.o. b.i.d., clonazepam 0.5 mg p.o. b.i.d. p.r.n., spironolactone 25 mg a day, insulin as directed, omega-3, Lovaza 1 capsule 2 mg twice daily, Repatha SureClick as directed, fenofibrate 48 mg 1 tablet daily, Tresiba, Coreg 12.5 mg twice daily, Lisinopril 20 mg a day, levothyroxine 50 mcg daily. ALLERGIES: She is not known to be allergic to any medications. SOCIAL HISTORY: She does not smoke. Does not drink. PHYSICAL EXAMINATION: Vital Signs: When she came to the hospital, blood pressure was 190/83, subsequent blood pressure 152/65, today her blood pressure 126/54. Cardiovascular System: Jugular venous pressure was normal. First and second heart sounds were heard. There was no S3 gallop. Respiratory System: Normal air entry. There is no crepitation. Distant breath sounds. Abdomen: Soft. Mild tenderness noted in the epigastric region. There was no guarding or rigidity. Bowel sounds were heard. Central Nervous System: Alert, oriented, and was moving all 4 extremities. Examination of extremities revealed no pedal edema. HEENT: Atraumatic, normocephalic. Pupils were equal and reacting to light. LABORATORY EXAMINATION: Sodium 133, potassium 4.2, BUN 27, creatinine 1, triglycerides 4329, cholesterol 503, HDL 12. Cardiac enzymes negative. WBC 5, hemoglobin 12.4, hematocrit 32.6, platelet count of 179. She had an abdominal ultrasound to rule out ascites. There was no evidence of ascites. She had hepatic steatosis. Her lipase was 60, initial lipase was 93, amylase 151. She had a myocardial perfusion scan done today, which revealed no evidence of ischemia. There was fixed defect in the inferior and inferolateral wall suggestive of infarct or scar. She also had an echocardiogram done, which revealed preserved left ventricular systolic function. Please see detailed echocardiogram report. ASSESSMENT AND PLAN: 1. Ms. Analilia Birmingham is a 64-year-old lady with a history of coronary artery disease, coronary artery bypass grafting, stent placement in 2019, saphenous vein graft to obtuse marginal artery, diabetes, severe hypertriglyceridemia, pancreatitis, history of renal insufficiency, who came to the hospital with increased weight gain and she thought that she had abdominal distention with fluid gain as well. She was evaluated by the [facility] Clinic at [facility], was advised to come to the hospital be admitted. Today she had multiple tests done to rule out ascites, a stress test and echocardiogram which were unremarkable. I think she is at an optimal fluid balance. I have not made any changes to her medication. She has had coronary artery disease, stent placement to the saphenous vein graft with a drug- eluting stent. She is on aspirin and Brilinta. I would recommend continuing the same. 2. Diabetes, continue with her home medications. 3. Hypertension, blood pressure was elevated when she came in. I suspect she has a significant anxiety overload, which could have pushed blood pressure up, but currently on the medication she is on her blood pressure is under control. I have not made any changes. 4. Hypertriglyceridemia. She is on multiple medications, is followed up in the [facility] at [place]. RECOMMENDATIONS: We will ambulate her. If she does well overnight, I would recommend discharging her home and follow up to see me as an outpatient as well. Thank you for the consultation. cc: MD RIRI Cardenas
[2019-04-14] MEDS: MIRAPEX PO SCH (20:57)
[2019-04-15] MEDS: HUMALOG SUBQ SCH ×3 (03:39→10:17)
[2019-04-15] MEDS: PRILOSEC PO SCH ×2 (05:21→07:28)
--- NOTE | 2019-04-15 06:20 | EKG Report ---
Test Performed on : 04/15/2019 06:06:53 AM Test Reason : dyspnea Blood Pressure : / mmHG Vent. Rate : 056 BPM Atrial Rate : 056 BPM P-R Int : 178 ms QRS Dur : 090 ms QT Int : 490 ms P-R-T Axes : 051 015 057 degrees QTc Int : 472 ms Sinus bradycardia. with sinus arrhythmia. Nonspecific T wave abnormality Prolonged QT Abnormal ECG When compared with ECG of 14-APR-2019 06:31, No significant change was found Confirmed by Jovany WADSWORTH, Melchor Amos ([id number]) on 04/16/2019 8:23:01 AM
[2019-04-15 07:28] LABS: CALCIUM 8.2 mg/dL (8.8-10.2); MAGNESIUM 2.1 mg/dL (1.5-2.7); POTASSIUM 4.1 mmol/L (3.5-5.1)
[2019-04-15] MEDS ORDERED: IMITREX PO ONE (10:52)
[2019-04-15] MEDS: ASPIRIN EC PO SCH (10:53)
[2019-04-15] MEDS: DILANTIN PO SCH (10:53)
[2019-04-15] MEDS: ALDACTONE PO SCH (10:53)
[2019-04-15] MEDS: IMDUR PO SCH (10:54)
[2019-04-15] MEDS: ZOLOFT PO SCH (10:54)
[2019-04-15] MEDS: PRINIVIL PO SCH (10:54)
[2019-04-15] MEDS: BRILINTA PO SCH (10:54)
[2019-04-15] MEDS: TRICOR PO SCH (10:55)
[2019-04-15] MEDS: COREG PO SCH (10:55)
[2019-04-15] MEDS: SYNTHROID PO SCH (10:55)
[2019-04-15 11:22] VITALS: BP 150/49
--- NOTE | 2019-04-15 14:38 | DISCHARGE SUMMARY ---
ADMISSION DATE: 04/13/2019 DISCHARGE DATE: 04/15/2019 PRIMARY CARE PHYSICIAN: Dr. Person. ADMISSION DIAGNOSES: 1. Chest pain rule out for an acute myocardial infarction. 2. Hypertriglyceridemia with a questionable acute or chronic pancreatitis. 3. Hyponatremia. 4. Diabetes type 2 with hyperglycemia. 5. Acute kidney injury with mild renal insufficiency. DISCHARGE DIAGNOSES: 1. Chest pain ruled out for myocardial infarction with normal images revealed with no evidence of ischemia on her stress test. 2. Hypertriglyceridemia with a questionable acute or chronic pancreatitis. 3. Hyponatremia resolved. 4. Diabetes type 2. 5. Acute kidney injury with chronic renal insufficiency resolved. SUMMARY OF FINDINGS: This is a 64-year-old female who presented to the ER having fullness in her abdomen and shortness of breath for the past 3 to 4 days prior to arriving. States on the day of arrival she had been in [place] and continued to not feel well so she came to the ER. She was admitted. Cardiac enzymes x4 sets were negative. She had a low sodium on arrival of 129, a creatinine of 1.3. Her triglycerides were elevated at 4329. We did an abdomen x-ray that was showing constipation and a prominent liver. We did an abdomen ultrasound that showed likely hepatic steatosis but no evidence of ascites. We did a echocardiogram that was read as an ejection fraction of 60% with diastolic dysfunction. We did consult Cardiology. We did a myocardial perfusion scan that showed a severe grade of a fixed defect in the inferior and inferior lateral wall suggestive of infarct or scar. Ejection fraction was gated, SPECT of 65%,no evidence of ischemia. It was felt that she can be discharged home today. DISCHARGE MEDICATIONS: Include aspirin 81 mg p.o. daily, carvedilol 12.5 mg p.o. b.i.d., clonazepam 0.5 mg p.o. b.i.d. p.r.n., vitamin D2 50,000 units 1 capsule daily, TriCor 48 mg p.o. daily, hydralazine 100 mg p.o. t.i.d. p.r.n., Imdur 60 mg p.o. daily, levothyroxine 50 mcg p.o. daily, lisinopril 20 mg p.o. b.i.d., Dilantin 100 mg p.o. t.i.d., Mirapex 0.5 mg p.o. at bedtime, sertraline 50 mg p.o. daily, spironolactone 25 mg p.o. p.r.n., Brilinta 90 mg p.o. b.i.d., Lipitor 40 mg p.o. daily, calcium 500+ vitamin D p.o. daily, vitamin D2 50,000 units daily, Repatha subcu as directed, NovoLog 35 units subcu as directed and Lasix 40 mg p.o. daily, Tresiba FlexTouch 85 units subcu daily, nitroglycerin 0.4 mg sublingually p.r.n., Lovaza 2 g p.o. b.i.d., Protonix 40 mg p.o. daily and Imitrex 50 mg p.o. p.r.n. FOLLOWUP: She will need to follow up with her primary care physician and call the office for an appointment in the next 1 to 2 weeks and with Cardiology call their office and make an appointment in the next 1 month. All discharge instructions have been reviewed with the patient and she verbalized understanding. TIME SPENT: 35 minutes. Dictated by BEHZAD Ayala for Trey Turcios MD cc: Basil Sawyer MD Agree with the above. chest and abdominal pain resolved. cardiac workup unremarkable. suspect she may have had mild flare of pancreatitis as the cause of her symptoms but abdominal exam benign at this point and repeat lipase normal. triglycerides were quite high so we increased her atorvastatin to max dose. MTDD
== END 2019-04-15 12:53 | disposition home or self-care (01) | DRG 313 ==
LOC: ED 12:50 → SUATTDRO 21:20 → 4N 21:20
PROVIDERS: ATTEND Internal Medicine